=== PATIENT | female | born 1965 | race Two or more races ===

== ENCOUNTER → 2020-05-23 15:11 | Outpatient (BNVA) | payer MEDICARE, OTHER, SELFPAY | PROVIDERS: PCP Internal Medicine; Visit Provider Student in an Organized Health Care Education/Training Program | DX: M05.9 Rheumatoid arthritis with rheumatoid factor, unspecified (principal); B18.1 Chronic viral hepatitis B without delta-agent; Z79.899 Other long term (current) drug therapy | CPT/HCPCS: 99214 ==

== ENCOUNTER → 2020-06-17 09:58 | Outpatient (BNVA) | payer MEDICARE, OTHER, SELFPAY | PROVIDERS: PCP Internal Medicine; Referring Provider Internal Medicine; Visit Provider Nurse Practitioner | DX: Z76.89 Persons encountering health services in other specified circumstances (principal) ==

== ENCOUNTER 2020-09-03 09:20 | Outpatient (REF) | payer MEDICARE, OTHER, SELFPAY ==
[2020-09-03 10:21] LABS: MANUAL DIFF FLAG NO
[2020-09-03 10:24] LABS: Basophils Percent Auto 0.5 % (0-2); Eosinophils Absolute Auto 0.2 X10*3/uL (0.0-0.4); Eosinophils Percent Auto 3.5 % (0-4); Hematocrit 39.6 % (37-47); Hemoglobin 12.7 g/dl (12.0-16.0); Imm Gran Abs Auto 0.01 X10*3/uL (0.00-0.03); Imm Gran Pct Auto 0.2 % (0.0-0.4); Lymphocytes Absolute Auto 2.2 X10*3/uL (1.2-4.9); Lymphocytes Percent Auto 34.2 % (20-40); Mean Corpuscular HGB Conc 32.1 g/dl (31.0-35.0); Mean Corpuscular Hemoglobin 28.5 pg (27.0-33.0); Mean Platelet Volume 10.1 fL (9.4-12.3); Monocytes Absolute Auto 0.5 X10*3/uL (0.1-1.2); Monocytes Percent Auto 6.9 % (2-11); Neutrophils Absolute Auto 3.6 X10*3/uL (2.0-8.3); Neutrophils Percent Auto 54.7 % (45-73); Platelet Count 249 X10*3/uL (160-400); Red Blood Count 4.45 X10*6/uL (4.20-5.50); Red Cell Distribution Width 13.1 % (11.0-16.0); White Blood Count 6.6 X10*3/uL (4.8-10.8)
[2020-09-03 10:52] LABS: Alanine Aminotransferase 37 U/L (0-31); Albumin Level 4.1 g/dL (3.5-5.0); Alkaline Phosphatase 82 U/L (39-117); Anion Gap 12 (12-20); Aspartate Amino Transferase 25 U/L (5-31); Bilirubin Total 0.6 mg/dL (0.0-1.0); Blood Urea Nitrogen 12 mg/dL (9-16); Calcium 9.4 mg/dL (8.4-10.2); Carbon Dioxide 28 mmol/L (22-29); Chloride 103 mmol/L (96-108); Estimated Glomerular Filt Rate > 60; Glucose Random 286 mg/dL (60-115); Potassium 4.1 mmol/l (3.3-5.1); Sodium 139 mmol/L (135-145); Total Protein 7.4 g/dL (6.5-8.0)
[2020-09-03 11:26] LABS: Erythrocyte Sedimentation Rate 23 MM/HR (0-20)
== END 2020-09-03 09:21 | disposition home or self-care (01) ==
LOC: HO.LAB 09:20
PROVIDERS: PCP Internal Medicine; Visit Provider Student in an Organized Health Care Education/Training Program
DX: M05.9 Rheumatoid arthritis with rheumatoid factor, unspecified (principal); B18.1 Chronic viral hepatitis B without delta-agent; Z79.899 Other long term (current) drug therapy
CPT/HCPCS: 36415; 80053; 85025; 85652; 86140; 99212

== ENCOUNTER → 2020-10-03 11:16 | Outpatient (BNVA) | payer MEDICARE, OTHER, SELFPAY | PROVIDERS: PCP Internal Medicine; Visit Provider Nurse Practitioner Gerontology | DX: Z13.89 Encounter for screening for other disorder (principal) | CPT/HCPCS: Q3014 ==

== ENCOUNTER → 2020-10-23 16:24 | Outpatient (BNVA) | payer MEDICARE, SELFPAY | PROVIDERS: PCP Internal Medicine; Visit Provider Student in an Organized Health Care Education/Training Program | DX: M05.9 Rheumatoid arthritis with rheumatoid factor, unspecified (principal); B18.1 Chronic viral hepatitis B without delta-agent; Z79.899 Other long term (current) drug therapy | CPT/HCPCS: 99212 ==

== ENCOUNTER → 2020-10-29 14:22 | Outpatient (BNVA) | payer MEDICARE, SELFPAY | PROVIDERS: Visit Provider Dietitian, Registered ==

== ENCOUNTER 2021-02-12 08:03 | Outpatient (REF) | payer MEDICARE, OTHER, SELFPAY ==
[2021-02-12 08:51] LABS: MANUAL DIFF FLAG NO
[2021-02-12 08:55] LABS: Basophils Percent Auto 0.4 % (0-2); Eosinophils Absolute Auto 0.3 X10*3/uL (0.0-0.4); Eosinophils Percent Auto 4.2 % (0-4); Hematocrit 36.1 % (37-47); Hemoglobin 11.8 g/dl (12.0-16.0); Imm Gran Abs Auto 0.02 X10*3/uL (0.00-0.03); Imm Gran Pct Auto 0.3 % (0.0-0.4); Lymphocytes Absolute Auto 2.6 X10*3/uL (1.2-4.9); Lymphocytes Percent Auto 35.3 % (20-40); Mean Corpuscular HGB Conc 32.7 g/dl (31.0-35.0); Mean Corpuscular Hemoglobin 29.4 pg (27.0-33.0); Mean Corpuscular Volume 89.8 fL (80-98); Mean Platelet Volume 10.3 fL (9.4-12.3); Monocytes Absolute Auto 0.6 X10*3/uL (0.1-1.2); Monocytes Percent Auto 8.2 % (2-11); Neutrophils Absolute Auto 3.8 X10*3/uL (2.0-8.3); Neutrophils Percent Auto 51.6 % (45-73); Platelet Count 269 X10*3/uL (160-400); Red Blood Count 4.02 X10*6/uL (4.20-5.50); Red Cell Distribution Width 14.5 % (11.0-16.0); White Blood Count 7.4 X10*3/uL (4.8-10.8)
[2021-02-12 09:29] LABS: Alanine Aminotransferase 19 U/L (0-31); Albumin Level 3.8 g/dL (3.5-5.0); Alkaline Phosphatase 82 U/L (39-117); Anion Gap 13 (12-20); Aspartate Amino Transferase 22 U/L (5-31); Bilirubin Total 0.3 mg/dL (0.0-1.0); Blood Urea Nitrogen 12 mg/dL (9-16); C Reactive Protein 0.18 mg/dL (< or = 0.50); Calcium 9.2 mg/dL (8.4-10.2); Carbon Dioxide 27 mmol/L (22-29); Chloride 105 mmol/L (96-108); Estimated Glomerular Filt Rate > 60; Glucose Random 160 mg/dL (60-115); Sodium 141 mmol/L (135-145); Total Protein 6.8 g/dL (6.5-8.0)
[2021-02-12 10:19] LABS: Erythrocyte Sedimentation Rate 19 MM/HR (0-20)
== END 2021-02-12 08:04 | disposition home or self-care (01) ==
LOC: HO.LAB 08:03
PROVIDERS: PCP Student in an Organized Health Care Education/Training Program; Visit Provider Internal Medicine
DX: M05.9 Rheumatoid arthritis with rheumatoid factor, unspecified (principal)
CPT/HCPCS: 36415; 80053; 85025; 85652; 86140

== ENCOUNTER → 2021-02-26 14:49 | Outpatient (BNVA) | payer MEDICARE, OTHER, SELFPAY | PROVIDERS: PCP Internal Medicine; Visit Provider Student in an Organized Health Care Education/Training Program | DX: M05.9 Rheumatoid arthritis with rheumatoid factor, unspecified (principal); B18.1 Chronic viral hepatitis B without delta-agent; Z79.899 Other long term (current) drug therapy | CPT/HCPCS: 99212 ==

== ENCOUNTER 2021-03-14 11:14 | Outpatient (REF) | payer MEDICARE, OTHER, SELFPAY ==
[2021-03-14 12:08] LABS: MANUAL DIFF FLAG NO
[2021-03-14 12:16] LABS: Basophils Percent Auto 0.4 % (0-2); Eosinophils Absolute Auto 0.3 X10*3/uL (0.0-0.4); Eosinophils Percent Auto 3.6 % (0-4); Hematocrit 36.4 % (37-47); Hemoglobin 11.8 g/dl (12.0-16.0); Imm Gran Abs Auto 0.01 X10*3/uL (0.00-0.03); Imm Gran Pct Auto 0.1 % (0.0-0.4); Lymphocytes Absolute Auto 2.3 X10*3/uL (1.2-4.9); Lymphocytes Percent Auto 31.9 % (20-40); Mean Corpuscular HGB Conc 32.4 g/dl (31.0-35.0); Mean Corpuscular Hemoglobin 29.1 pg (27.0-33.0); Mean Corpuscular Volume 89.9 fL (80-98); Mean Platelet Volume 10.7 fL (9.4-12.3); Monocytes Absolute Auto 0.4 X10*3/uL (0.1-1.2); Monocytes Percent Auto 6.1 % (2-11); Neutrophils Absolute Auto 4.2 X10*3/uL (2.0-8.3); Neutrophils Percent Auto 57.9 % (45-73); Platelet Count 263 X10*3/uL (160-400); Red Blood Count 4.05 X10*6/uL (4.20-5.50); Red Cell Distribution Width 14.2 % (11.0-16.0); White Blood Count 7.2 X10*3/uL (4.8-10.8)
[2021-03-14 12:28] LABS: Alanine Aminotransferase 31 U/L (0-31); Albumin Level 3.8 g/dL (3.5-5.0); Alkaline Phosphatase 73 U/L (39-117); Anion Gap 11 (12-20); Aspartate Amino Transferase 27 U/L (5-31); Bilirubin Total 0.2 mg/dL (0.0-1.0); Blood Urea Nitrogen 7 mg/dL (9-16); C Reactive Protein 0.13 mg/dL (< or = 0.50); Calcium 9.4 mg/dL (8.4-10.2); Carbon Dioxide 27 mmol/L (22-29); Chloride 105 mmol/L (96-108); Estimated Glomerular Filt Rate > 60; Glucose Random 231 mg/dL (60-115); Potassium 4.3 mmol/L (3.3-5.1); Sodium 139 mmol/L (135-145); Total Protein 6.8 g/dL (6.5-8.0)
[2021-03-14 13:02] LABS: Erythrocyte Sedimentation Rate 19 MM/HR (0-20)
[2021-03-16 18:36] LABS: TS Negative Control Passed; TS Panel A 0; TS Panel B 0; TS Positive Control Passed; TSpotTB Negative (SeeBelow)
== END 2021-03-14 11:15 | disposition home or self-care (01) ==
LOC: HO.LAB 11:14
PROVIDERS: PCP Internal Medicine; Visit Provider Student in an Organized Health Care Education/Training Program
DX: Z11.1 Encounter for screening for respiratory tuberculosis (principal); M05.9 Rheumatoid arthritis with rheumatoid factor, unspecified
CPT/HCPCS: 36415; 80053; 85025; 85652; 86140; 86481

== ENCOUNTER → 2021-04-07 09:53 | Outpatient (BNVA) | payer MEDICARE, OTHER, SELFPAY | PROVIDERS: Visit Provider Internal Medicine | DX: G89.4 Chronic pain syndrome (principal); M05.9 Rheumatoid arthritis with rheumatoid factor, unspecified; M79.7 Fibromyalgia; M79.18 Myalgia, other site | CPT/HCPCS: 99202 ==

== ENCOUNTER → 2021-04-18 13:51 | Outpatient (BNVA) | payer MEDICARE, OTHER, SELFPAY | PROVIDERS: Visit Provider Nurse Practitioner Gerontology | DX: E11.3219 Type 2 diabetes mellitus with mild nonproliferative diabetic retinopathy with macular edema, unspecified eye (principal); I10 Essential (primary) hypertension; E78.00 Pure hypercholesterolemia, unspecified; E55.9 Vitamin D deficiency, unspecified; Z79.4 Long term (current) use of insulin | CPT/HCPCS: 82947; 83036; 99212 ==

== ENCOUNTER 2021-04-25 11:45 | Outpatient (REF) | payer MEDICARE, OTHER, SELFPAY ==
--- NOTE | ~2021-04-25 | MM_ITS ---
EXAMINATION: MM SCREENING DIGITAL BREAST TOMOSYNTHESIS, BILATERAL CLINICAL INFORMATION: Screening. Asymptomatic. The lifetime risk of breast cancer based on the Tyrer-Cuzick Model is 23.5%. Additional annual screening with breast MRI may be of benefit in women with a Score of 20% or greater. COMPARISON: Mammography: January 15, 2020 and studies dating back to April 23, 2014 TECHNIQUE: Digital breast tomosynthesis is performed in both the craniocaudal and mediolateral oblique views along with computer-aided detection (CAD). Synthesized 2D images are generated from the tomosynthesis. FINDINGS: The breasts are heterogeneously dense, which may obscure small masses (ACR BI-RADS breast composition Category c). There are no new significant masses, abnormal calcifications, or other abnormalities. Region of architectural distortion upper outer aspect of the left breast again seen. MM/MM tomosynthesis screening BI IMPRESSION: There are no significant changes from prior study. ASSESSMENT: BI-RADS 2: Benign RECOMMENDATION: Routine annual mammography screening. This patient's information was entered into a reminder system with a target due date for their next mammogram.
== END 2021-04-25 11:46 | disposition home or self-care (01) ==
LOC: HO.MAMMO 11:45
PROVIDERS: PCP Internal Medicine; Visit Provider Internal Medicine
DX: Z12.31 Encounter for screening mammogram for malignant neoplasm of breast (principal)
CPT/HCPCS: 77063; 77067

== ENCOUNTER 2021-06-20 21:56 | Emergency (ER) | payer MEDICARE, OTHER, SELFPAY ==
--- NOTE | ~2021-06-20 | CT_ITS ---
EXAMINATION: NONCONTRAST HEAD CT NONCONTRAST CERVICAL SPINE CT INDICATION INFORMATION: Fall COMPARISON: None TECHNIQUE: Separate noncontrast CT examinations of the head and cervical spine were performed. Coronal and sagittal images were created for each examination at the technologist workstation. This CT examination was performed using dose optimization techniques as appropriate, variously including the following: *Automated exposure control *Adjustment of mA and/or kV according to patient size (this includes techniques or standardized protocols for targeted exams where dose is matched to indication/reason for exam; i.e. extremities or head) *Use of iterative reconstruction technique DLP: 1109 mGy-cm FINDINGS: Head: There is no evidence of acute intracranial hemorrhage or territorial infarction. No abnormal mass effect or midline shift is seen. Fontanez to white matter differentiation is well preserved. No extra-axial fluid collections are identified. No hydrocephalus. No significant volume loss. There is no abnormal attenuation within the brain parenchyma. Subgaleal hematoma overlies the right parietal region. No calvarial fracture. Mild mucoperiosteal thickening of the right sphenoid sinus and of the ethmoid air cells. The mastoid air cells and visualized portions of the paranasal sinuses are otherwise well aerated. Cervical spine: Straightening of the normal cervical lordosis. There is otherwise anatomic alignment of the vertebral bodies and posterior elements. The atlantoaxial and atlantooccipital articulations are intact. Vertebral body heights maintained. Mild disc space narrowing at C5-C6 with small endplate osteophytes. No evidence of acute fracture. No prevertebral soft tissue swelling. Visualized portions of the lung apices are unremarkable. The thyroid gland is heterogeneous with subcentimeter nodules. No follow-up imaging recommended. CT/CT cervical spine wo con IMPRESSION: 1. No acute intracranial finding. Prominent subgaleal hematoma over the right parietal region. 2. No fracture or malalignment of the cervical spine.
[2021-06-20 21:59] VITALS: BP 172/98; PULSE 95; RESP 20; TEMP 35.6; O2SAT 98; BMI 27.3
--- NOTE | 2021-06-20 22:13 | ED_ITS ---
HPI - Fall General Chief Complaint: Fall Stated Complaint: fall Time Seen by Provider: 06/20/21 22:13 Source: patient and family Mode of arrival: EMS Limitations: no limitations History of Present Illness HPI Narrative: Every patient had few drinks tonight lost balance and fell on the stairs hitting her head to the ground , no loss of consciousness no nausea no vomiting no other focal weakness patient is not on any blood thinners Related Data Home Medications Medication Instructions Recorded Confirmed methotrexate sodium 2.5 mg tablet See Rx Instructions PO QWEEK 05/23/20 04/18/21 gabapentin 400 mg capsule 400 mg PO QID cap 10/03/20 04/07/21 ketorolac 0.5 % eye drops 1 drp OPHTHALMIC-RIGHT QID 10/03/20 04/07/21 insulin glargine 100 unit/mL (3 12 unit SUBCUT QPM ml 04/18/21 04/18/21 mL) subcutaneous pen (Lantus Solostar U-100 Insulin) Previous Rx's Medication Instructions Recorded pen needle, diabetic 32 gauge x #100 ea 09/03/20 (BD Ultra-Fine Yessi Pen Needle) cholecalciferol (vitamin D3) 25 25 mcg PO DAILY #90 cap 11/21/20 mcg (1,000 unit) capsule (Vitamin D3) diclofenac sodium 1 % topical gel 4 g TOPICAL BID #100 g 02/26/21 (Voltaren Arthritis Pain) folic acid 1 mg tablet 1 mg PO DAILY #90 tab 03/25/21 sulfasalazine 500 mg tablet 1,000 mg PO BID #120 tab 03/25/21 trazodone 100 mg tablet 100 mg PO BEDTIME PRN 90 Days #90 03/25/21 tab dulaglutide 0.75 mg/0.5 mL 0.75 mg (0.5 mL) SUBCUT QWEEK #2 ml 04/18/21 [facility] glipizide 5 mg-metformin 500 mg 1 tab PO BID #180 tab 05/26/21 tablet atorvastatin 80 mg tablet 80 mg PO DAILY #90 tab 06/13/21 lisinopril 5 mg tablet 5 mg PO DAILY 90 Days #90 tab 06/13/21 duloxetine 20 mg capsule,delayed 20 mg PO BID #60 cap 06/19/21 release Allergies Allergy/AdvReac Type Severity Reaction Status Date / Time bee pollen [BEE STINGS] Allergy Intermediate HIVES Verified 04/18/21 14:12 wasp bites Allergy Intermediate hives Uncoded 04/18/21 14:12 Review of Systems Review of Systems: Yes all other systems are reviewed and are negative [facility] Past Medical History Medical History Anxiety Depression Diabetes mellitus Fibromyalgia Hepatitis B Hyperlipidemia Hypertension Hypovitaminosis D Myofascial pain Rheumatoid arthritis Type 2 diabetes, uncontrolled, with nonproliferative retinopathy with macular edema Surgical History H/O left breast biopsy H/O oral surgery H/O: knee surgery History of hysterectomy Family History Family History Father CVD (cardiovascular disease) HTN (hypertension) Diabetes Brother CVD (cardiovascular disease) Mother Liver cancer Son Asthma Paternal Aunt HTN (hypertension) Diabetes Social History Social History Household Members: Spouse Housing: House Alcohol intake: current Alcohol intake frequency: a few times a month Alcohol type: wine and hard liquor Patient Tobacco Use Status: Never used Tobacco e-Cigarette/Vaping Use: Never Used Advance Directives: No Patient : No Current occupational status: disabled Physical Exam Vital Signs: Vital Signs: Last Vital Signs Temp 96.1 F L 06/20/21 21:59 Pulse 95 06/20/21 21:59 Resp 20 06/20/21 21:59 BP 172/98 H 06/20/21 21:59 Pulse Ox 98 06/20/21 21:59 Body Mass Index 27.3 Appearance: Alert. Oriented X3. No acute distress. Intoxicated Eyes: PERRLA, No Nystagmus ENT: Pharynx normal. Oral Mucosa moist Neck: Normal inspection. Neck supple. CVS: Normal heart rate and rhythm. Pulses normal. Respiratory: No respiratory distress. Equal air entry bilateral, no wheezing/rales/rhonchi Abdomen: Soft and nontender. Bowel sounds are present, no mass palpable, no CVA tenderness Skin: Skin warm and dry. Normal skin color. Normal skin turgor. Extremities: No lower extremity edema. No calf tenderness Neuro: Oriented X 3. No motor deficit. No sensory deficit.No cerebellar signs , cranial nerves II-XII intact HENMT: Head images: 1. Soft tissue swelling occipital area no open wound or laceration MDM - Fall MDM Narrative Medical decision making narrative: Patient status post mechanical fall the influence of alcohol head CT C-spine negative patient ambulatory in the ER will send her home with family Discharge Plan Discharge Clinical Impression: Closed head injury Qualifiers: Encounter type: initial encounter Qualified Code(s): S09.90XA - Unspecified injury of head, initial encounter Patient Disposition: Home, Self-Care Instructions: Head Injury (ED) Additional Instructions: Do not drink alcohol Apply ice, care as advised Prescriptions: No Action (DME) pen needle, diabetic [BD Ultra-Fine Yessi Pen Needle] 32 gauge x 5/32 needle See Rx Instructions .ROUTE .MEDSUPPLY Qty: 100 RF: 3 cholecalciferol (vitamin D3) [Vitamin D3] 25 mcg (1,000 unit) capsule 25 mcg PO DAILY Qty: 90 RF: 3 trazodone 100 mg tablet 100 mg PO BEDTIME PRN (Reason: insomnia) 90 Days Qty: 90 RF: 0 sulfasalazine 500 mg tablet 1,000 mg PO BID Qty: 120 RF: 2 folic acid 1 mg tablet 1 mg PO DAILY Qty: 90 RF: 3 glipizide-metformin 5-500 mg tablet 1 tab PO BID Qty: 180 RF: 0 atorvastatin 80 mg tablet 80 mg PO DAILY Qty: 90 RF: 1 lisinopril 5 mg tablet 5 mg PO DAILY 90 Days Qty: 90 RF: 1 duloxetine 20 mg capsule,delayed release(DR/EC) 20 mg PO BID Qty: 60 RF: 5 ketorolac 0.5 % drops 1 drp ophthalmic-Right QID RF: 0 diclofenac sodium [Voltaren Arthritis Pain] 1 % gel 4 g topical BID Qty: 100 RF: 2 Lantus Solostar U-100 Insulin 100 unit/mL (3 mL) insulin pen 12 unit subcut QPM RF: 0 Trulicity 0.75 mg/0.5 mL pen injector 0.75 mg subcut QWEEK Qty: 2 RF: 6 methotrexate sodium 2.5 mg tablet See Rx Instructions PO QWEEK RF: 0 gabapentin 400 mg capsule 400 mg PO QID RF: 0
--- NOTE | 2021-06-20 22:32 | PC.NURSE ---
PATIENT IN CT SCAN AT THIS TIME. SON AT BEDSIDE.
[2021-06-21] MEDS: Ondansetron ODT 4 MG TAB.RAPDIS TRANSLINGU (00:24)
== END 2021-06-21 00:20 | disposition home or self-care (01) ==
PROVIDERS: Emergency Provider Internal Medicine; PCP Internal Medicine
DX: S09.90XA Unspecified injury of head, initial encounter (principal); E11.9 Type 2 diabetes mellitus without complications; I10 Essential (primary) hypertension; W10.9XXA Fall (on) (from) unspecified stairs and steps, initial encounter; Y93.9 Activity, unspecified; Y92.9 Unspecified place or not applicable; Y99.9 Unspecified external cause status
CPT/HCPCS: 70450; 72125; 99284

== ENCOUNTER 2021-06-23 08:59 | Outpatient (REF) | payer MEDICARE, OTHER, SELFPAY ==
[2021-06-23 11:03] LABS: Cholesterol 157 mg/dL; HDL Cholesterol 48 mg/dL; LDL Cholesterol Calculated 87 mg/dl; Triglycerides 111 mg/dL
[2021-06-23 11:26] LABS: Vitamin D 25-OH Total 36.8 ng/mL (>30)
== END 2021-06-23 09:00 | disposition home or self-care (01) ==
LOC: HO.LAB 08:59
PROVIDERS: Absent Provider Nurse Practitioner Gerontology; PCP Internal Medicine; Visit Provider Internal Medicine
DX: M05.9 Rheumatoid arthritis with rheumatoid factor, unspecified (principal); G89.4 Chronic pain syndrome; E11.9 Type 2 diabetes mellitus without complications; E55.9 Vitamin D deficiency, unspecified
CPT/HCPCS: 36415; 80061; 82306; 99212

== ENCOUNTER → 2021-07-28 10:33 | Outpatient (BNVA) | payer MEDICARE, OTHER, SELFPAY | PROVIDERS: PCP Internal Medicine; Visit Provider Internal Medicine | DX: M79.18 Myalgia, other site (principal); M05.9 Rheumatoid arthritis with rheumatoid factor, unspecified; G89.4 Chronic pain syndrome | CPT/HCPCS: 99212 ==

== ENCOUNTER 2021-11-04 11:33 | Outpatient (REF) | payer MEDICARE, SELFPAY ==
[2021-11-04 13:50] LABS: MANUAL DIFF FLAG NO
[2021-11-04 13:53] LABS: Basophils Percent Auto 0.4 % (0-2); Eosinophils Absolute Auto 0.2 X10*3/uL (0.0-0.4); Eosinophils Percent Auto 2.8 % (0-4); Hematocrit 40.3 % (37.0-47.0); Hemoglobin 12.9 g/dl (12.0-16.0); Imm Gran Abs Auto 0.02 X10*3/uL (0.00-0.03); Imm Gran Pct Auto 0.3 % (0.0-0.4); Lymphocytes Absolute Auto 2.9 X10*3/uL (1.2-4.9); Lymphocytes Percent Auto 37.8 % (20-40); Mean Corpuscular Hemoglobin 28.7 pg (27.0-33.0); Mean Corpuscular Volume 89.8 fL (80.0-98.0); Mean Platelet Volume 10.9 fL (9.4-12.3); Monocytes Absolute Auto 0.4 X10*3/uL (0.1-1.2); Monocytes Percent Auto 5.3 % (2-11); Neutrophils Absolute Auto 4.1 x10*3/uL (2.0-8.3); Neutrophils Percent Auto 53.4 % (45-73); Platelet Count 264 X10*3/uL (160-400); Red Blood Count 4.49 X10*6/uL (4.20-5.50); Red Cell Distribution Width 13.2 % (11.0-16.0); White Blood Count 7.6 X10*3/uL (4.8-10.8)
[2021-11-04 14:07] LABS: Alanine Aminotransferase 21 U/L (0-31); Albumin Level 4.1 g/dL (3.5-5.0); Alkaline Phosphatase 90 U/L (39-117); Anion Gap 10 (12-20); Aspartate Amino Transferase 22 U/L (5-31); Bilirubin Total 0.2 mg/dL (0.0-1.0); Blood Urea Nitrogen 12 mg/dL (9-16); Calcium 9.4 mg/dL (8.4-10.2); Carbon Dioxide 29 mmol/L (22-29); Chloride 105 mmol/L (96-108); Estimated Glomerular Filt Rate > 60; Glucose Random 187 mg/dL (60-115); Potassium 4.2 mmol/L (3.3-5.1); Sodium 140 mmol/L (135-145); Total Protein 7.5 g/dL (6.5-8.0)
[2021-11-04 14:30] LABS: TSH reflex Free T4 2.11 uIU/mL (0.32-4.0)
[2021-11-04 14:38] LABS: Estimated Average Glucose 229 mg/dL; Hemoglobin A1c % 9.6 %
[2021-11-06 07:37] LABS: LDL Cholesterol Direct 88 mg/dL (<100)
== END 2021-11-04 11:34 | disposition home or self-care (01) ==
LOC: HO.HMGCLDS 11:33
PROVIDERS: Visit Provider Internal Medicine
DX: E11.65 Type 2 diabetes mellitus with hyperglycemia (principal); E11.3219 Type 2 diabetes mellitus with mild nonproliferative diabetic retinopathy with macular edema, unspecified eye; I10 Essential (primary) hypertension; E78.5 Hyperlipidemia, unspecified; G47.9 Sleep disorder, unspecified; M79.18 Myalgia, other site; F41.1 Generalized anxiety disorder
CPT/HCPCS: 36415; 80053; 83036; 83721; 84443; 85025

== ENCOUNTER → 2021-12-15 09:29 | Outpatient (BNVA) | payer MEDICARE, SELFPAY | PROVIDERS: PCP Internal Medicine; Visit Provider Internal Medicine | DX: M05.9 Rheumatoid arthritis with rheumatoid factor, unspecified (principal); G89.29 Other chronic pain | CPT/HCPCS: 99212 ==

== ENCOUNTER 2021-12-17 10:50 | Outpatient (REF) | payer MEDICARE, SELFPAY ==
--- NOTE | ~2021-12-17 | XR_ITS ---
EXAMINATION: XR KNEE, RIGHT XR SHOULDER, RIGHT CLINICAL INFORMATION: Rheumatoid arthritis. COMPARISON: None. TECHNIQUE: Right knee 3 views. Right shoulder 4 views. FINDINGS: RIGHT KNEE: Minimal loss of medial compartment joint space. The lateral and patellofemoral compartment joint space is normal. There is trace suprapatellar joint effusion. No bony lytic or sclerotic process seen. There are no loose bodies or bony erosive changes. RIGHT SHOULDER: There is minimal loss of right glenohumeral joint space. The AC joint space is normal. There is no visible acute fracture, dislocation or subluxation. The soft tissues are normal. XR/XR shoulder RT min 2V IMPRESSION: Minimal loss of medial compartment joint space right knee. No visible acute fracture or dislocation. Mild loss of glenohumeral joint space, likely early arthritic changes. No visible acute fracture, dislocation or subluxation seen.
--- NOTE | ~2021-12-17 | XR_ITS ---
EXAMINATION: XR KNEE, RIGHT XR SHOULDER, RIGHT CLINICAL INFORMATION: Rheumatoid arthritis. COMPARISON: None. TECHNIQUE: Right knee 3 views. Right shoulder 4 views. FINDINGS: RIGHT KNEE: Minimal loss of medial compartment joint space. The lateral and patellofemoral compartment joint space is normal. There is trace suprapatellar joint effusion. No bony lytic or sclerotic process seen. There are no loose bodies or bony erosive changes. RIGHT SHOULDER: There is minimal loss of right glenohumeral joint space. The AC joint space is normal. There is no visible acute fracture, dislocation or subluxation. The soft tissues are normal. XR/XR knee RT 3V IMPRESSION: Minimal loss of medial compartment joint space right knee. No visible acute fracture or dislocation. Mild loss of glenohumeral joint space, likely early arthritic changes. No visible acute fracture, dislocation or subluxation seen.
[2021-12-17 13:56] LABS: Alanine Aminotransferase 16 U/L (0-31); Albumin Level 3.9 g/dL (3.5-5.0); Alkaline Phosphatase 83 U/L (39-117); Anion Gap 13 (12-20); Aspartate Amino Transferase 19 U/L (5-31); Bilirubin Total 0.2 mg/dL (0.0-1.0); Blood Urea Nitrogen 11 mg/dL (9-16); C Reactive Protein 0.14 mg/dL (< or = 0.50); Calcium 9.5 mg/dL (8.4-10.2); Carbon Dioxide 26 mmol/L (22-29); Chloride 104 mmol/L (96-108); Estimated Glomerular Filt Rate > 60; Glucose Random 213 mg/dL (60-115); Potassium 4.3 mmol/L (3.3-5.1); Sodium 139 mmol/L (135-145)
[2021-12-17 14:13] LABS: Erythrocyte Sedimentation Rate 27 MM/HR (0-20)
[2021-12-18 05:59] LABS: HBS Num1 0.12 mIU/mL (0-7.99); ~Hepatitis B Surface Antibody NONREACTIVE (Nonreactive)
[2021-12-18 06:43] LABS: HBc Num2 9.79 S/CO; HBc Num3 10.23 S/CO; Hepatitis B Core Antibody Reactive (Nonreactive)
[2021-12-18 07:26] LABS: HBsAGNum2 Reactive; HBsAGNum3 Reactive; Hepatitis B Surface Antigen Retest CNFM (Negative)
[2021-12-18 07:29] LABS: Hepatitis B Surface Antigen Rep Reactive (Negative)
== END 2021-12-17 10:51 | disposition home or self-care (01) ==
LOC: HO.LAB 10:50
PROVIDERS: PCP Internal Medicine; Visit Provider Internal Medicine Rheumatology
DX: M05.9 Rheumatoid arthritis with rheumatoid factor, unspecified (principal); E11.3219 Type 2 diabetes mellitus with mild nonproliferative diabetic retinopathy with macular edema, unspecified eye; E11.65 Type 2 diabetes mellitus with hyperglycemia; B18.1 Chronic viral hepatitis B without delta-agent; Z79.899 Other long term (current) drug therapy
CPT/HCPCS: 36415; 73030; 73562; 80053; 85652; 86140; 86704; 86706; 87340; 99212

== ENCOUNTER → 2021-12-22 09:56 | Outpatient (BNVA) | payer MEDICARE, SELFPAY | PROVIDERS: PCP Internal Medicine; Visit Provider Nurse Practitioner Gerontology | DX: E11.3219 Type 2 diabetes mellitus with mild nonproliferative diabetic retinopathy with macular edema, unspecified eye (principal); E78.00 Pure hypercholesterolemia, unspecified; E55.9 Vitamin D deficiency, unspecified; I10 Essential (primary) hypertension; Z79.4 Long term (current) use of insulin | CPT/HCPCS: 82947; 99212 ==

== ENCOUNTER 2022-09-08 11:42 | Outpatient (REF) | payer MEDICARE, SELFPAY ==
--- NOTE | ~2022-09-08 | MM_ITS ---
EXAMINATION: MM SCREENING DIGITAL BREAST TOMOSYNTHESIS, BILATERAL CLINICAL INFORMATION: Screening. Asymptomatic. The lifetime risk of breast cancer based on the Tyrer-Cuzick Model is 12%. COMPARISON: Mammography: 04/25/2021, 01/15/2020, 12/02/2018 TECHNIQUE: Digital breast tomosynthesis is performed in both the craniocaudal and mediolateral oblique views along with computer-aided detection (CAD). Synthesized 2D images are generated from the tomosynthesis. FINDINGS: The breasts are heterogeneously dense, which may obscure small masses (ACR BI-RADS breast composition Category c). There is no significant change from prior studies. No significant mass or interval architectural abnormality or developing density. Scattered bilateral calcifications are again seen. The axilla and skin contours are unremarkable. Left breast again shows 2 biopsy clip markers posterior upper outer quadrant and a probable degenerating fibroadenoma posterior 3:00 position with peripheral coarse calcification. MM/MM tomosynthesis screening BI IMPRESSION: No significant changes from prior exam. ASSESSMENT: BI-RADS 2: Benign RECOMMENDATION: Routine annual mammography screening. This patient's information was entered into a reminder system with a target due date for their next mammogram.
== END 2022-09-08 11:43 | disposition home or self-care (01) ==
LOC: HO.MAMMO 11:42
PROVIDERS: Visit Provider Internal Medicine
DX: Z12.31 Encounter for screening mammogram for malignant neoplasm of breast (principal)
CPT/HCPCS: 77063; 77067

== ENCOUNTER 2023-02-22 10:18 | Outpatient (REF) | payer MEDICARE, SELFPAY ==
[2023-02-22 14:22] LABS: Estimated Average Glucose 258 mg/dL; Hemoglobin A1c % 10.6 %
[2023-02-22 14:31] LABS: Alanine Aminotransferase 24 U/L (0-31); Albumin Level 3.7 g/dL (3.5-5.0); Alkaline Phosphatase 96 U/L (39-117); Anion Gap 10 (12-20); Aspartate Amino Transferase 27 U/L (5-31); Bilirubin Total 0.4 mg/dL (0.0-1.0); Blood Urea Nitrogen 18 mg/dL (9-16); Calcium 9.4 mg/dL (8.4-10.2); Carbon Dioxide 26 mmol/L (22-29); Chloride 108 mmol/L (96-108); Estimated Glomerular Filt Rate > 60; Glucose Random 120 mg/dL (60-115); Sodium 140 mmol/L (135-145); Total Protein 7.1 g/dL (6.5-8.0)
== END 2023-02-22 10:19 | disposition home or self-care (01) ==
LOC: HO.HMGCLDS 10:18
PROVIDERS: PCP Internal Medicine; Visit Provider Internal Medicine
DX: E78.5 Hyperlipidemia, unspecified (principal); F41.1 Generalized anxiety disorder; G89.4 Chronic pain syndrome; I10 Essential (primary) hypertension; M79.7 Fibromyalgia; Z79.4 Long term (current) use of insulin
CPT/HCPCS: 36415; 80053; 83036

== ENCOUNTER 2023-02-23 10:45 | Outpatient (AMB) | payer MEDICARE, SELFPAY ==
--- NOTE | 2023-02-23 10:49 | A.OFFVIS_ITS ---
Intake Vital Signs 02/23/23 10:50 Height 5 ft 3 in Weight 151 lb 8 oz BMI 26.8 BP 122/76 Blood Pressure Location Lt brachial Position Sitting Pulse 92 Pulse Source Pulse Oximeter Pulse Oximetry (%) 98 Oxygen Delivery Method Room Air Intake Visit Reasons: [facility] G0439 Allergies wasp bites Allergy (Intermediate, Uncoded 09/15/22 14:49) hives Medication List - Last Reconciled 02/23/23 by Vadim Sal MD atorvastatin 80 mg PO DAILY cholecalciferol (vitamin D3) (Vitamin D3) 25 mcg PO DAILY diclofenac sodium 1% (Voltaren Arthritis Pain) 2 grams topical BID duloxetine 20 mg PO BID 90 days epinephrine 0.3 mg IM Q4H PRN epinephrine (EpiPen) 0.3 mg (0.3 mL) IM Q10M PRN 90 days gabapentin 300 mg PO TID insulin glargine (Lantus Solostar U-100 Insulin) 45 units (0.45 mL) subcut DAILY 90 days ketorolac 0.5% 1 drp ophthalmic (eye) QID lisinopril 5 mg PO DAILY 90 days pen needle, diabetic (BD Ultra-Fine Yessi Pen Needle) As directed once daily sulfasalazine 1,000 mg (2 x 500 mg) PO BID trazodone 100 mg PO BEDTIME PRN 90 days HPI [facility] G0439 HPI Details Patient is 57-year-old female came in today for Medicare wellness visit and for her regular follow-up Patient says that her insurance does not cover a lot of medications we talked about getting a supplemental insurance it is very important that patient is able to get the medication which we are prescribing as her sugar is uncontrolled. Last hemoglobin A1c was 10.6 on February 22 of this month which has improved from previous which was above 14 She has still not called endocrinology to book the appointment I have send them a message if they can see the patient urgently. I have sent Trulicity again for the patient if insurance does not cover I will try to get it approved. Medication list reviewed She says that the pharmacy never seen duloxetine which I have sent for her she would like to change the pharmacy this time to [facility] Trazodone sent as well and insulin sent as well she is currently taking 45 units of long-acting insulin at night but she is skipping the morning insulin of 30 units as she feels the morning sugar is running low I have told her to start checking her sugar 2 hours after eating breakfast Patient is to return in 3 months for follow-up appointment HPI Comments History of Present Illness Details AWV Medical/social history reviewed Past medical history reviewed Delancey of care / care team list updated Surgical/ hospitalization history reviewed Current medications including OTC and supplements reviewed Family history reviewed Tobacco controlled form updated Alcohol use form updated Illicit drug use in social history reviewed Current diagnosis of depression ?screening updated Appropriate PHQ 2/PHQ-9 completed . Vital signs reviewed Alcohol tobacco drug use reviewed and discussed . MMSE completed . ? Fall risk: ?Assessed Fall history: ?None Have you had any falls with injury in the past year?? No Have you had 2 or more falls in the past year?? No Fall risk assessment completed Home safety discussed with the patient Functional ability assessed and discussed and documented Activities of daily living reviewed and appropriate actions taken . HRA filled out by the patient and reviewed by provider and scanned . Appropriate written screening schedule established . Any health advise needed provided . Advance care planning discussed with the patient , necessary paperwork filled Examination IPPE/AWE: Balance intact Romberg intact Tandem walk intact walk-in turn intact rise from sit to stand intact . ?Hearing ?whisper test pass . Medication list reviewed, patient is stable on medications All other providers patient is seeing discussed and noted . [facility] Medical History Anxiety Depression Diabetes mellitus Fibromyalgia Hepatitis B Hyperlipidemia Hypertension Hypovitaminosis D FPC use of drug Myofascial pain Rheumatoid arthritis Shoulder pain Type 2 diabetes, uncontrolled, with nonproliferative retinopathy with macular edema Surgical History H/O left breast biopsy H/O oral surgery H/O: knee surgery History of hysterectomy Family History Father CVD (cardiovascular disease) HTN (hypertension) Diabetes Brother CVD (cardiovascular disease) Mother Liver cancer Son Asthma Paternal Aunt HTN (hypertension) Diabetes Social History Household Members: Spouse Housing: House Alcohol intake: current Alcohol intake frequency: a few times a month Alcohol type: wine and hard liquor Patient Tobacco Use Status: Never used Tobacco e-Cigarette/Vaping Use: Never Used Current occupational status: disabled Cognitive needs: No Hearing needs: No Vision needs: Yes Questionnaire Medicare Wellness Checkup What gender do you identify with?: female During the past 4 weeks, how much have you been bothered by emotional problems such as feeling anxious, depressed, irritable, sad or downhearted, and blue?: quite a bit During the past 4 weeks, has your physical & emotional health limited your social activities with family, friends, neighbors, or groups?: quite a bit During the past 4 weeks, how much bodily pain have you generally had?: severe pain During the past 4 weeks, was someone available to help you if you needed & wanted help?: yes, some During the past 4 weeks, what was the hardest physical activity you could do for at least 2 minutes?: light Can you get to places out of walking distance without help? (For eg., can you travel alone on buses, taxis or drive your car?): Yes Can you go shopping for groceries or clothes without someone's help?: Yes Can you prepare your own meals?: Yes Can you do your housework without help?: Yes Because of any health problems, do you need the help of another person with your personal care needs such as eating, bathing, dressing or getting around the house?: No Can you handle your own money without help?: Yes During the past 4 weeks, how would you rate your health in general?: fair During the past 4 weeks how have things been going for you?: good & bad parts about equal Are you having difficulties driving your car?: no Do you always fasten your seat belt when you are in a car?: yes, usually During past 4 weeks, have you been bothered by the following: never: Problems using the telephone?, seldom: Teeth or denture problems?, sometimes: Falling or dizzy when standing up and Trouble eating well? and always: Tiredness or fatigue? Have you fallen 2 or more times in the past year?: No Are you afraid of falling?: Yes Are you a smoker?: no During the past 4 weeks, how many drinks of wine, beer, or other alcoholic beverages did you have?: no alcohol at all Do you exercise for about 20 minutes 3 or more times a week?: yes, most of the time How often do you have trouble taking medicines the way you have been told to take them?: I always take medicine as prescribed How confident are you that you can control & manage most of your health problems?: not very confident What is your race?: White Mini Mental State Exam (MMSE) Orientation What is the (year) (season) (date) (day) (month)?: year, season, date, day and month Where are we (state) (county) (town or city) (hospital) (floor)?: state, county, town or city, hospital/clinic and floor Score Score: 10 Activity of Daily Living Bathing - sponge bath, tub bath or shower: receives no assistance (gets in/out by self, if usual bathing means Dressing - getting clothes from closets & drawers, including inner/outer garments & fasteners.: gets clothes & gets completely dressed without help Toileting - going to the 'toilet room' for urine/bowel elimination & cleaning self/arranging clothes: goes to toilet room, cleans self, arranges clothes without help Transfer: moves in & out of bed and chair without help (may use support object) Continence: controls urination/bowel movements completely by self Feeding: feeds self without help Total Score: 0 Information obtained from: patient Using telephone: independent Traveling: independent Shopping: independent Preparing meals: independent Housework: independent Taking medicine: independent Managing money: independent PHQ-9 Over the last 2 weeks, how often have you been bothered by any of the following problems? 1. Little interest or pleasure in doing things: several days 2. Feeling down, depressed, or hopeless: several days 3. Trouble falling or staying asleep, or sleeping too much: nearly every day 4. Feeling tired or having little energy: more than half the days 5. Poor appetite or overeating: several days 6. Feeling bad about yourself - or that you are a failure or have let yourself or your family down: more than half the days 7. Trouble concentrating on things, such as reading the newspaper or watching television: more than half the days 8. Moving or speaking so slowly that other people could have noticed. Or the op posite - being so fidgety or restless that you have been moving around a lot more than usual: not at all 9. Thoughts that you would be better off or of hurting yourself in some way: not at all Total score: 12 Depression Screening Interpretation: Positive 51421 - PHQ-9 Billing: Yes Source: Developed by Drs. Darell Mina, Marjan Connolly, Sascha Thompson and colleagues, with an educational jameel from [employer]. Review of Systems Const Denies chills and Denies fever(s) ENT Denies epistaxis and Denies nasal discharge Card Denies chest pain Resp Denies chest congestion, Denies cough and Denies hemoptysis GI Denies diarrhea and Denies nausea Skin/Breast Denies rash Neuro Reports no additional complaints Psych Reports no additional complaints Endo Reports no additional complaints Physical Exam Vital Signs: Last Vital Signs Pulse 92 02/23/23 10:50 BP 122/76 02/23/23 10:50 Pulse Ox 98 02/23/23 10:50 Oxygen Delivery Method Room Air 02/23/23 10:50 BMI result Body Mass Index 26.8 Const General: cooperative, comfortable and no acute distress Orientation/consciousness: patient oriented x3 HEENT Head: Yes normocephalic Eyes General: appearance normal, both eyes and all related structures Neck Other: Supple Neck: Yes supple Resp Effort & Inspection: normal respiratory effort, no cough and no stridor Cardio Rhythm: regular rhythm Heart sounds: S1 normal heart sound present and S2 normal heart sound present Skin General skin exam: turgor normal Neuro Other: Motor sensory intact General: patient oriented x3, tone normal and moves all extremities Extrem Other: No lower extremity swelling. 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 (3) Type 2 diabetes, uncontrolled, with nonproliferative retinopathy with macular edema: Code(s): E11.3219 - Type 2 diabetes mellitus with mild nonproliferative diabetic retinopathy with macular edema, unspecified eye; E11.65 - Type 2 diabetes mellitus with hyperglycemia (4) Diabetes mellitus: Code(s): E11.9 - Type 2 diabetes mellitus without complications Qualifiers: Diabetes mellitus complication detail: with diabetic retinopathy Diabetes mellitus complication status: with ophthalmic complications Diabetes mellitus windows migration technician insulin use: with windows migration technician use Diabetes mellitus macular edema: with macular edema Diabetes mellitus type: type 2 Diabetic retinopathy severity: with mild nonproliferative retinopathy Laterality: unspecified laterality Qualified Code(s): E11.3219 - Type 2 diabetes mellitus with mild nonproliferative diabetic retinopathy with macular edema, unspecified eye; Z79.4 - FPC (current) use of insulin Plan Patient is 57-year-old female came in today for Medicare wellness visit and for her regular follow-up Patient says that her insurance does not cover a lot of medications we talked about getting a supplemental insurance it is very important that patient is able to get the medication which we are prescribing as her sugar is uncontrolled. Last hemoglobin A1c was 10.6 on February 22 of this month which has improved from previous which was above 14 She has still not called endocrinology to book the appointment I have send them a message if they can see the patient urgently. I have sent Trulicity again for the patient if insurance does not cover I will try to get it approved. Medication list reviewed She says that the pharmacy never seen duloxetine which I have sent for her she would like to change the pharmacy this time to [facility] Trazodone sent as well and insulin sent as well she is currently taking 45 units of long-acting insulin at night but she is skipping the morning insulin of 30 units as she feels the morning sugar is running low I have told her to start checking her sugar 2 hours after eating breakfast Patient is to return in 3 months for follow-up appointment Orders: Orders AMB Random Glucose (hemocue) Today E11.3219 - Type 2 diabetes mellitus with mild nonproliferative diabetic retinopathy with macular edema, unspecified eye, E11.65 - Type 2 diabetes mellitus with hyperglycemia Referrals Endocrinology Referral E11.3219 - Type 2 diabetes mellitus with mild nonproliferative diabetic retinopathy with macular edema, unspecified eye, E11.65 - Type 2 diabetes mellitus with hyperglycemia, E11.9 - Type 2 diabetes mellitus without complications, Z79.4 - FPC (current) use of insulin Medications: New dulaglutide (Trulicity) 0.75 mg (0.5 mL) subcut QWEEK 30 days 2.5 mL 0RF dulaglutide (Trulicity) 0.75 mg (0.5 mL) subcut QWEEK 2.5 mL 0RF 30 days Changed From insulin glargine (Lantus Solostar U-100 Insulin) 45 units (0.45 mL) subcut DAILY 90 days 40.5 mL 3RF E11.9 - Type 2 diabetes mellitus without complications To insulin glargine (Lantus Solostar U-100 Insulin) take 45 u at night and 30 u in am 67.5 mL 3RF 90 days E11.9 - Type 2 diabetes mellitus without complications Refilled duloxetine 20 mg PO BID 180 caps 1RF 90 days M79.7 - Fibromyalgia trazodone 100 mg PO BEDTIME PRN 90 tabs 0RF insomnia 90 days Quality Reporting (2019) Depression/Bipolar (159/160/161/177) PHQ-9: Total score: 12 Coding Level of Care Code Medicare Subsequent (G0439) Est Pt Level 4 (99501) Diagnoses Uncontrolled diabetes mellitus 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 Z79.4 Type 2 diabetes, uncontrolled, with nonproliferative retinopathy with macular edema E11.3219; E11.65 Diabetes mellitus E11.3219; Z79.4 Diabetes mellitus complication detail: with diabetic retinopathy Diabetes mellitus complication status: with ophthalmic complications Diabetes mellitus windows migration technician insulin use: with [facility] use Diabetes mellitus macular edema: with macular edema Diabetes mellitus type: type 2 Diabetic retinopathy severity: with mild nonproliferative retinopathy Laterality: unspecified laterality CPT Codes Advance Care Planning - Time spent: 1-15 minutes, not on file ([id number]) Advance Care Planning Advance Care Planning discussion: Completed/Scanned Forms completed: MOLST Time spent: 1-15 minutes, not on file
[2023-02-23 10:50] VITALS: BP 122/76; PULSE 92; O2SAT 98; BMI 26.8
== END 2023-02-23 11:34 | disposition home or self-care (01) ==
PROVIDERS: Visit Provider Internal Medicine
DX: Z00.00 Encounter for general adult medical examination without abnormal findings (principal); Z79.4 Long term (current) use of insulin; E11.3219 Type 2 diabetes mellitus with mild nonproliferative diabetic retinopathy with macular edema, unspecified eye; E11.65 Type 2 diabetes mellitus with hyperglycemia
CPT/HCPCS: 1124F; 82948; G0439

== ENCOUNTER 2023-03-31 11:39 | Outpatient (AMB) | payer MEDICARE, SELFPAY ==
--- NOTE | 2023-03-31 11:43 | MHC.OFFVIS ---
Intake Vital Signs 03/31/23 11:44 Height 5 ft 3 in Weight 152 lb 12.485 oz BMI 27.1 BP 138/68 Blood Pressure Location Lt brachial Position Sitting Pulse 108 H Pulse Source Pulse Oximeter Temp 96.8 F Temp Source Skin Pulse Oximetry (%) 98 Oxygen Delivery Method Room Air Intake Visit Reasons: RA Intake Note: Here for RA follow up. c/o jeni hand pain and swelling. New onset of jeni feet swelling since this summer . 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 Accompanied by: Self / Same As Patient Allergies wasp bites Allergy (Intermediate, Uncoded 03/31/23 11:49) hives Medication List - Last Reconciled 03/31/23 by Robert Gonzalez MD atorvastatin 80 mg PO DAILY cholecalciferol (vitamin D3) (Vitamin D3) 25 mcg PO DAILY diclofenac sodium 1% (Voltaren Arthritis Pain) 2 grams topical BID dulaglutide (Trulicity) 0.75 mg (0.5 mL) subcut QWEEK 30 days duloxetine 20 mg PO BID 90 days epinephrine 0.3 mg IM Q4H PRN gabapentin 300 mg PO TID insulin glargine (Lantus Solostar U-100 Insulin) take 45 u at night and 30 u in am 90 days ketorolac 0.5% 1 drp ophthalmic (eye) QID lisinopril 5 mg PO DAILY 90 days pen needle, diabetic (BD Ultra-Fine Yessi Pen Needle) As directed once daily sulfasalazine 1,000 mg (2 x 500 mg) PO BID trazodone 100 mg PO BEDTIME PRN HPI HPI Comments History of Present Illness Details The patient returns for evaluation of her rheumatoid arthritis, fibromyalgia, and hepatitis B. At her last visit in December she seemed to be doing okay but she has since run out of the duloxetine. Apparently the cost to her local pharmacy has increased and she wants a prescription sent to a different pharmacy. She remains on gabapentin 300 mg 3 times a day, sulfasalazine 1 g b.i.d., p.r.n. diclofenac gel, and nighttime trazodone taking half of the 100 mg tablet. The full 100 mg trazodone seemed to cause her some diaphoresis and fatigue the next day. She does report that in the past 3 or 4 weeks she has had some increase in hand and foot swelling. This tends to come and go. She also gets back pain, right shoulder pain, and fatigue. At the last visit I had referred her for treatment for hepatitis B, or least an evaluation as to the need for treatment. She is hepatitis B surface antigen positive but has normal LFTs. The Gastroenterology Department said to send her to infectious disease but I do not think she has an appointment yet. 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 Myofascial pain Rheumatoid arthritis Shoulder pain Type 2 diabetes, uncontrolled, with nonproliferative retinopathy with macular edema Surgical History H/O left breast biopsy H/O oral surgery H/O: knee surgery History of hysterectomy Family History Father CVD (cardiovascular disease) HTN (hypertension) Diabetes Brother CVD (cardiovascular disease) Mother Liver cancer Son Asthma Paternal Aunt HTN (hypertension) Diabetes Social History (Updated 03/31/23 @ 11:49 by REHANA Betts) Household Members: Spouse Housing: House Alcohol intake: current Alcohol intake frequency: holidays/special occasions only Alcohol type: wine and hard liquor Patient Tobacco Use Status: Never used Tobacco e-Cigarette/Vaping Use: Never Used Current occupational status: disabled Cognitive needs: No Hearing needs: No Vision needs: Yes Review of Systems Const Details: Some days she is very fatigued, particularly if she is having a lot of pain. Negative for appetite change, weight change, fever, chills, malaise the Eyes Details: Negative for vision change, dry eyes,headaches and dizziness Card Details: Negative chest pain, edema and syncope Resp Details: Negative for SOB, cough and wheezing GI Details: Negative indigestion/heartburn, nausea, abdominal pain, bowel changes, diarrhea, constipation and bloody stool. Skin/Breast Details: Negative for itching, rash, hives, Raynaud's symptoms, sun sensitivity, and skin cancer Psych Details: Negative for anxiety, depression and stress Endo Details: Negative for polyuria and polydypsia Peter/Lymph Details: Negative for excessive bruising or bleeding. Physical Exam Vital Signs: Last Vital Signs Temp 96.8 F 03/31/23 11:44 Pulse 108 H 03/31/23 11:44 BP 138/68 03/31/23 11:44 Pulse Ox 98 03/31/23 11:44 Oxygen Delivery Method Room Air 03/31/23 11:44 BMI result Body Mass Index 27.1 APPEARANCE: Patient in no acute distress EYES no redness, pupils equal and reactive to light, eyelids normal ABD: Normal bowel sounds, no organomegaly, masses or tenderness. EXTREMITIES: No edema, no calf tenderness, normal peripheral pulses. NEURO: Oriented and alert x3. No focal weakness. Reflexes symmetric. Gait normal. SKIN: No inflammatory or neoplastic lesions. Normal color and turgor JOINT EXAM: ?? Cervical Spine:.? Mild pain with lateral flexion at 10 degrees of rotation to 30 degrees to either side.? There is slight left cervical muscle tenderness. Thoracic Spine:.? No scoliosis.? No tenderness on palpation. Lumbar Spine:.? Alignment normal.? Lumbar pain with flexion at 60 degrees.? Mild paraspinal muscle tenderness. Chest Wall:.? No tenderness, swelling, increased warmth or erythema. Hands:? Right joint mild thickening with minimal tenderness at the 1st 2 MCP joints.? There is nontender bony enlargement at the thumb IP.? Elsewhere no tenderness or swelling.? No thenar atrophy or sensory loss.? Left: Mild tenderness with some thickening at the 1st 3 MCP joints.? There is some minimal thickening at the thumb IP and 2nd 3rd PIP is without tenderness.? There is no soft tissue swelling or tenderness elsewhere.? No thenar atrophy or sensory loss. Wrists:? Normal range of motion with slight pain at 90 degrees flexion or extension.? There is slight tenderness but no swelling, increased warmth or erythema. Elbows:.? Right: Slight pain with full extension felt mostly over the lateral epicondyle.? There is mild tenderness over the lateral epicondyle but no tenderness or swelling over the joint space.? Left:Normal pain-free range of motion without tenderness, swelling, increased warmth or erythema. Shoulders:? Right:? Mild pain with abduction 100 degrees or with more than 10 degrees of internal or external rotation.? Pain is felt over the deltoid and top of the shoulder.? There is some bony prominence at the AC joint with some mild tenderness.? There is questionable abductor weakness but no supraclavicular or axillary adenopathy.? No swelling or redness.? Left:? Full range of motion without pain. No tenderness, weakness, swelling, increased warmth or erythema. Hips:.? Full range of motion with some lumbar pain with extremes of normal external rotation or abduction. No groin pain with motion. Hip bursa:.? Mild bilateral trochanteric tenderness. Knees:.??Right:? Mild pain with extremes of flexion extension with some mild medial tenderness but no swelling or effusion.? No redness or warmth.? Slight patellofemoral crepitus.? Left: ? pain-free range of motion with slight patellofemoral crepitus but no effusion, tenderness, swelling, increased warmth or erythema.? There is no effusion or crepitation Ankles:.? Normal pain-free range of motion without tenderness, swelling, increased warmth or erythema. Feet:.? Normal pain-free range of motion without tenderness, swelling, increased warmth or erythema. Tender points:.? Mild tenderness to digital palpation at the right occiput, bilateral trapezius, right second rib, bilateral lateral epicondyle, bilateral knees, greater trochanter area bilaterally. Results Reviewed Results Reviewed: Laboratory Tests 12/28/18 12/17/21 14:40 12:30 Hep Bs Antigen Rep Reactive Hep Bs Antibody NONREACTIVE Hep B Core Total Ab Reactive Hepatitis C Ab (EIA) NONREACTIVE Laboratory Tests 02/22/23 10:24 AST 27 ALT 24 Alkaline Phosphatase 96 Assessment & Plan Assessment & Plan (1) Seropositive rheumatoid arthritis: Comment: onset about 2009. hydroxychloroquine stopped due to diabetic retinoapathy. methotrexate stopped due to hep B viremia. on chronic sulfasalazine. Kevzara and Rinvoq not approved. Code(s): M05.9 - Rheumatoid arthritis with rheumatoid factor, unspecified (2) shelter use of drug: Code(s): Z79.899 - Other watcher automat long goods (current) drug therapy (3) Chronic hepatitis B: Code(s): B18.1 - Chronic viral hepatitis B without delta-agent Plan Once again I do not see signs of active rheumatoid arthritis. She has a few tender joints but minimal if any swelling in the joints. There are many tender points. She also has significant pain with range of motion of the right shoulder and lumbar spine which suggest more likely some osteoarthritis. The many tender points are consistent with her fibromyalgia. I think they are probably worse because she did run out of the duloxetine. I will send the prescription to her pharmacy she identifies that she believes will be less expensive. She will also get refills on the trazodone but I have given her the 50 mg tablet to take 1 or 1 and a half at night. She is encouraged to continue with light aerobic activity. We will check LFTs and acute phase reactants today. I did issue another referral to Infectious Disease to give us an opinion on her hepatitis B carrier status. Follow-up in 6 months is reasonable. Orders: Orders Complete Blood Count Auto Diff Today M05.9 - Rheumatoid arthritis with rheumatoid factor, unspecified, Z79.899 - Other alf (current) drug therapy Comprehensive Met. Panel Today M05.9 - Rheumatoid arthritis with rheumatoid factor, unspecified, Z79.899 - Other alf (current) drug therapy C Reactive Protein Today M05.9 - Rheumatoid arthritis with rheumatoid factor, unspecified, Z79.899 - Other alf (current) drug therapy Erythrocyte Sedimentation Rate Today M05.9 - Rheumatoid arthritis with rheumatoid factor, unspecified, Z79.899 - Other alf (current) drug therapy Referrals Infectious Disease Referral B18.1 - Chronic viral hepatitis B without delta-agent Medications: New trazodone 75 mg (1.5 x 50 mg) PO BEDTIME PRN 45 tabs 4RF sleep Changed From trazodone 100 mg PO BEDTIME 90 days PRN 90 tabs 0RF insomnia To trazodone 100 mg PO BEDTIME PRN Refilled duloxetine 20 mg PO BID 180 caps 1RF 90 days M79.7 - Fibromyalgia sulfasalazine 1,000 mg (2 x 500 mg) PO BID 360 tabs 2RF M05.9 - Rheumatoid arthritis with rheumatoid factor, unspecified Coding Level of Care Code Est Pt Level 3 (82352) Diagnoses Seropositive rheumatoid arthritis M05.9 shelter use of drug Z79.899 Chronic hepatitis B B18.1
[2023-03-31 11:44] VITALS: BP 138/68; PULSE 108; TEMP 36; O2SAT 98; BMI 27.1
== END 2023-03-31 12:26 | disposition home or self-care (01) ==
PROVIDERS: PCP Internal Medicine; Visit Provider Internal Medicine Rheumatology
DX: M05.79 Rheumatoid arthritis with rheumatoid factor of multiple sites without organ or systems involvement (principal); Z79.899 Other long term (current) drug therapy; B18.1 Chronic viral hepatitis B without delta-agent
CPT/HCPCS: 99214

== ENCOUNTER 2023-03-31 11:39 | Outpatient (REF) | payer MEDICARE, OTHER, SELFPAY ==
[2023-03-31 12:46] LABS: MANUAL DIFF FLAG NO
[2023-03-31 13:40] LABS: Basophils Absolute Auto 0.1 X10*3/uL (0.0-0.2); Basophils Percent Auto 0.7 % (0-2); Eosinophils Absolute Auto 0.2 X10*3/uL (0.0-0.4); Eosinophils Percent Auto 2.8 % (0-4); Hematocrit 40.4 % (37.0-47.0); Imm Gran Abs Auto 0.02 X10*3/uL (0.00-0.03); Imm Gran Pct Auto 0.2 % (0.0-0.4); Lymphocytes Absolute Auto 2.3 X10*3/uL (1.2-4.9); Lymphocytes Percent Auto 27.6 % (20-40); Mean Corpuscular HGB Conc 32.2 g/dl (31.0-35.0); Mean Corpuscular Hemoglobin 27.4 pg (27.0-33.0); Mean Corpuscular Volume 85.2 fL (80.0-98.0); Mean Platelet Volume 10.1 fL (9.4-12.3); Monocytes Absolute Auto 0.5 X10*3/uL (0.1-1.2); Monocytes Percent Auto 5.8 % (2-11); Neutrophils Absolute Auto 5.3 x10*3/uL (2.0-8.3); Neutrophils Percent Auto 62.9 % (45-73); Platelet Count 266 X10*3/uL (160-400); Red Blood Count 4.74 X10*6/uL (4.20-5.50); Red Cell Distribution Width 13.7 % (11.0-16.0); White Blood Count 8.4 X10*3/uL (4.8-10.8)
[2023-03-31 14:18] LABS: Erythrocyte Sedimentation Rate 31 MM/HR (0-20)
[2023-03-31 14:23] LABS: Alanine Aminotransferase 19 U/L (0-31); Albumin Level 3.8 g/dL (3.5-5.0); Alkaline Phosphatase 102 U/L (39-117); Anion Gap 10 (12-20); Aspartate Amino Transferase 19 U/L (5-31); Bilirubin Total 0.3 mg/dL (0.0-1.0); Blood Urea Nitrogen 10 mg/dL (9-16); C Reactive Protein 0.29 mg/dL (< or = 0.50); Calcium 9.7 mg/dL (8.4-10.2); Carbon Dioxide 29 mmol/L (22-29); Chloride 105 mmol/L (96-108); Estimated Glomerular Filt Rate > 60; Glucose Random 271 mg/dL (60-115); Potassium 3.6 mmol/L (3.3-5.1); Sodium 140 mmol/L (135-145); Total Protein 7.4 g/dL (6.5-8.0)
== END 2023-03-31 11:40 | disposition home or self-care (01) ==
LOC: HO.LAB 11:39
PROVIDERS: PCP Internal Medicine; Visit Provider Internal Medicine Rheumatology
DX: M05.9 Rheumatoid arthritis with rheumatoid factor, unspecified (principal); B18.1 Chronic viral hepatitis B without delta-agent; Z79.899 Other long term (current) drug therapy
CPT/HCPCS: 36415; 80053; 85025; 85652; 86140

== ENCOUNTER 2023-04-19 13:12 | Outpatient (REF) | payer MEDICARE, OTHER, SELFPAY ==
[2023-04-19 14:22] LABS: MANUAL DIFF FLAG NO
[2023-04-19 14:32] LABS: Basophils Percent Auto 0.3 % (0-2); Eosinophils Absolute Auto 0.2 X10*3/uL (0.0-0.4); Eosinophils Percent Auto 2.6 % (0-4); Hematocrit 39.1 % (37.0-47.0); Hemoglobin 12.7 g/dl (12.0-16.0); Imm Gran Abs Auto 0.02 X10*3/uL (0.00-0.03); Imm Gran Pct Auto 0.2 % (0.0-0.4); Lymphocytes Absolute Auto 2.7 X10*3/uL (1.2-4.9); Lymphocytes Percent Auto 30.9 % (20-40); Mean Corpuscular HGB Conc 32.5 g/dl (31.0-35.0); Mean Corpuscular Hemoglobin 27.7 pg (27.0-33.0); Mean Corpuscular Volume 85.4 fL (80.0-98.0); Mean Platelet Volume 10.2 fL (9.4-12.3); Monocytes Absolute Auto 0.5 X10*3/uL (0.1-1.2); Monocytes Percent Auto 5.5 % (2-11); Neutrophils Absolute Auto 5.2 x10*3/uL (2.0-8.3); Neutrophils Percent Auto 60.5 % (45-73); Platelet Count 257 X10*3/uL (160-400); Red Blood Count 4.58 X10*6/uL (4.20-5.50); Red Cell Distribution Width 13.7 % (11.0-16.0); White Blood Count 8.6 X10*3/uL (4.8-10.8)
[2023-04-19 14:40] LABS: Prothrombin Time 12.1 SEC (11.1-13.3)
[2023-04-19 14:55] LABS: Appearance Urine Clear; Color Urine Yellow; Glucose Urine UA >=1000 mg/dL (Negative); Leukocyte Esterase Urine Negative (Negative); Nitrite Urine Negative (Negative); PH 6.5 (5.0-9.0); UMIC TRIGGER UA YES; Urine Blood Negative (Negative); Urine Ketones Negative (Negative); Urine Protein Negative (Neg-Trace)
[2023-04-19 15:01] LABS: Bacteria Urine None Seen (None Seen); Hyaline Casts Urine 0-2 /LPF (0-2); RBC Urine 0-2 /HPF (0-2); Squamous Epithelial Cell Urine 0-2 /HPF (0-2); WBC Urine 0-5 /HPF (0-5)
[2023-04-19 15:17] LABS: Alanine Aminotransferase 16 U/L (0-31); Albumin Level 3.8 g/dL (3.5-5.0); Alkaline Phosphatase 92 U/L (39-117); Anion Gap 12 (12-20); Aspartate Amino Transferase 20 U/L (5-31); Bilirubin Direct 0.1 mg/dL (0.0-0.5); Bilirubin Total 0.3 mg/dL (0.0-1.0); Blood Urea Nitrogen 8 mg/dL (9-16); Calcium 9.5 mg/dL (8.4-10.2); Carbon Dioxide 26 mmol/L (22-29); Chloride 106 mmol/L (96-108); Estimated Glomerular Filt Rate > 60; Glucose Random 327 mg/dL (60-115); Phosphorus 3.1 mg/dL (2.7-4.5); Potassium 4.5 mmol/L (3.3-5.1); Sodium 139 mmol/L (135-145); Total Protein 7.1 g/dL (6.5-8.0)
[2023-04-19 15:29] LABS: Phosphorus Urine Random 27.6 mg/dL
[2023-04-20 03:58] LABS: HIV AB/AG Nonreactive (Nonreactive); HIV Num 1 0.07 S/CO (0.00-0.99); ~HepC Num1 0.07 S/CO (0.00-0.79); ~Hepatitis C Antibody Nonreactive (Nonreactive)
[2023-04-21 14:28] LABS: Hepatitis B Viral DNA Qn - cp NOT DETECTED Log IU/mL (NOT DETECTED); Hepatitis B Viral DNA Qn-IU/mL NOT DETECTED (NOT DETECTED)
[2023-04-23 16:28] LABS: FIB-ALT 15 U/L (6-29); FIB-Alpha-2-Macroglobulin 328 mg/dL (106-279); FIB-Apolipoprotein A1 149 mg/dL (101-198); FIB-GGT 10 U/L (3-70); FIB-Haptoglobin 171 mg/dL (43-212); FIB-Total Bilirubin 0.3 mg/dL (0.2-1.2); Liver Fibrosis Stage F0; Nec Inflam Act Grade A0; Nec Inflam Act Score 0.04
[2023-04-24 20:22] LABS: Hepatitis Delta Antibody NEGATIVE
== END 2023-04-19 13:13 | disposition home or self-care (01) ==
LOC: HO.LAB 13:12
PROVIDERS: PCP Internal Medicine; Visit Provider Internal Medicine
DX: Z11.4 Encounter for screening for human immunodeficiency virus [HIV] (principal); B18.1 Chronic viral hepatitis B without delta-agent; R35.0 Frequency of micturition; M05.9 Rheumatoid arthritis with rheumatoid factor, unspecified
CPT/HCPCS: 36415; 80048; 80076; 81001; 81596; 84100; 84105; 85025; 85610; 86692; 86803; 87389; 87517; 99202

== ENCOUNTER 2023-04-19 13:12 | Outpatient (AMB) | payer MEDICARE, SELFPAY ==
--- NOTE | 2023-04-19 13:04 | A.OFFVIS_ITS ---
Intake Vital Signs 04/19/23 13:25 Height 5 ft 3 in Weight 155 lb BMI 27.5 BP 140/80 H Blood Pressure Location Lt brachial Position Sitting Pulse 105 H Pulse Source Pulse Oximeter Pulse Oximetry (%) 98 Intake Visit Reasons: Ref.,Chronic Hep-B Allergies wasp bites Allergy (Intermediate, Uncoded 03/31/23 11:49) hives HPI Ref.,Chronic Hep-B HPI Details She is here for Hepatitis B evaluation. She has had viral load of 959 2019 and LFTs not very elevated. She has had negative Hepatitis C and HIV at that time. She has RA and sees Rheumatology ,but hasnt had biologic DMARDs T spot unremarkable. 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 Myofascial pain Type 2 diabetes, uncontrolled, with nonproliferative retinopathy with macular edema Hypovitaminosis D Hepatitis B Depression Anxiety Fibromyalgia Rheumatoid arthritis Hyperlipidemia Hypertension Diabetes mellitus Surgical History H/O left breast biopsy H/O: knee surgery H/O oral surgery History of hysterectomy Family History Father CVD (cardiovascular disease) HTN (hypertension) Diabetes Brother CVD (cardiovascular disease) Mother Liver cancer Son Asthma Paternal Aunt HTN (hypertension) Diabetes Social History Household Members: Spouse Housing: House Alcohol intake: current Alcohol intake frequency: holidays/special occasions only Alcohol type: wine and hard liquor Patient Tobacco Use Status: Never used Tobacco e-Cigarette/Vaping Use: Never Used Current occupational status: disabled Cognitive needs: No Hearing needs: No Vision needs: Yes Review of Systems Const unobtainable due to endotracheal tube Physical Exam Vital Signs: Last Vital Signs Pulse 105 H 04/19/23 13:25 BP 140/80 H 04/19/23 13:25 Pulse Ox 98 04/19/23 13:25 BMI result Body Mass Index 27.5 Const General: cooperative Orientation/consciousness: patient oriented x3 HEENT Head: Yes normal to inspection Mouth: Normal oral and palatal mucosa present Eyes General: appearance normal, both eyes and all related structures Pupils: Equal, round and reactive pupils present Resp Effort & Inspection: normal respiratory effort Cardio Rate: regular rate Rhythm: regular rhythm GI Palpation (GI): Soft to palpation and nontender General: Yes no CVA tenderness Back/Spine/Pelvis Back: no CVA tenderness Skin General skin exam: no rashes or lesions noted Neuro General: patient oriented x3 Cranial nerves: Yes CN's II-XII intact bilaterally and Yes Equal, round and reactive pupils present Extrem General: Yes normal to inspection Psych Appearance: grossly normal Assessment & Plan Assessment & Plan (1) Chronic hepatitis B: Comment: She needs eval liver status with u/s evaluate hepatoma as well as Hepatitis B viral load and Becca score evaluate any cirrhosis She should check Hepatitis D look for coinfection as well as recheck HIV and Hepatitis C since it has been checked 2019. Probable tenofovir alafenamide or tenofovir disoproxil fumarate if elevated viral load or in need of biologic DMARDs particularly. See again in six months. Check bone density if tenofovir disoproxil fumarate chosen since may cause low bone density. She will call us if not heard about blood work/u/s within two weeks. Code(s): B18.1 - Chronic viral hepatitis B without delta-agent (2) Seropositive rheumatoid arthritis: Comment: onset about 2009. hydroxychloroquine stopped due to diabetic retinoapathy. methotrexate stopped due to hep B viremia. on chronic sulfasalazine. Kevzara and Rinvoq not approved. Code(s): M05.9 - Rheumatoid arthritis with rheumatoid factor, unspecified Orders: Orders Liver Panel 04/19/23 B18.1 - Chronic viral hepatitis B without delta-agent HIV Ab/Ag 04/19/23 B18.1 - Chronic viral hepatitis B without delta-agent Phosphorus 04/19/23 B18.1 - Chronic viral hepatitis B without delta-agent US abdomen complete 04/19/23 B18.1 - Chronic viral hepatitis B without delta- agent Hepatitis C Antibody 04/19/23 B18.1 - Chronic viral hepatitis B without delta- agent Complete Blood Count Auto Diff 04/19/23 B18.1 - Chronic viral hepatitis B without delta-agent Prothrombin Time INR 04/19/23 B18.1 - Chronic viral hepatitis B without delta- agent Basic Metabolic Panel 04/19/23 B18.1 - Chronic viral hepatitis B without delta- agent Liver Fibrosis Pnl 04/19/23 B18.1 - Chronic viral hepatitis B without delta- agent Hepatitis Delta Antibody 04/19/23 B18.1 - Chronic viral hepatitis B without delta-agent Phosphorus Urine Random 04/19/23 B18.1 - Chronic viral hepatitis B without delta-agent UA w Microscopic 04/19/23 R35.0 - Frequency of micturition Hepatitis B Viral DNA Qn 04/19/23 B18.1 - Chronic viral hepatitis B without delta-agent Coding Level of Care Code New Pt Level 4 (55213) Diagnoses Chronic hepatitis B B18.1 Seropositive rheumatoid arthritis M05.9
[2023-04-19 13:25] VITALS: BP 140/80; PULSE 105; O2SAT 98; BMI 27.5
== END 2023-04-19 14:19 | disposition home or self-care (01) ==
LOC: HO.HID 13:12
PROVIDERS: PCP Internal Medicine; Visit Provider Internal Medicine
DX: B18.1 Chronic viral hepatitis B without delta-agent (principal); M05.9 Rheumatoid arthritis with rheumatoid factor, unspecified
CPT/HCPCS: 99204

== ENCOUNTER 2023-04-26 08:58 | Outpatient (REF) | payer MEDICARE, OTHER, SELFPAY ==
--- NOTE | ~2023-04-26 | US_ITS ---
EXAMINATION: US ABDOMEN COMPLETE CLINICAL INFORMATION: Chronic viral hepatitis B without delta-agent. COMPARISON: US abdomen complete with liver elastography 12/01/2017. TECHNIQUE: Real-time imaging of the abdominal viscera. FINDINGS: PANCREAS: Normal head and body, the tail is obscured by bowel gas. ABDOMINAL AORTA: The proximal, mid, and distal segments are normal in caliber. Atherosclerotic plaque is seen within the abdominal aorta. INFERIOR VENA CAVA: Visualized portions are normal. LIVER: The liver is normal in size. The liver contour is normal. There is diffuse increased liver parenchymal echogenicity, consistent with hepatic steatosis. No focal hepatic lesion. There is no intrahepatic biliary duct dilatation seen. GALLBLADDER: The gallbladder is physiologically distended. Multiple mobile gallstones are present. No evidence of gallbladder wall thickening or pericholecystic fluid. COMMON BILE DUCT: Normal in caliber measuring 0.5 cm in diameter. RIGHT KIDNEY: Normal. No hydronephrosis. No renal calculi or focal parenchymal lesions. The kidney measures 11.6 cm in maximum dimension. LEFT KIDNEY: Normal. No hydronephrosis. No renal calculi or focal parenchymal lesions. The kidney measures 11.4 cm in maximum dimension. SPLEEN: Normal. The spleen measures 9.2 cm in maximum dimension. FREE FLUID: None. US/US abdomen complete IMPRESSION: 1. Hepatic steatosis. 2. Cholelithiasis.
== END 2023-04-26 08:59 | disposition home or self-care (01) ==
LOC: HO.US 08:58
PROVIDERS: PCP Internal Medicine; Visit Provider Internal Medicine
DX: B18.1 Chronic viral hepatitis B without delta-agent (principal)
CPT/HCPCS: 76700

== ENCOUNTER 2023-05-25 12:00 | Outpatient (AMB) | payer MEDICARE, SELFPAY ==
[2023-05-25 12:05] VITALS: BP 126/68; PULSE 93; O2SAT 97; BMI 27.5
--- NOTE | 2023-05-25 12:05 | A.OFFPC_ITS ---
Vital Signs 05/25/23 12:05 Height 5 ft 3 in Weight 155 lb BMI 27.5 BP 126/68 Blood Pressure Location Rt brachial Position Sitting Pulse 93 Pulse Source Pulse Oximeter Pulse Oximetry (%) 97 Oxygen Delivery Method Room Air Intake Visit Reasons: 3 Month follow up Allergies wasp bites Allergy (Intermediate, Uncoded 03/31/23 11:49) hives Medication List - Last Reconciled 05/25/23 by Vadim Sal MD atorvastatin 80 mg PO DAILY cholecalciferol (vitamin D3) (Vitamin D3) 25 mcg PO DAILY diclofenac sodium 1% (Voltaren Arthritis Pain) 2 grams topical BID duloxetine 20 mg PO BID 90 days epinephrine 0.3 mg IM Q4H PRN gabapentin 300 mg PO TID insulin glargine (Lantus Solostar U-100 Insulin) take 45 u at night and 30 u in am 90 days ketorolac 0.5% 1 drp ophthalmic (eye) QID lisinopril 5 mg PO DAILY 90 days pen needle, diabetic (BD Ultra-Fine Yessi Pen Needle) As directed once daily sulfasalazine 1,000 mg (2 x 500 mg) PO BID trazodone 75 mg (1.5 x 50 mg) PO BEDTIME PRN Tobacco use date assessed: 05/25/23 Dental Screening Dental Screen Date: 05/25/23 Did you have a dental visit in the last 12 months?: No Did you have a dental problem in the last 6 months where you did not have access to dental care?: No Was dental information given to patient?: Patient has dentist HPI 3 Month follow up HPI Details Patient is a 57-year-old female came in today for her regular 3 month follow-up appointment Patient is now seeing endocrinology [place], and is currently on Lantus 30 units Her fasting sugars are all over the places ranging from 66-210 We talked about diabetic diet it is important that she stay consistent with what she is eating. She does not know when her upcoming appointment is with endocrinology. Labs were done April of this year reviewed again Patient has arthritis and is taking duloxetine 20 mg b.i.d. she is seeing rheumatology [facility] She is also on gabapentin 300 t.i.d., both medications are through rheumatology office as well as duloxetine and trazodone Hypertension: taking lisinopril 5 mg , blood pressure controlled Atorvastatin 80 mg for lipid control Labs are needed before visit Follow-up 3 months [facility] Medical History Shoulder pain [facility] use of drug Myofascial pain Type 2 diabetes, uncontrolled, with nonproliferative retinopathy with macular edema Hypovitaminosis D Hepatitis B Depression Anxiety Fibromyalgia Rheumatoid arthritis Hyperlipidemia Hypertension Diabetes mellitus Surgical History H/O left breast biopsy H/O: knee surgery H/O oral surgery History of hysterectomy Family History Father CVD (cardiovascular disease) HTN (hypertension) Diabetes Brother CVD (cardiovascular disease) Mother Liver cancer Son Asthma Paternal Aunt HTN (hypertension) Diabetes Social History Household Members: Spouse Housing: House Alcohol intake: current Alcohol intake frequency: holidays/special occasions only Alcohol type: wine and hard liquor Patient Tobacco Use Status: Never used Tobacco e-Cigarette/Vaping Use: Never Used Current occupational status: disabled Cognitive needs: No Hearing needs: No Vision needs: Yes Questionnaire PHQ-9 Over the last 2 weeks, how often have you been bothered by any of the following problems? 1. Little interest or pleasure in doing things: more than half the days 2. Feeling down, depressed, or hopeless: more than half the days 3. Trouble falling or staying asleep, or sleeping too much: nearly every day 4. Feeling tired or having little energy: more than half the days 5. Poor appetite or overeating: several days 6. Feeling bad about yourself - or that you are a failure or have let yourself or your family down: several days 7. Trouble concentrating on things, such as reading the newspaper or watching television: several days 8. Moving or speaking so slowly that other people could have noticed. Or the opposite - being so fidgety or restless that you have been moving around a lot more than usual: more than half the days 9. Thoughts that you would be better off or of hurting yourself in some way: several days Total score: 15 Depression Screening Interpretation: Positive Depression Screening Follow-up: Existing condition and In treatment Depression Screening Done: Yes 86339 - PHQ-9 Billing: Yes Source: Developed by Drs. Darell Mina, Marjan Connolly, Sascha Thompson and colleagues, with an educational jameel from [employer]. Thrive Questionnaire Date Thrive assessed: 11/11/22 LIZZY-7 AMB Questionnaire LIZZY-7 Date LIZZY - 7 assessed: 11/11/22 Source: Developed by Drs. Darell Mina, Marjan Connolly, Sascha Thompson and colleagues, with an educational jameel from [employer]. Review of Systems Const Denies chills and Denies fever(s) ENT Denies epistaxis and Denies nasal discharge Card Denies chest pain Resp Denies chest congestion, Denies cough and Denies hemoptysis GI Denies diarrhea and Denies nausea Skin/Breast Denies rash Neuro Reports no additional complaints Psych Reports no additional complaints Endo Reports no additional complaints Physical exam (Primary Care) Vital Signs: Last Vital Signs Pulse 93 05/25/23 12:05 BP 126/68 05/25/23 12:05 Pulse Ox 97 05/25/23 12:05 Oxygen Delivery Method Room Air 05/25/23 12:05 BMI result Body Mass Index 27.5 Tobacco/Smoking Status: Tobacco use Status Tobacco use date assessed 05/25/23 05/25/23 12:10 Patient Tobacco Use Status Never used Tobacco 05/25/23 12:10 e-Cigarette/Vaping Use Never Used 05/25/23 12:10 PHQ-9: PHQ-9 Score PHQ-9: Total score 15 05/25/23 12:32 Depression Screening Interpretation: Positive Depression Screening Follow-up: Existing condition and In treatment Thrive Assessment: Date of Thrive Assessment Date Thrive assessed 11/11/22 05/25/23 12:10 Const General: cooperative, comfortable and no acute distress Orientation/consciousness: patient oriented x3 HENMT Head: Yes normocephalic Eyes General: appearance normal, both eyes and all related structures Neck Neck: Yes supple Resp Effort & Inspection: normal respiratory effort, no cough and no stridor Cardio Rhythm: regular rhythm Heart sounds: S1 normal heart sound present and S2 normal heart sound present Skin General skin exam: turgor normal Neuro General: patient oriented x3, tone normal and moves all extremities Extrem Right lower extremity: no edema Left lower extremity: no edema Office Procedures Flu Questionnaire Does the patient have a severe egg allergy?: No Does the patient have severe life threatening allergies?: No Does the patient have a fever or illness today?: No Has the patient ever had Guillain-[place] Syndrome?: No Has the patient ever had any past reaction to a flu shot?: No Immunizations flu vacc [id number] 6mos up(PF) 60 mcg(15 mcgx4)/0.5 mL IM syringe Performing Provider: Vadim Sal MD [place] [facility] Administered by: Kelley Hutchison RN on 05/25/23 12:15 Dose Route Admin Location Dispensed Lot Number Expiration Date NDC Trust Manager 0.5 mL IM Right Deltoid 0.5 mL [id number] 02/06/24 [id number] apartum VIS Given Date VIS Provided VIS Publication Date 05/25/23 Single Vaccine 21 Eligibility Eligibility Date Funding Source Not [facility] Eligible 05/25/23 Private Assessment and Plan Assessment & Plan (1) Hypertension: Code(s): I10 - Essential (primary) hypertension Qualifiers: Hypertension type: essential hypertension Qualified Code(s): I10 - Essential (primary) hypertension (2) Hyperlipidemia: Code(s): E78.5 - Hyperlipidemia, unspecified Qualifiers: Hyperlipidemia type: pure hypercholesterolemia Qualified Code(s): E78.00 - Pure hypercholesterolemia, unspecified (3) Type 2 diabetes, uncontrolled, with nonproliferative retinopathy with macular edema: Code(s): E11.3219 - Type 2 diabetes mellitus with mild nonproliferative diabetic retinopathy with macular edema, unspecified eye; E11.65 - Type 2 diabetes mellitus with hyperglycemia (4) Fibromyalgia: Code(s): M79.7 - Fibromyalgia (5) Chronic pain syndrome: Code(s): G89.4 - Chronic pain syndrome (6) Chronic hepatitis B: Code(s): B18.1 - Chronic viral hepatitis B without delta-agent (7) Seropositive rheumatoid arthritis: Comment: onset about 2009. hydroxychloroquine stopped due to diabetic retinoapathy. methotrexate stopped due to hep B viremia. on chronic sulfasalazine. Kevzara and Rinvoq not approved. Code(s): M05.9 - Rheumatoid arthritis with rheumatoid factor, unspecified (8) Anxiety, generalized: Code(s): F41.1 - Generalized anxiety disorder Plan Patient is a 57-year-old female came in today for her regular 3 month follow-up appointment Patient is now seeing endocrinology [place], and is currently on Lantus 30 units Her fasting sugars are all over the places ranging from 66-210 We talked about diabetic diet it is important that she stay consistent with what she is eating. She does not know when her upcoming appointment is with endocrinology. Labs were done April of this year reviewed again Patient has arthritis and is taking duloxetine 20 mg b.i.d. she is seeing rheumatology [facility] She is also on gabapentin 300 t.i.d., both medications are through rheumatology office as well as duloxetine and trazodone Hypertension: taking lisinopril 5 mg , blood pressure controlled Atorvastatin 80 mg for lipid control Labs are needed before visit Follow-up 3 months Orders: Orders Influenza [id number] Immunization Today Z23 - Encounter for immunization Complete Blood Count Auto Diff Today B18.1 - Chronic viral hepatitis B without delta-agent, E11.3219 - Type 2 diabetes mellitus with mild nonproliferative diabetic retinopathy with macular edema, unspecified eye, E11.65 - Type 2 diabetes mellitus with hyperglycemia, E78.5 - Hyperlipidemia, unspecified, G89.4 - Chronic pain syndrome, I10 - Essential (primary) hypertension, M05.9 - Rheumatoid arthritis with rheumatoid factor, unspecified, M79.7 - Fibromyalgia Comprehensive [place]. Panel Fast Today B18.1 - Chronic viral hepatitis B without delta-agent, E11.3219 - Type 2 diabetes mellitus with mild nonproliferative diabetic retinopathy with macular edema, unspecified eye, E11.65 - Type 2 diabetes mellitus with hyperglycemia, E78.5 - Hyperlipidemia, unspecified, G89.4 - Chronic pain syndrome, I10 - Essential (primary) hypertension, M05.9 - Rheumatoid arthritis with rheumatoid factor, unspecified, M79.7 - Fibromyalgia Lipid Panel Today B18.1 - Chronic viral hepatitis B without delta-agent, E11.3219 - Type 2 diabetes mellitus with mild nonproliferative diabetic retinopathy with macular edema, unspecified eye, E11.65 - Type 2 diabetes mellitus with hyperglycemia, E78.5 - Hyperlipidemia, unspecified, G89.4 - Chronic pain syndrome, I10 - Essential (primary) hypertension, M05.9 - Rheumatoid arthritis with rheumatoid factor, unspecified, M79.7 - Fibromyalgia Hemoglobin A1c Today B18.1 - Chronic viral hepatitis B without delta-agent, E11.3219 - Type 2 diabetes mellitus with mild nonproliferative diabetic retinopathy with macular edema, unspecified eye, E11.65 - Type 2 diabetes mellitus with hyperglycemia, E78.5 - Hyperlipidemia, unspecified, G89.4 - Chronic pain syndrome, I10 - Essential (primary) hypertension, M05.9 - Rheumatoid arthritis with rheumatoid factor, unspecified, M79.7 - Fibromyalgia Microalbumin, Random (w Creat) Today B18.1 - Chronic viral hepatitis B without delta-agent, E11.3219 - Type 2 diabetes mellitus with mild nonproliferative diabetic retinopathy with macular edema, unspecified eye, E11.65 - Type 2 diabetes mellitus with hyperglycemia, E78.5 - Hyperlipidemia, unspecified, G89.4 - Chronic pain syndrome, I10 - Essential (primary) hypertension, M05.9 - Rheumatoid arthritis with rheumatoid factor, unspecified, M79.7 - Fibromyalgia Coding Level of Care Code Est Pt Level 4 (92818) Diagnoses Essential hypertension I10 Hypertension type: essential hypertension Pure hypercholesterolemia E78.00 Hyperlipidemia type: pure hypercholesterolemia Type 2 diabetes, uncontrolled, with nonproliferative retinopathy with macular edema E11.3219; E11.65 Fibromyalgia M79.7 Chronic pain syndrome G89.4 Chronic hepatitis B B18.1 Seropositive rheumatoid arthritis M05.9 Anxiety, generalized F41.1
== END 2023-05-25 12:35 | disposition home or self-care (01) ==
PROVIDERS: PCP Internal Medicine; Visit Provider Internal Medicine
DX: E11.3219 Type 2 diabetes mellitus with mild nonproliferative diabetic retinopathy with macular edema, unspecified eye (principal); E11.65 Type 2 diabetes mellitus with hyperglycemia; B18.1 Chronic viral hepatitis B without delta-agent; M05.9 Rheumatoid arthritis with rheumatoid factor, unspecified; Z23 Encounter for immunization; I10 Essential (primary) hypertension; E78.00 Pure hypercholesterolemia, unspecified; M79.7 Fibromyalgia; G89.4 Chronic pain syndrome; F41.1 Generalized anxiety disorder
CPT/HCPCS: 90471; 90686; 99214

== ENCOUNTER 2023-09-02 07:36 | Outpatient (AMB) | payer MEDICARE, SELFPAY ==
--- NOTE | 2023-09-02 08:35 | MHC.PC.OV ---
Vital Signs 09/02/23 08:36 Height 5 ft 3 in Intake Visit Reasons: F/u Missed Appt ~[phone] Allergies wasp bites Allergy (Intermediate, Uncoded 03/31/23 11:49) hives Medication List - Last Reconciled 09/02/23 by Vadim Sal MD atorvastatin 80 mg PO DAILY cholecalciferol (vitamin D3) (Vitamin D3) 25 mcg PO DAILY diclofenac sodium 1% (Voltaren Arthritis Pain) 2 grams topical BID duloxetine 20 mg PO BID 90 days epinephrine 0.3 mg IM Q4H PRN gabapentin 300 mg PO TID insulin glargine (Lantus Solostar U-100 Insulin) take 45 u at night and 30 u in am 90 days lisinopril 5 mg PO DAILY 90 days pen needle, diabetic (BD Ultra-Fine Yessi Pen Needle) As directed once daily sulfasalazine 1,000 mg (2 x 500 mg) PO BID trazodone 75 mg (1.5 x 50 mg) PO BEDTIME PRN Tobacco use date assessed: 09/02/23 Dental Screening Dental Screen Date: 09/02/23 Did you have a dental visit in the last 12 months?: No Did you have a dental problem in the last 6 months where you did not have access to dental care?: No Was dental information given to patient?: Patient has dentist HPI F/u Missed Appt ~[phone] HPI Details Patient is 58-year-old female this is a telemedicine video conference follow-up Patient is currently seeing endocrinology in [facility] for the management of her diabetes However sugars are still running high She is on long-acting insulin as well as normal locked 30 units 3 times a day Patient says that it is not controlling her sugars she is careful with her diet as well. Her insurance has stopped paying for Trulicity and sugars has gone up. We talked about getting a supplemental insurance to cover for prescription, currently she has Medicare which is not covering a lot of medications. She is also on lisinopril 5 mg for blood pressure and atorvastatin 80 mg Patient suffers from fibromyalgia as well she is seeing Rheumatology and taking few medications through them. Follow-up 4 months [facility] Medical History Shoulder pain [facility] use of drug Myofascial pain Type 2 diabetes, uncontrolled, with nonproliferative retinopathy with macular edema Hypovitaminosis D Hepatitis B Depression Anxiety Fibromyalgia Rheumatoid arthritis Hyperlipidemia Hypertension Diabetes mellitus Surgical History H/O left breast biopsy H/O: knee surgery H/O oral surgery History of hysterectomy Family History Father CVD (cardiovascular disease) HTN (hypertension) Diabetes Brother CVD (cardiovascular disease) Mother Liver cancer Son Asthma Paternal Aunt HTN (hypertension) Diabetes Social History Household Members: Spouse Housing: House Alcohol intake: current Alcohol intake frequency: holidays/special occasions only Alcohol type: wine and hard liquor Patient Tobacco Use Status: Never used Tobacco e-Cigarette/Vaping Use: Never Used Current occupational status: disabled Cognitive needs: No Hearing needs: No Vision needs: Yes Questionnaire Thrive Questionnaire Date Thrive assessed: 11/11/22 AUDIT C Alcohol Use Questionnaire (AUDIT-C) 1. How often do you have a drink containing alcohol?: Never 3. How often do you have six or more drinks on one occasion?: Never Total Score: 0 Score Reviewed/Action Taken: Yes LIZZY-7 AMB Questionnaire LIZZY-7 Date LIZZY - 7 assessed: 11/11/22 Source: Developed by Drs. Darell Mina, Marjan Connolly, Sascha Thompson and colleagues, with an educational jameel from [employer]. Review of Systems Const Denies chills and Denies fever(s) ENT Denies epistaxis and Denies nasal discharge Card Denies chest pain Resp Denies chest congestion, Denies cough and Denies hemoptysis GI Denies diarrhea and Denies nausea Skin/Breast Denies rash Neuro Reports no additional complaints Psych Reports no additional complaints Endo Reports no additional complaints Physical exam (Primary Care) Tobacco/Smoking Status: Tobacco use Status Tobacco use date assessed 09/02/23 09/02/23 08:36 Patient Tobacco Use Status Never used Tobacco 09/02/23 08:36 e-Cigarette/Vaping Use Never Used 09/02/23 08:36 Thrive Assessment: Date of Thrive Assessment Date Thrive assessed 11/11/22 09/02/23 08:36 Telehealth Telehealth Location of provider rendering services: practice address Location of patient: address on file Patient Identification confirmed using: Name, : Yes Telehealth method: video Patient verbally consented to treatment: Yes Patient verbally consented to billing insurance company: Yes Patient informed of any privacy concerns related to visit: Yes Assessment and Plan Assessment & Plan (1) Hypertension: Code(s): I10 - Essential (primary) hypertension Qualifiers: Hypertension type: essential hypertension Qualified Code(s): I10 - Essential (primary) hypertension (2) Hyperlipidemia: Code(s): E78.5 - Hyperlipidemia, unspecified Qualifiers: Hyperlipidemia type: pure hypercholesterolemia Qualified Code(s): E78.00 - Pure hypercholesterolemia, unspecified (3) Type 2 diabetes, uncontrolled, with nonproliferative retinopathy with macular edema: Code(s): E11.3219 - Type 2 diabetes mellitus with mild nonproliferative diabetic retinopathy with macular edema, unspecified eye; E11.65 - Type 2 diabetes mellitus with hyperglycemia (4) Fibromyalgia: Code(s): M79.7 - Fibromyalgia (5) Seropositive rheumatoid arthritis: Comment: onset about 2009. hydroxychloroquine stopped due to diabetic retinoapathy. methotrexate stopped due to hep B viremia. on chronic sulfasalazine. Kevzara and Rinvoq not approved. Code(s): M05.9 - Rheumatoid arthritis with rheumatoid factor, unspecified Plan Patient is 58-year-old female this is a telemedicine video conference follow-up Patient is currently seeing endocrinology in [place] message uses for the management of her diabetes However sugars are still running high She is on long-acting insulin as well as normal locked 30 units 3 times a day Patient says that it is not controlling her sugars she is careful with her diet as well. Her insurance has stopped paying for Trulicity and sugars has gone up. We talked about getting a supplemental insurance to cover for prescription, currently she has Medicare which is not covering a lot of medications. She is also on lisinopril 5 mg for blood pressure and atorvastatin 80 mg Patient suffers from fibromyalgia and rheumatoid arthritis ,she is seeing Rheumatology and taking few medications through them. Follow-up 4 months Coding Level of Care Code Tele Est Pt Level 3 (39951) Diagnoses Essential hypertension I10 Hypertension type: essential hypertension Pure hypercholesterolemia E78.00 Hyperlipidemia type: pure hypercholesterolemia Type 2 diabetes, uncontrolled, with nonproliferative retinopathy with macular edema E11.3219; E11.65 Fibromyalgia M79.7 Seropositive rheumatoid arthritis M05.9
== END 2023-09-02 11:52 | disposition home or self-care (01) ==
LOC: HO.HMGC 07:36
PROVIDERS: PCP Internal Medicine; Visit Provider Internal Medicine
DX: E11.3219 Type 2 diabetes mellitus with mild nonproliferative diabetic retinopathy with macular edema, unspecified eye (principal); E11.65 Type 2 diabetes mellitus with hyperglycemia; M05.9 Rheumatoid arthritis with rheumatoid factor, unspecified; I10 Essential (primary) hypertension; E78.00 Pure hypercholesterolemia, unspecified; M79.7 Fibromyalgia
CPT/HCPCS: 99213

== ENCOUNTER 2023-09-09 12:03 | Outpatient (REF) | payer MEDICARE, OTHER, SELFPAY ==
--- NOTE | ~2023-09-09 | MM_ITS ---
EXAMINATION: MM SCREENING DIGITAL BREAST TOMOSYNTHESIS, BILATERAL CLINICAL INFORMATION: Screening. Asymptomatic. COMPARISON: Mammography: This study is compared with prior exams dating back to 2018. TECHNIQUE: Digital breast tomosynthesis is performed in both the craniocaudal and mediolateral oblique views along with computer-aided detection (CAD). Synthesized 2D images are generated from the tomosynthesis. FINDINGS: There are scattered areas of fibroglandular density (ACR BI-RADS breast composition Category b). There are no significant masses, abnormal calcifications, or other abnormalities. There are 2 tissue markers in the superior aspect of the left breast from prior benign percutaneous biopsies. In the deep third of the upper outer quadrant of the left breast, there are grouped, coarse, benign calcifications within a small oval focal asymmetry. 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 There are bilateral benign calcifications. MM/MM tomosynthesis screening BI IMPRESSION: No mammographic evidence of malignancy. ASSESSMENT: BI-RADS BI-RADS 2 - Benign Findings RECOMMENDATION: Routine annual mammography screening. 1 year F/U This examination should not preclude the clinical evaluation of a suspicious palpable abnormality. This patient's information was entered into a reminder system with a target due date for their next mammogram.
== END 2023-09-09 12:04 | disposition home or self-care (01) ==
LOC: HO.MAMMO 12:03
PROVIDERS: PCP Internal Medicine; Visit Provider Internal Medicine
DX: Z12.31 Encounter for screening mammogram for malignant neoplasm of breast (principal)
CPT/HCPCS: 77063; 77067

== ENCOUNTER → 2023-09-09 12:15 | Outpatient (BNV) | payer MEDICARE, SELFPAY | PROVIDERS: PCP Internal Medicine; Visit Provider Radiology Diagnostic Radiology | DX: Z12.31 Encounter for screening mammogram for malignant neoplasm of breast (principal) | CPT/HCPCS: 77063; 77067 ==

== ENCOUNTER 2023-09-30 10:09 | Outpatient (AMB) | payer MEDICARE, SELFPAY ==
[2023-09-30 10:16] VITALS: BP 136/74; PULSE 93; TEMP 36.1; O2SAT 99; BMI 27.8
--- NOTE | 2023-09-30 10:16 | MHC.OFFVIS ---
Intake Vital Signs 09/30/23 10:16 Height 5 ft 3 in Weight 156 lb 15.506 oz BMI 27.8 BP 136/74 Blood Pressure Location Rt brachial Position Sitting Pulse 93 Pulse Source Pulse Oximeter Temp 97.0 F Temp Source Skin Pulse Oximetry (%) 99 Oxygen Delivery Method Room Air Intake Visit Reasons: RA Intake Note: Patient last seen by Dr Gonzalez on 03/31/23 presents today for follow up. Patient states she has the same pain in neck, shoulder, knees and hips. 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 Accompanied by: Self / Same As Patient Allergies wasp bites Allergy (Intermediate, Uncoded 09/30/23 10:21) hives Medication List - Last Reconciled 09/30/23 by Ronak Liz MD atorvastatin 80 mg PO DAILY cholecalciferol (vitamin D3) (Vitamin D3) 25 mcg PO DAILY diclofenac sodium 1% (Voltaren Arthritis Pain) 2 grams topical BID duloxetine 20 mg PO BID 90 days epinephrine 0.3 mg IM Q4H PRN gabapentin 300 mg PO TID insulin glargine (Lantus Solostar U-100 Insulin) take 45 u at night and 30 u in am 90 days lisinopril 5 mg PO DAILY 90 days pen needle, diabetic (BD Ultra-Fine Yessi Pen Needle) As directed once daily sulfasalazine 1,000 mg (2 x 500 mg) PO BID trazodone 75 mg (1.5 x 50 mg) PO BEDTIME PRN HPI HPI Comments History of Present Illness Details This is a 58-year-old female with seropositive RA who returns for follow-up. She was last seen by Dr. Gonzalez. This is her 1st visit with me. She is on sulfasalazine 1000 mg Twice daily. She states that her fingers are always swollen, it is worse in the morning and improves in about 1 hour. She continues to have right shoulder pain and limitation of movement. Bilateral knee pain, worse on the right, worse with walking and going up and down the stairs. Most recent history by Dr. Gonzalez 03/2023: The patient returns for evaluation of her rheumatoid arthritis, fibromyalgia, and hepatitis B. At her last visit in December she seemed to be doing okay but she has since run out of the duloxetine. Apparently the cost to her local pharmacy has increased and she wants a prescription sent to a different pharmacy. She remains on gabapentin 300 mg 3 times a day, sulfasalazine 1 g b.i.d., p.r.n. diclofenac gel, and nighttime trazodone taking half of the 100 mg tablet. The full 100 mg trazodone seemed to cause her some diaphoresis and fatigue the next day. She does report that in the past 3 or 4 weeks she has had some increase in hand and foot swelling. This tends to come and go. She also gets back pain, right shoulder pain, and fatigue. At the last visit I had referred her for treatment for hepatitis B, or least an evaluation as to the need for treatment. She is hepatitis B surface antigen positive but has normal LFTs. The Gastroenterology Department said to send her to infectious disease but I do not think she has an appointment yet. [facility] Medical History Shoulder pain nursing home use of drug Myofascial pain Type 2 diabetes, uncontrolled, with nonproliferative retinopathy with macular edema Hypovitaminosis D Hepatitis B Depression Anxiety Fibromyalgia Rheumatoid arthritis Hyperlipidemia Hypertension Diabetes mellitus Surgical History H/O left breast biopsy H/O: knee surgery H/O oral surgery History of hysterectomy Family History Father CVD (cardiovascular disease) HTN (hypertension) Diabetes Brother CVD (cardiovascular disease) Mother Liver cancer Son Asthma Paternal Aunt HTN (hypertension) Diabetes Social History Household Members: Spouse Housing: House Alcohol intake: current Alcohol intake frequency: holidays/special occasions only Alcohol type: wine and hard liquor Patient Tobacco Use Status: Never used Tobacco e-Cigarette/Vaping Use: Never Used Current occupational status: disabled Cognitive needs: No Hearing needs: No Vision needs: Yes Review of Systems Musc Reports arthralgias, Reports joint swelling, Reports limited range of motion and Reports stiffness Physical Exam Vital Signs: Last Vital Signs Temp 97.0 F 09/30/23 10:16 Pulse 93 09/30/23 10:16 BP 136/74 09/30/23 10:16 Pulse Ox 99 09/30/23 10:16 Oxygen Delivery Method Room Air 09/30/23 10:16 BMI result Body Mass Index 27.8 Const General: cooperative, healthy appearing and comfortable Nutritional Appearance: overweight Orientation/consciousness: patient oriented x3 Limitations: no limitations HEENT Head: Yes normocephalic and Yes atraumatic Mouth: moist mucous membranes Resp Effort & Inspection: normal respiratory effort and able to speak in complete sentences Auscultation: clear to auscultation bilaterally Cardio Rate: regular rate Rhythm: regular rhythm GI Palpation (GI): Soft to palpation and nontender Skin General skin exam: no rashes or lesions noted Neuro General: patient oriented x3 Extrem Other: Bilateral diffuse puffy fingers Bilateral wrist tenderness and pain with flexion and extension Left 2nd through 5th MCP tenderness Few tender PIP is bilaterally Mildly limited right shoulder abduction Positive empty can test and Speed's test on the right Bilateral knee crepitus without swelling, erythema or warmth Normal nailfold capillaroscopy Assessment & Plan Assessment & Plan (1) Seropositive rheumatoid arthritis: Comment: onset about 2009 ++RF -ve CCP hydroxychloroquine stopped due to diabetic retinoapathy. methotrexate stopped due to hep B viremia. on chronic sulfasalazine. Kevzara and Rinvoq not approved. Code(s): M05.9 - Rheumatoid arthritis with rheumatoid factor, unspecified Plan: This is a 58-year-old female with seropositive RA who returns for follow-up. This is her 1st visit with me. She is on sulfasalazine 1000 mg Twice daily. She continues to have few swollen and tender joints on exam. Increase sulfasalazine to 1500 mg Twice daily. 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 No Treatment was given. Is biologics are needed, will reach out to Infectious Disease Plan I spent 46 minutes reviewing patient's chart, evaluating patient, ordering diagnostic workup, counseling patient and documenting in the chart Orders: Orders Complete Blood Count Auto Diff 3 Months M05.9 - Rheumatoid arthritis with rheumatoid factor, unspecified, Z79.899 - Other intermodal dispatcher (current) drug therapy Erythrocyte Sedimentation Rate 3 Months M05.9 - Rheumatoid arthritis with rheumatoid factor, unspecified, Z79.899 - Other intermodal dispatcher (current) drug therapy Complete Blood Count Auto Diff Today M05.9 - Rheumatoid arthritis with rheumatoid factor, unspecified, Z79.899 - Other longterm (current) drug therapy C Reactive Protein Today M05.9 - Rheumatoid arthritis with rheumatoid factor, unspecified, Z79.899 - Other longterm (current) drug therapy Erythrocyte Sedimentation Rate Today M05.9 - Rheumatoid arthritis with rheumatoid factor, unspecified, Z79.899 - Other longterm (current) drug therapy T Spot TB 3 Months Z11.7 - Encounter for testing for latent tuberculosis infection Comprehensive Met. Panel 3 Months M05.9 - Rheumatoid arthritis with rheumatoid factor, unspecified, Z79.899 - Other intermodal dispatcher (current) drug therapy C Reactive Protein 3 Months M05.9 - Rheumatoid arthritis with rheumatoid factor, unspecified, Z79.899 - Other longterm (current) drug therapy Comprehensive Met. Panel Today M05.9 - Rheumatoid arthritis with rheumatoid factor, unspecified, Z79.899 - Other intermodal dispatcher (current) drug therapy Medications: Changed From sulfasalazine 1,000 mg (2 x 500 mg) PO BID 360 tabs 2RF M05.9 - Rheumatoid arthritis with rheumatoid factor, unspecified To sulfasalazine 1.5 grams (3 x 500 mg) PO BID 180 tabs 2RF M05.9 - Rheumatoid arthritis with rheumatoid factor, unspecified Coding Level of Care Code Est Pt Level 5 (51570) Diagnoses Seropositive rheumatoid arthritis M05.9 nursing home use of drug Z79.899 Chronic hepatitis B B18.1
== END 2023-09-30 11:01 | disposition home or self-care (01) ==
PROVIDERS: PCP Internal Medicine; Visit Provider Student in an Organized Health Care Education/Training Program
DX: M05.79 Rheumatoid arthritis with rheumatoid factor of multiple sites without organ or systems involvement (principal); Z79.899 Other long term (current) drug therapy; B18.1 Chronic viral hepatitis B without delta-agent
CPT/HCPCS: 99215

== ENCOUNTER → 2023-09-30 10:09 | Outpatient (BNVA) | payer MEDICARE, SELFPAY | PROVIDERS: PCP Internal Medicine; Visit Provider Student in an Organized Health Care Education/Training Program | DX: M05.9 Rheumatoid arthritis with rheumatoid factor, unspecified (principal); D18.1 Lymphangioma, any site; Z79.899 Other long term (current) drug therapy | CPT/HCPCS: 99212 ==

== ENCOUNTER 2023-11-22 11:35 | Outpatient (REF) | payer MEDICARE, SELFPAY ==
[2023-11-22 13:37] LABS: MANUAL DIFF FLAG NO
[2023-11-22 13:50] LABS: Basophils Absolute Auto 0.1 X10*3/uL (0.0-0.2); Basophils Percent Auto 0.6 % (0-2); Eosinophils Absolute Auto 0.3 X10*3/uL (0.0-0.4); Eosinophils Percent Auto 3.2 % (0-4); Hemoglobin 12.8 g/dl (12.0-16.0); Imm Gran Abs Auto 0.03 X10*3/uL (0.00-0.03); Imm Gran Pct Auto 0.3 % (0.0-0.4); Lymphocytes Absolute Auto 2.8 X10*3/uL (1.2-4.9); Lymphocytes Percent Auto 30.6 % (20-40); Mean Corpuscular HGB Conc 32.8 g/dl (31.0-35.0); Mean Corpuscular Hemoglobin 27.5 pg (27.0-33.0); Mean Corpuscular Volume 83.7 fL (80.0-98.0); Mean Platelet Volume 10.9 fL (9.4-12.3); Monocytes Absolute Auto 0.5 X10*3/uL (0.1-1.2); Neutrophils Absolute Auto 5.6 x10*3/uL (2.0-8.3); Neutrophils Percent Auto 60.3 % (45-73); Platelet Count 293 X10*3/uL (160-400); Red Blood Count 4.66 X10*6/uL (4.20-5.50); White Blood Count 9.3 X10*3/uL (4.8-10.8)
[2023-11-22 14:02] LABS: Estimated Average Glucose 280 mg/dL; Hemoglobin A1c % 11.4 % (<6.0)
[2023-11-22 14:09] LABS: Alanine Aminotransferase 17 U/L (0-31); Albumin Level 3.6 g/dL (3.5-5.0); Alkaline Phosphatase 107 U/L (39-117); Anion Gap 12 (12-20); Aspartate Amino Transferase 17 U/L (5-31); Bilirubin Total 0.2 mg/dL (0.0-1.0); Blood Urea Nitrogen 15 mg/dL (9-16); Calcium 8.9 mg/dL (8.4-10.2); Carbon Dioxide 23 mmol/L (22-29); Chloride 105 mmol/L (96-108); Cholesterol 176 mg/dL (<200); Estimated Glomerular Filt Rate > 60; Glucose Fasting 256 mg/dL (60-99); HDL Cholesterol 54 mg/dL (>40); LDL Cholesterol Calculated 109 mg/dL (<100); Potassium 3.8 mmol/L (3.3-5.1); Sodium 136 mmol/L (135-145); Triglycerides 68 mg/dL (<150)
[2023-11-22 14:20] LABS: Creatinine Urine 22.41 mg/dL; Microalbum/Creatinine Ratio Ur 22.3 ug/mg cr (<30)
== END 2023-11-22 11:36 | disposition home or self-care (01) ==
LOC: HO.HMGCLDS 11:35
PROVIDERS: PCP Internal Medicine; Referring Provider Student in an Organized Health Care Education/Training Program; Visit Provider Internal Medicine
DX: E11.65 Type 2 diabetes mellitus with hyperglycemia (principal); E11.3219 Type 2 diabetes mellitus with mild nonproliferative diabetic retinopathy with macular edema, unspecified eye; I10 Essential (primary) hypertension; E78.5 Hyperlipidemia, unspecified; M05.9 Rheumatoid arthritis with rheumatoid factor, unspecified; M79.7 Fibromyalgia; G89.4 Chronic pain syndrome; B18.1 Chronic viral hepatitis B without delta-agent
CPT/HCPCS: 36415; 80053; 80061; 82043; 82570; 83036; 85025

== ENCOUNTER 2023-11-26 09:24 | Outpatient (AMB) | payer MEDICARE, SELFPAY ==
--- NOTE | 2023-11-26 09:27 | A.OFFPC_ITS ---
Vital Signs 11/26/23 09:28 Height 5 ft 3 in Weight 155 lb BMI 27.5 BP 156/90 H Blood Pressure Location Lt brachial Position Sitting Pulse 93 Pulse Source Pulse Oximeter Pulse Oximetry (%) 97 Oxygen Delivery Method Room Air Intake Visit Reasons: 9 Month follow up Allergies wasp bites Allergy (Intermediate, Uncoded 11/26/23 09:28) hives Medication List - Last Reconciled 11/26/23 by Vadim Sal MD atorvastatin 80 mg PO DAILY cholecalciferol (vitamin D3) (Vitamin D3) 25 mcg PO DAILY diclofenac sodium 1% (Voltaren Arthritis Pain) 2 grams topical BID duloxetine 20 mg PO BID 90 days epinephrine 0.3 mg IM Q4H PRN gabapentin 300 mg PO TID insulin glargine (Lantus Solostar U-100 Insulin) take 45 u at night and 30 u in am 90 days lisinopril 10 mg PO DAILY 90 days pen needle, diabetic (BD Ultra-Fine Yessi Pen Needle) As directed once daily sulfasalazine 1.5 grams (3 x 500 mg) PO BID trazodone 75 mg (1.5 x 50 mg) PO BEDTIME PRN Tobacco use date assessed: 09/02/23 Dental Screening Dental Screen Date: 09/02/23 HPI 9 Month follow up HPI Details Patient is 58-year-old female this is her regular follow-up appointment Patient says that her appointment with the lodging facilities manager coming up Wednesday In not done Meanwhile she is supposed to be taking Lantus 45 units at night and 30 in the morning but patient is only taking 30 units at night A sugar continued to be very high. I have told her to increase as prescribed and then follow up with endocrinology on Wednesday for further instructions She is checking her sugar 3 times a day She was on Trulicity but insurance stopped the coverage Hypertension: Blood pressure is elevated, patient is on lisinopril 5 mg I am increasing it to 10 Lipid disorder: Continue atorvastatin 80 mg Patient suffers from fibromyalgia and rheumatoid arthritis ,she is seeing Rheumatology and taking few medications through them. 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 Myofascial pain Type 2 diabetes, uncontrolled, with nonproliferative retinopathy with macular edema Hypovitaminosis D Hepatitis B Depression Anxiety Fibromyalgia Rheumatoid arthritis Hyperlipidemia Hypertension Diabetes mellitus Surgical History H/O left breast biopsy H/O: knee surgery H/O oral surgery History of hysterectomy Family History Father CVD (cardiovascular disease) HTN (hypertension) Diabetes Brother CVD (cardiovascular disease) Mother Liver cancer Son Asthma Paternal Aunt HTN (hypertension) Diabetes Social History Household Members: Spouse Housing: House Alcohol intake: current Alcohol intake frequency: holidays/special occasions only Alcohol type: wine and hard liquor Patient Tobacco Use Status: Never used Tobacco e-Cigarette/Vaping Use: Never Used Current occupational status: disabled Cognitive needs: No Hearing needs: No Vision needs: Yes Questionnaire PHQ-9 Over the last 2 weeks, how often have you been bothered by any of the following problems? 1. Little interest or pleasure in doing things: more than half the days 2. Feeling down, depressed, or hopeless: more than half the days 3. Trouble falling or staying asleep, or sleeping too much: nearly every day 4. Feeling tired or having little energy: more than half the days 5. Poor appetite or overeating: several days 6. Feeling bad about yourself - or that you are a failure or have let yourself or your family down: several days 7. Trouble concentrating on things, such as reading the newspaper or watching television: several days 8. Moving or speaking so slowly that other people could have noticed. Or the opposite - being so fidgety or restless that you have been moving around a lot more than usual: more than half the days 9. Thoughts that you would be better off or of hurting yourself in some way: several days Total score: 15 Depression Screening Interpretation: Positive Depression Screening Follow-up: Existing condition, In treatment and Community Mental Health Worker F/U Depression Screening Done: Yes 23903 - PHQ-9 Billing: Yes Source: Developed by Drs. Darell L. LeopoldoMarjan hollingsworth Kurt Kroenke and colleagues, with an educational jameel from [employer] Thrive Questionnaire Date Thrive assessed: 11/26/23 I am a: Patient What is your living situation today?: I have a steady place to live Within the past 12 months, did the food you bought not last and you didn't have the money to get more?: Never true Within the past 12 months, did you worry whether your food would run out before you got money to buy more?: Never true Do you have trouble paying for medicines?: No Do you have trouble getting transportation to medical appointments?: No Do you have trouble paying your heating and electricity bill?: No Do you have trouble taking care of your child, family member or friend?: No Do you have trouble with day-to-day activities such as bathing, preparing meals, shopping, managing finances, etc.?: No Are you currently unemployed and looking for a job?: No Are you interested in more education?: No Please select the resources that you would like help with: None Currently or been in a relationship where the following occur: no concerns reported THRIVE Score: 0 AUDIT C Alcohol Use Questionnaire (AUDIT-C) 1. How often do you have a drink containing alcohol?: Never 3. How often do you have six or more drinks on one occasion?: Never Total Score: 0 Score Reviewed/Action Taken: Yes LIZZY-7 AMB Questionnaire LIZZY-7 Date LIZZY - 7 assessed: 11/26/23 Feeling nervous, anxious, or on edge: 3 = Nearly every day Not being able to stop or control worryin = Nearly every day Worrying too much about different things: 3 = Nearly every day Trouble relaxin = Nearly every day Being so restless that it is hard to sit still: 2 = More than half the days Becoming easily annoyed or irritable: 2 = More than half the days Feeling afraid as if something awful might happen: 2 = More than half the days Total LIZZY-7 score (0-4 normal; 5-9 mild; 10-14 moderate; 15-21 severe): 18 Source: Developed by Marjan Bhagat Kurt Kroenke and colleagues, with an educational jameel from [employer] Review of Systems Const Denies chills and Denies fever(s) ENT Denies epistaxis and Denies nasal discharge Card Denies chest pain Resp Denies chest congestion, Denies cough and Denies hemoptysis GI Denies diarrhea and Denies nausea Neuro Reports no additional complaints Psych Reports no additional complaints Endo Reports no additional complaints Physical exam (Primary Care) Vital Signs: Last Vital Signs Pulse 93 11/26/23 09:28 BP 156/90 H 11/26/23 09:28 Pulse Ox 97 11/26/23 09:28 Oxygen Delivery Method Room Air 11/26/23 09:28 BMI result Body Mass Index 27.5 Tobacco/Smoking Status: Tobacco use Status Tobacco use date assessed 09/02/23 11/26/23 09:28 Patient Tobacco Use Status Never used Tobacco 11/26/23 09:28 e-Cigarette/Vaping Use Never Used 11/26/23 09:28 PHQ-9: PHQ-9 Score PHQ-9: Total score 15 11/26/23 10:08 Depression Screening Interpretation: Positive Depression Screening Follow-up: Existing condition, In treatment and Community Mental Health Worker F/U Thrive Assessment: Date of Thrive Assessment Date Thrive assessed 11/26/23 11/26/23 09:34 Currently or been in a relationship where the following occur: no concerns reported Const General: cooperative, comfortable and no acute distress Orientation/consciousness: patient oriented x3 HENMT Head: Yes normocephalic Eyes General: appearance normal, both eyes and all related structures Neck Neck: Yes supple Resp Effort & Inspection: normal respiratory effort, no cough and no stridor Cardio Rhythm: regular rhythm Heart sounds: S1 normal heart sound present and S2 normal heart sound present Skin General skin exam: turgor normal Neuro General: patient oriented x3, tone normal and moves all extremities Extrem Other: Tinea pedis rash between the dose both feet Right lower extremity: no edema Left lower extremity: no edema Office Procedures EKG [id number], Complete Assessment and Plan Assessment & Plan (1) Palpitations: Code(s): R00.2 - Palpitations (2) Hypertension: Code(s): I10 - Essential (primary) hypertension Qualifiers: Hypertension type: essential hypertension Qualified Code(s): I10 - Essential (primary) hypertension (3) Hyperlipidemia: Code(s): E78.5 - Hyperlipidemia, unspecified Qualifiers: Hyperlipidemia type: pure hypercholesterolemia Qualified Code(s): E78.00 - Pure hypercholesterolemia, unspecified (4) Type 2 diabetes, uncontrolled, with nonproliferative retinopathy with macular edema: Code(s): E11.3219 - Type 2 diabetes mellitus with mild nonproliferative diabetic retinopathy with macular edema, unspecified eye; E11.65 - Type 2 diabetes mellitus with hyperglycemia (5) Fibromyalgia: Code(s): M79.7 - Fibromyalgia (6) Seropositive rheumatoid arthritis: Comment: onset about 2009 ++RF -ve CCP hydroxychloroquine stopped due to diabetic retinoapathy. methotrexate stopped due to hep B viremia. on chronic sulfasalazine. Kevzara and Rinvoq not approved. Code(s): M05.9 - Rheumatoid arthritis with rheumatoid factor, unspecified (7) Tinea pedis: Code(s): B35.3 - Tinea pedis Qualifiers: Laterality: bilateral Qualified Code(s): B35.3 - Tinea pedis Plan Patient is 58-year-old female this is her regular follow-up appointment Patient says that her appointment with the lodging facilities manager coming up Wednesday In not done Meanwhile she is supposed to be taking Lantus 45 units at night and 30 in the morning but patient is only taking 30 units at night A sugar continued to be very high. I have told her to increase as prescribed and then follow up with endocrinology on Wednesday for further instructions She is checking her sugar 3 times a day She was on Trulicity but insurance stopped the coverage Hypertension: Blood pressure is elevated, patient is on lisinopril 5 mg I am increasing it to 10 Lipid disorder: Continue atorvastatin 80 mg Patient suffers from fibromyalgia and rheumatoid arthritis ,she is seeing Rheumatology and taking few medications through them. She is complaining of palpitations at night off and on, we did the EKG which showed normal sinus rhythm no acute findings 85 beats per minute Patient has developed tinea pedis I have sent cream for that Orders: Orders AMB EKG-In Office Today R00.2 - Palpitations Medications: New ketoconazole 2% 1 appl topical DAILY 60 grams 0RF Feet rash 30 days Changed From lisinopril 5 mg PO DAILY 90 days 90 tabs 1RF I10 - Essential (primary) hypertension To lisinopril 10 mg PO DAILY 90 tabs 1RF 90 days I10 - Essential (primary) hypertension Coding Level of Care Code Est Pt Level 5 (85088) Diagnoses Palpitations R00.2 Essential hypertension I10 Hypertension type: essential hypertension Pure hypercholesterolemia E78.00 Hyperlipidemia type: pure hypercholesterolemia Type 2 diabetes, uncontrolled, with nonproliferative retinopathy with macular edema E11.3219; E11.65 Fibromyalgia M79.7 Seropositive rheumatoid arthritis M05.9 Tinea pedis of both feet B35.3 Laterality: bilateral CPT Codes EKG - CPT: 46431-[id number], Complete ([id number]) Time Spent (min) 42 Comment [id number] with the patient, reviewing chart, charting, coordination of care, EKG
[2023-11-26 09:28] VITALS: BP 156/90; PULSE 93; O2SAT 97; BMI 27.5
== END 2023-11-26 11:28 | disposition home or self-care (01) ==
PROVIDERS: PCP Internal Medicine; Visit Provider Internal Medicine
DX: E11.65 Type 2 diabetes mellitus with hyperglycemia (principal); E11.3219 Type 2 diabetes mellitus with mild nonproliferative diabetic retinopathy with macular edema, unspecified eye; M05.9 Rheumatoid arthritis with rheumatoid factor, unspecified; R00.2 Palpitations; I10 Essential (primary) hypertension; E78.00 Pure hypercholesterolemia, unspecified; M79.7 Fibromyalgia; B35.3 Tinea pedis
CPT/HCPCS: 93000; 99215

== ENCOUNTER 2023-12-14 12:57 | Outpatient (REF) | payer MEDICARE, SELFPAY ==
[2023-12-14 13:12] LABS: MANUAL DIFF FLAG NO
[2023-12-14 13:53] LABS: Basophils Absolute Auto 0.1 X10*3/uL (0.0-0.2); Basophils Percent Auto 0.5 % (0-2); Eosinophils Absolute Auto 0.3 X10*3/uL (0.0-0.4); Eosinophils Percent Auto 3.5 % (0-4); Hematocrit 37.3 % (37.0-47.0); Hemoglobin 12.3 g/dl (12.0-16.0); Imm Gran Abs Auto 0.02 X10*3/uL (0.00-0.03); Imm Gran Pct Auto 0.2 % (0.0-0.4); Lymphocytes Absolute Auto 3.2 X10*3/uL (1.2-4.9); Lymphocytes Percent Auto 33.2 % (20-40); Mean Corpuscular Hemoglobin 27.7 pg (27.0-33.0); Mean Platelet Volume 10.4 fL (9.4-12.3); Monocytes Absolute Auto 0.6 X10*3/uL (0.1-1.2); Monocytes Percent Auto 6.6 % (2-11); Neutrophils Absolute Auto 5.4 x10*3/uL (2.0-8.3); Platelet Count 260 X10*3/uL (160-400); Red Blood Count 4.44 X10*6/uL (4.20-5.50); Red Cell Distribution Width 13.1 % (11.0-16.0); White Blood Count 9.6 X10*3/uL (4.8-10.8)
[2023-12-14 14:16] LABS: Alanine Aminotransferase 17 U/L (0-31); Albumin Level 3.7 g/dL (3.5-5.0); Alkaline Phosphatase 95 U/L (39-117); Anion Gap 11 (12-20); Aspartate Amino Transferase 20 U/L (5-31); Bilirubin Total 0.2 mg/dL (0.0-1.0); Blood Urea Nitrogen 15 mg/dL (9-16); C Reactive Protein 0.26 mg/dL (< or = 0.50); Calcium 9.3 mg/dL (8.4-10.2); Carbon Dioxide 27 mmol/L (22-29); Chloride 105 mmol/L (96-108); Estimated Glomerular Filt Rate > 60; Glucose Random 185 mg/dL (60-115); Sodium 139 mmol/L (135-145); Total Protein 7.3 g/dL (6.5-8.0)
[2023-12-14 14:37] LABS: Erythrocyte Sedimentation Rate 32 MM/HR (0-20)
[2023-12-17 11:03] LABS: TS Negative Control Passed; TS Panel A 0; TS Panel B 1; TS Positive Control Passed; TSpotTB Negative (Negative)
== END 2023-12-14 12:58 | disposition home or self-care (01) ==
LOC: HO.LAB 12:57
PROVIDERS: PCP Internal Medicine; Visit Provider Student in an Organized Health Care Education/Training Program
DX: M05.9 Rheumatoid arthritis with rheumatoid factor, unspecified (principal); Z11.7 Encounter for testing for latent tuberculosis infection; Z79.899 Other long term (current) drug therapy
CPT/HCPCS: 36415; 80053; 85025; 85652; 86140; 86481

== ENCOUNTER 2024-04-05 12:39 | Outpatient (AMB) | payer MEDICARE, SELFPAY ==
[2024-04-05 12:43] VITALS: BP 128/78; PULSE 93; O2SAT 98; BMI 27.3
--- NOTE | 2024-04-05 12:43 | A.OFFVIS_ITS ---
Vital Signs 04/05/24 12:43 Height 5 ft 3 in Weight 153 lb 14.122 oz BMI 27.3 BP 128/78 Blood Pressure Location Rt brachial Position Sitting Pulse 93 Pulse Source Pulse Oximeter Pulse Oximetry (%) 98 Oxygen Delivery Method Room Air Intake Visit Reasons: RA Intake Note: Patient presents today for follow up on RA, patient last seen on 09/30/2023. Allergies wasp bites Allergy (Intermediate, Uncoded 04/05/24 12:45) hives Medication List - Last Reconciled 04/05/24 by Ronak Liz MD atorvastatin 80 mg PO DAILY cholecalciferol (vitamin D3) (Vitamin D3) 25 mcg PO DAILY diclofenac sodium 1% (Voltaren Arthritis Pain) 2 grams topical BID duloxetine 20 mg PO BID epinephrine 0.3 mg IM Q4H PRN gabapentin 300 mg PO TID insulin glargine (Lantus Solostar U-100 Insulin) take 45 u at night and 30 u in am 90 days ketoconazole 2% 1 appl topical DAILY 30 days lisinopril 10 mg PO DAILY 90 days pen needle, diabetic (BD Ultra-Fine Yessi Pen Needle) As directed once daily sulfasalazine 1.5 grams (3 x 500 mg) PO BID trazodone 75 mg (1.5 x 50 mg) PO BEDTIME PRN HPI Comments Details: This is a 58-year-old female with seropositive RA who returns for follow-up. She is on sulfasalazine 3 g daily. When sulfasalazine dose was increased initially she was having some GI upset but now she is tolerating it well. She states that she continues to have some pain and puffiness of her hands, especially in the middle of the night and with activity. She has morning stiffness of her hands lasting 15 minutes. Her main complaint is her right kn ee, she has right knee pain with any activity. Denies any swelling Most recent history by Dr. Gonzalez 03/2023: The patient returns for evaluation of her rheumatoid arthritis, fibromyalgia, and hepatitis B. At her last visit in December she seemed to be doing okay but she has since run out of the duloxetine. Apparently the cost to her local pharmacy has increased and she wants a prescription sent to a different pharmacy. She remains on gabapentin 300 mg 3 times a day, sulfasalazine 1 g b.i.d., p.r.n. diclofenac gel, and nighttime trazodone taking half of the 100 mg tablet. The full 100 mg trazodone seemed to cause her some diaphoresis and fatigue the next day. She does report that in the past 3 or 4 weeks she has had some increase in hand and foot swelling. This tends to come and go. She also gets back pain, right shoulder pain, and fatigue. At the last visit I had referred her for treatment for hepatitis B, or least an evaluation as to the need for treatment. She is hepatitis B surface antigen positive but has normal LFTs. The Gastroenterology Department said to send her to infectious disease but I do not think she has an appointment yet. [facility], [facility] Medical History Shoulder pain long term use of drug Myofascial pain Type 2 diabetes, uncontrolled, with nonproliferative retinopathy with macular edema Hypovitaminosis D Hepatitis B Depression Anxiety Fibromyalgia Rheumatoid arthritis Hyperlipidemia Hypertension Diabetes mellitus Surgical History H/O left breast biopsy H/O: knee surgery H/O oral surgery History of hysterectomy Family History Father CVD (cardiovascular disease) HTN (hypertension) Diabetes Brother CVD (cardiovascular disease) Mother Liver cancer Son Asthma Paternal Aunt HTN (hypertension) Diabetes Social History Household Members: Spouse Housing: House Alcohol intake: current Alcohol intake frequency: holidays/special occasions only Alcohol type: wine and hard liquor Patient Tobacco Use Status: Never used Tobacco e-Cigarette/Vaping Use: Never Used Current occupational status: disabled Cognitive needs: No Hearing needs: No Vision needs: Yes Review of Systems Musc Reports arthralgias, Denies joint swelling, Reports limited range of motion and Reports stiffness Physical Exam Vital Signs: Last Vital Signs Pulse 93 04/05/24 12:43 BP 128/78 04/05/24 12:43 Pulse Ox 98 04/05/24 12:43 Oxygen Delivery Method Room Air 04/05/24 12:43 BMI result Body Mass Index 27.3 Const General: cooperative, healthy appearing and comfortable Nutritional Appearance: overweight Orientation/consciousness: patient oriented x3 Limitations: no limitations HEENT Head: Yes normocephalic and Yes atraumatic Mouth: moist mucous membranes Resp Effort & Inspection: normal respiratory effort and able to speak in complete sentences Auscultation: clear to auscultation bilaterally Cardio Rate: regular rate Rhythm: regular rhythm Skin General skin exam: no rashes or lesions noted Neuro General: patient oriented x3 Extrem Other: Mildly puffy fingers bilaterally Bilateral wrist pain with flexion and extension Few tender PIP is bilaterally Mildly limited right shoulder abduction Bilateral knee crepitus Right knee pain with full flexion-extension Normal nailfold capillaroscopy Assessment & Plan Assessment & Plan (1) Seropositive rheumatoid arthritis: Comment: onset about 2009 ++RF -ve CCP hydroxychloroquine stopped due to diabetic retinoapathy. methotrexate stopped due to hep B viremia. on chronic sulfasalazine. Kevzara and Rinvoq not approved. SSZ increased to 3 g daily 09/2023 Code(s): M05.9 - Rheumatoid arthritis with rheumatoid factor, unspecified Category: Medical Plan: This is a 58-year-old female with seropositive RA who returns for follow-up. She is on sulfasalazine 3 g daily. On exam she has slightly puffy fingers but no significant synovitis. I do not think her treatment should be escalated at this time. Will continue to monitor patient clinically, if she requires more aggressive therapy, biologics such as TNF inhibitors can be considered but patient will need to be on tenofovir Continue sulfasalazine 3 g daily Labs before next visit in 4 months (2) intermediate use of drug: Code(s): Z79.899 - Other long term care administrator (current) drug therapy Category: Medical Plan: Monitor safety labs (3) Chronic hepatitis B: Code(s): B18.1 - Chronic viral hepatitis B without delta-agent Category: Medical Plan: She was evaluated by Infectious Disease and her viral load is undetectable. No Treatment was given. Is biologics are needed, will reach out to Infectious Disease (4) Osteoarthritis of right knee: Code(s): M17.11 - Unilateral primary osteoarthritis, right knee Category: Medical Qualifiers: Osteoarthritis type: primary Qualified Code(s): M17.11 - Unilateral primary osteoarthritis, right knee Plan: Right knee pain not likely due to active RA. Likely due to degenerative arthritis. Follow-up with orthopedic Plan I spent 26 minutes reviewing patient's chart, evaluating patient, ordering diagnostic workup, counseling patient and documenting in the chart Orders: Orders Comprehensive Met. Panel 4 Months M05.9 - Rheumatoid arthritis with rheumatoid factor, unspecified, Z79.899 - Other custodial (current) drug therapy Complete Blood Count Auto Diff 4 Months M05.9 - Rheumatoid arthritis with rheumatoid factor, unspecified, Z79.899 - Other long term care administrator (current) drug therapy C Reactive Protein 4 Months M05.9 - Rheumatoid arthritis with rheumatoid factor, unspecified, Z79.899 - Other long term care administrator (current) drug therapy Erythrocyte Sedimentation Rate 4 Months M05.9 - Rheumatoid arthritis with rheumatoid factor, unspecified, Z79.899 - Other long term care administrator (current) drug therapy Medications: Refilled sulfasalazine 1.5 grams (3 x 500 mg) PO BID 540 tabs 1RF M05.9 - Rheumatoid arthritis with rheumatoid factor, unspecified Coding Level of Care Code Est Pt Level 4 (42928) Diagnoses Seropositive rheumatoid arthritis M05.9 long term use of drug Z79.899 Chronic hepatitis B B18.1 Primary osteoarthritis of right knee M17.11 Osteoarthritis type: primary
== END 2024-04-05 13:02 | disposition home or self-care (01) ==
PROVIDERS: PCP Internal Medicine; Visit Provider Student in an Organized Health Care Education/Training Program
DX: M05.79 Rheumatoid arthritis with rheumatoid factor of multiple sites without organ or systems involvement (principal); Z79.899 Other long term (current) drug therapy; B18.1 Chronic viral hepatitis B without delta-agent; M17.11 Unilateral primary osteoarthritis, right knee
CPT/HCPCS: 99214

== ENCOUNTER → 2024-04-05 12:39 | Outpatient (BNVA) | payer MEDICARE, SELFPAY | PROVIDERS: PCP Internal Medicine; Visit Provider Student in an Organized Health Care Education/Training Program | DX: M05.9 Rheumatoid arthritis with rheumatoid factor, unspecified (principal); M17.11 Unilateral primary osteoarthritis, right knee; M79.7 Fibromyalgia; B18.1 Chronic viral hepatitis B without delta-agent; Z79.899 Other long term (current) drug therapy | CPT/HCPCS: 99212 ==

== ENCOUNTER 2024-04-18 12:43 | Outpatient (AMB) | payer MEDICARE, SELFPAY ==
--- NOTE | 2024-04-18 13:06 | AM.OFFWIN_ITS ---
Intake Vital Signs 04/18/24 13:28 Height 5 ft 3 in Weight 152 lb BMI 26.9 BP 136/74 Blood Pressure Location Lt brachial Position Sitting Pulse 94 Pulse Source Pulse Oximeter Temp 98.9 F Temp Source Oral Pulse Oximetry (%) 98 Oxygen Delivery Method Room Air Intake Visit Reasons: EP cough, fever, body ache [phone] Intake Note: pt c/o cough, fever and body aches. Covid POS . Symptoms started . Patient Tobacco Use Status: Never used Tobacco Allergies wasp bites Allergy (Intermediate, Uncoded 04/18/24 13:07) hives Do you need a note to return to daycare/school/sports/work: No HPI HPI Comments History of Present Illness Details Patient is a 58-year-old female complaining of 5 days of cough fevers and body aches. She tested positive for COVID 5 days ago, she states she is feeling better overall but she has some residual head congestion and had 1 episode of shortness of breath yesterday. She also reports feeling nauseous to the point where she has only been taking in fluids for the last few days. She has been taking NyQuil and DayQuil around the clock which seems to have helped. She denies any vomiting or diarrhea. She also states that starting last , her blood sugars got up to 491, he states he has been gradually coming down over the last 5 days but her blood sugar this morning was 248. 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 Myofascial pain Type 2 diabetes, uncontrolled, with nonproliferative retinopathy with macular edema Hypovitaminosis D Hepatitis B Depression Anxiety Fibromyalgia Rheumatoid arthritis Hyperlipidemia Hypertension Diabetes mellitus Surgical History H/O left breast biopsy H/O: knee surgery H/O oral surgery History of hysterectomy Family History Father CVD (cardiovascular disease) HTN (hypertension) Diabetes Brother CVD (cardiovascular disease) Mother Liver cancer Son Asthma Paternal Aunt HTN (hypertension) Diabetes Social History Household Members: Spouse Housing: House Alcohol intake: current Alcohol intake frequency: holidays/special occasions only Alcohol type: wine and hard liquor Patient Tobacco Use Status: Never used Tobacco e-Cigarette/Vaping Use: Never Used Current occupational status: disabled Cognitive needs: No Hearing needs: No Vision needs: Yes Review of Systems Const All systems reviewed & are unremarkable except as noted in HPI and below Physical Exam Vital Signs: Last Vital Signs Temp 98.9 F 04/18/24 13:28 Pulse 94 04/18/24 13:28 BP 136/74 04/18/24 13:28 Pulse Ox 98 04/18/24 13:28 Oxygen Delivery Method Room Air 04/18/24 13:28 BMI result Body Mass Index 26.9 Const General: cooperative, healthy appearing, comfortable and no acute distress Orientation/consciousness: patient oriented x3 Limitations: no limitations HEENT Head: Yes normal to inspection Ears: hearing grossly normal bilaterally, external ears normal and TM's normal bilaterally General nose exam: Normal external nose present, Normal nares present and No nasal discharge present Face and sinus: Yes normal facial exam and Yes sinuses nontender Mouth: Normal oral and palatal mucosa present and moist mucous membranes Throat: Yes tonsils normal, Yes uvula midline and Yes posterior oropharynx abnormal (Erythema) Eyes General: appearance normal, both eyes and all related structures Neck Neck: Yes normal visual inspection Resp Effort & Inspection: normal respiratory effort, able to speak in complete sentences, Actively coughing, no respiratory distress, not tachypneic, no tripod positioning and no use of accessory muscles Auscultation: clear to auscultation bilaterally Cardio Rate: regular rate Rhythm: regular rhythm Heart sounds: normal S1 and S2 Skin General skin exam: no rashes or lesions noted Neuro General: patient oriented x3 Extrem General: Yes normal to inspection and Yes no clubbing, cyanosis or edema Assessment & Plan Assessment & Plan (1) URI (upper respiratory infection): Code(s): J06.9 - Acute upper respiratory infection, unspecified Qualifiers: URI type: unspecified viral URI Qualified Code(s): J06.9 - Acute upper respiratory infection, unspecified Plan: Recommended patient start taking Mucinex to help clear her congestion, she should also start taking a daily allergy pill as well as Flonase to clear her head congestion. We did test again for flu COVID and RSV. But patient is well out of the window of taking Paxlovid. (2) Elevated blood sugar: Code(s): R73.9 - Hyperglycemia, unspecified Plan: Recommended patient increase her Lantus by 10% or go up to 33 units per day from 30 units and then monitor her blood sugars closely. She should be able to go back to 30 units once her infection clears. Recommended she call her PCP's office if her blood sugars remain elevated after that change. Plan See above Coding Level of Care Code Est Pt Level 4 (91007) Diagnoses Viral upper respiratory tract infection J06.9 URI type: unspecified viral URI Elevated blood sugar R73.9
[2024-04-18 13:28] VITALS: BP 136/74; PULSE 94; TEMP 37.2; O2SAT 98; BMI 26.9
== END 2024-04-18 14:03 | disposition home or self-care (01) ==
PROVIDERS: PCP Internal Medicine; Visit Provider Physician Assistant
DX: E11.65 Type 2 diabetes mellitus with hyperglycemia (principal); R00.2 Palpitations; I10 Essential (primary) hypertension
CPT/HCPCS: 93000; 99214

== ENCOUNTER 2024-04-18 14:03 | Outpatient (REF) | payer MEDICARE, SELFPAY ==
[2024-04-18 17:20] LABS: Influenza A PCR NEGATIVE (Negative); Influenza B PCR NEGATIVE (Negative); Resp Syncy Virus RNA Qual PCR NEGATIVE (Negative); SARS COV2 PCR INHOUSE POSITIVE (Negative)
== END 2024-04-18 14:04 | disposition home or self-care (01) ==
LOC: HO.LAB 14:03
PROVIDERS: Visit Provider Physician Assistant
DX: J06.9 Acute upper respiratory infection, unspecified (principal)
CPT/HCPCS: 0241U

== ENCOUNTER 2024-05-16 23:55 | Emergency (ER) | payer MEDICARE, SELFPAY ==
[2024-05-17 00:07] VITALS: BP 153/91; PULSE 90; O2SAT 99
[2024-05-17 00:14] VITALS: BP 138/68; PULSE 109; RESP 24; TEMP 36.5; O2SAT 99; BMI 22.7
--- NOTE | 2024-05-17 00:26 | ECG_ITS ---
Test Reason : TACHYCARDIA Blood Pressure : / mmHG Vent. Rate : 096 BPM Atrial Rate : 096 BPM P-R Int : 176 ms QRS Dur : 074 ms QT Int : 380 ms P-R-T Axes : 060 060 061 degrees QTc Int : 480 ms Normal sinus rhythm Prolonged QT Abnormal ECG When compared with ECG of 26-AUG-2014 16:46, No significant change was found Referred By: Lorne Mendoza Electronically Signed By:MAG HILL MD
--- NOTE | 2024-05-17 00:26 | ED_ITS ---
HPI - General Adult General Chief complaint: Extremity Problem Stated complaint: EXCRUCIATING PAIN IN BOTH LEGS Time Seen by Provider: 05/17/24 00:14 Source: patient Mode of arrival: EMS Limitations: no limitations History of Present Illness ED Provider: luanne SOARES narrative: Patient's history of diabetes chronic pain syndrome hypertension hyperlipidemia rheumatoid arthritis and fibromyalgia on gabapentin comes here as she woke up from sleep with cramping pain both lower extremities and hands no nausea no vomiting no diarrhea patient never had similar pain in the past no headache no history of hypokalemia or hypomagnesemia Related Data Home Medications ?Medication ?Instructions ?Recorded ?Confirmed epinephrine 0.3 mg/0.3 mL 0.3 mg IM Q4H PRN 11/11/22 04/05/24 injection, auto-injector insulin aspart U-100 100 unit/mL 4 - 6 unit subcut TID 04/18/24 (3 mL) subcutaneous pen (Novolog FlexPen U-100 Insulin aspart) sulfasalazine 500 mg tablet 1 g PO BID 04/18/24 Previous Rx's ?Medication ?Instructions ?Recorded pen needle, diabetic 32 gauge x #100 ea 09/03/20 (BD Ultra-Fine Yessi Pen Needle) diclofenac sodium 1 % topical gel 2 g topical BID #100 grams 01/20/22 (Voltaren Arthritis Pain) trazodone 50 mg tablet 75 mg (1.5 x 50 mg) PO BEDTIME PRN 05/03/23 for insomnia #135 tabs atorvastatin 80 mg tablet 80 mg PO DAILY #90 tabs 05/18/23 gabapentin 300 mg capsule 300 mg PO TID #90 caps 11/09/23 lisinopril 10 mg tablet 10 mg PO DAILY 90 days #90 tabs 11/26/23 insulin glargine 100 unit/mL (3 See Rx Instructions subcut DAILY 12/06/23 mL) subcutaneous pen (Lantus 90 days #67.5 mL Solostar U-100 Insulin) ketoconazole 2 % topical cream 1 appl topical DAILY Feet rash 30 02/11/24 days #60 grams cholecalciferol (vitamin D3) 25 25 mcg PO DAILY #90 caps 05/12/24 mcg (1,000 unit) capsule (Vitamin D3) duloxetine 20 mg capsule,delayed 20 mg PO BID #180 caps 05/15/24 release potassium chloride 10 mEq 10 meq PO DAILY #10 caps 05/17/24 capsule,extended release Allergies Allergy/AdvReac Type Severity Reaction Status Date / Time wasp bites Allergy Intermediate hives Uncoded 05/17/24 00:17 Review of Systems 2 Review of Systems: Yes all other systems are reviewed and are negative [facility] Past Medical History 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 Myofascial pain Type 2 diabetes, uncontrolled, with nonproliferative retinopathy with macular edema Hypovitaminosis D Hepatitis B Depression Anxiety Fibromyalgia Rheumatoid arthritis Hyperlipidemia Hypertension Diabetes mellitus Surgical History H/O left breast biopsy H/O: knee surgery H/O oral surgery History of hysterectomy Family History Family History Father CVD (cardiovascular disease) HTN (hypertension) Diabetes Brother CVD (cardiovascular disease) Mother Liver cancer Son Asthma Paternal Aunt HTN (hypertension) Diabetes Social History Social History Household Members: Spouse Housing: House Alcohol intake: current Alcohol intake frequency: holidays/special occasions only Alcohol type: wine and hard liquor Patient Tobacco Use Status: Never used Tobacco e-Cigarette/Vaping Use: Never Used Advance Directives: No Do you have a plan to hurt others: No Plan Current occupational status: disabled Cognitive needs: No Hearing needs: No Vision needs: Yes Physical Exam ED Vital Signs: Vital Signs - 24 hr 05/17/24 00:14 Temperature 97.7 F Pulse Rate 109 H Respiratory Rate 24 H Blood Pressure 138/68 Pulse Oximetry 99 Oxygen Delivery Method Room Air BMI result Body Mass Index 22.7 Appearance: Alert. Oriented X3. No acute distress. Eyes: PERRLA, No Nystagmus ENT: Pharynx normal. Oral Mucosa moist Neck: Normal inspection. Neck supple. CVS: Normal heart rate and rhythm. Pulses normal. Respiratory: No respiratory distress. Equal air entry bilateral, no wheezing/rales/rhonchi Abdomen: Soft and nontender. Bowel sounds are present, no mass palpable, no CVA tenderness Skin: Skin warm and dry. Normal skin color. Normal skin turgor. Extremities: No lower extremity edema. No calf tenderness Neuro: Oriented X 3. No motor deficit. No sensory deficit.No cerebellar signs , cranial nerves II-XII intact Medications Administered Generic Name Dose Route Start Last Admin Trade Name Efra PRN Reason Stop Dose Admin Potassium Chloride 10 meq in 100 mls @ 100 mls/hr 05/17/24 01:30 05/17/24 01:34 Potassium Chloride/H20 IV 05/17/24 03:29 100 mls/hr Q1H DALTON Administration Discontinued Medications Generic Name Dose Route Start Last Admin Trade Name Freq PRN Reason Stop Dose Admin Sodium Chloride 1,000 mls @ 999 mls/hr 05/17/24 00:25 05/17/24 00:53 Ns IV 05/17/24 01:25 999 mls/hr .Q1H1M ONE Administration Ketorolac Tromethamine 30 mg 05/17/24 00:25 05/17/24 00:54 Ketorolac Tromethamine 30 Mg/Ml Vial IVPUSH 05/17/24 00:26 30 mg ONCE ONE Administration Potassium Bicarbonate 50 meq 05/17/24 01:27 05/17/24 01:35 Potassium Bicarbonate/Cit Ac 25 Meq Tablet.Eff PO 05/17/24 01:28 50 meq ONCE ONE Administration Medical Decision Making Medical Decision Making [facility] Narrative: Patient has diffuse body cramps lab workup showed hypokalemia 2.9 etiology not clear patient is not on diuretic will replace potassium patient does not have any prior history of hypomagnesemia and hypokalemia Differential Diagnosis Differential Diagnoses: The differential diagnosis associated with the presentation includes Hypokalemia/hypomagnesemia/hypocalcemia/rhabdomyolysis/medication side effect Lab Data [facility] Lab Attestation statement: I reviewed the patient's lab results. 05/17/24 00:38 05/17/24 00:38 Labs: Lab Results 05/17/24 Range/Units 00:38 WBC 10.6 (4.8-10.8) X10*3/uL RBC 4.55 (4.20-5.50) X10*6/uL Hgb 12.9 (12.0-16.0) g/dl Hct 38.6 (37.0-47.0) % MCV 84.8 (80.0-98.0) fL MCH 28.4 (27.0-33.0) pg MCHC 33.4 (31.0-35.0) g/dl RDW 13.6 (11.0-16.0) % Plt Count 237 (160-400) X10*3/uL MPV 9.6 (9.4-12.3) fL Immature Gran % (Auto) 0.5 H (0.0-0.4) % Neut % (Auto) 43.5 L (45-73) % Lymph % (Auto) 44.3 H (20-40) % [place] % (Auto) 6.8 (2-11) % Eos % (Auto) 4.3 H (0-4) % Baso % (Auto) 0.6 (0-2) % Lymph # (Auto) 4.7 (1.2-4.9) X10*3/uL [place] # (Auto) 0.7 (0.1-1.2) X10*3/uL Eos # (Auto) 0.5 H (0.0-0.4) X10*3/uL Baso # (Auto) 0.1 (0.0-0.2) X10*3/uL Abs Immat Gran (auto) 0.05 H (0.00-0.03) X10*3/uL Absolute Neuts (auto) 4.6 (2.0-8.3) x10*3/uL Absolute Nucleated RBC 0.000 (0.0-0.012) X10*3/uL Nucleated RBC % (auto) 0.0 (0.0-0.2) /100WBC Sodium 144 (135-145) mmol/L Potassium 2.9 L* D (3.3-5.1) mmol/L Chloride 109 H (96-108) mmol/L Carbon Dioxide 19 L (22-29) mmol/L Anion Gap 19 (12-20) BUN 10 (9-16) mg/dL Creatinine 0.81 (0.5-1.4) mg/dL Estim Creat Clear Calc 71.7 Estimated GFR > 60 Random Glucose 229 H (60-115) mg/dL Calcium 9.9 D (8.4-10.2) mg/dL Magnesium 2.0 (1.6-2.6) mg/dL Total Bilirubin 0.1 (0.0-1.0) mg/dL AST 17 (5-31) U/L ALT 15 (0-31) U/L Alkaline Phosphatase 104 (39-117) U/L Total Creatine Kinase 82 (26-140) U/L Total Protein 7.5 (6.5-8.0) g/dL Albumin 3.9 (3.5-5.0) g/dL Independent Interpretation I performed an independent interpretation of an: EKG Interpretation: Normal sinus rhythm heart rate 96 beats per minute prolonged QTC normal axis QT interval 480 milliseconds no acute ischemia Discharge Plan Discharge Clinical Impression: Acute hypokalemia Patient Disposition: Home, Self-Care Instructions: Potassium Content of Foods List (ED), Hypokalemia (ED) Additional Instructions: Have food with more potassium like bananas oranges Potassium tablet daily for next 1 week Rechecked potassium with your PCP in 1 week Prescriptions: New potassium chloride 10 mEq capsule, extended release 10 meq PO DAILY Qty: 10 0RF No Action (DME) pen needle, diabetic [BD Ultra-Fine Yessi Pen Needle] 32 gauge x 5/32 needle See Rx Instructions .ROUTE .MEDSUPPLY Qty: 100 3RF Rx Instructions: As directed once daily diclofenac sodium [Voltaren Arthritis Pain] 1 % gel 2 g topical BID Qty: 100 2RF Rx Instructions: apply 2 gram to affected jionts twice daily as needed trazodone 50 mg tablet 75 mg PO BEDTIME PRN (Reason: for insomnia) Qty: 135 1RF atorvastatin 80 mg tablet 80 mg PO DAILY Qty: 90 1RF gabapentin 300 mg capsule 300 mg PO TID Qty: 90 2RF insulin glargine [Lantus Solostar U-100 Insulin] 100 unit/mL (3 mL) insulin pen See Rx Instructions subcut DAILY 90 Days Qty: 67.5 3RF Rx Instructions: take 45 u at night and 30 u in am ketoconazole 2 % cream 1 appl topical DAILY 30 Days Qty: 60 0RF cholecalciferol (vitamin D3) [Vitamin D3] 25 mcg (1,000 unit) capsule 25 mcg PO DAILY Qty: 90 3RF duloxetine 20 mg capsule,delayed release(DR/EC) 20 mg PO BID Qty: 180 0RF lisinopril 10 mg tablet 10 mg PO DAILY 90 Days Qty: 90 1RF insulin aspart U-100 [Novolog FlexPen U-100 Insulin] 100 unit/mL (3 mL) insulin pen 4 - 6 unit subcut TID sulfasalazine 500 mg tablet 1 g PO BID epinephrine 0.3 mg/0.3 mL auto-injector 0.3 mg IM Q4H PRN Print Language: Romanian
[2024-05-17 00:44] LABS: MANUAL DIFF FLAG NO
[2024-05-17 00:46] LABS: Basophils Absolute Auto 0.1 X10*3/uL (0.0-0.2); Basophils Percent Auto 0.6 % (0-2); Eosinophils Absolute Auto 0.5 X10*3/uL (0.0-0.4); Eosinophils Percent Auto 4.3 % (0-4); Hematocrit 38.6 % (37.0-47.0); Hemoglobin 12.9 g/dl (12.0-16.0); Imm Gran Abs Auto 0.05 X10*3/uL (0.00-0.03); Imm Gran Pct Auto 0.5 % (0.0-0.4); Lymphocytes Absolute Auto 4.7 X10*3/uL (1.2-4.9); Lymphocytes Percent Auto 44.3 % (20-40); Mean Corpuscular HGB Conc 33.4 g/dl (31.0-35.0); Mean Corpuscular Hemoglobin 28.4 pg (27.0-33.0); Mean Corpuscular Volume 84.8 fL (80.0-98.0); Mean Platelet Volume 9.6 fL (9.4-12.3); Monocytes Absolute Auto 0.7 X10*3/uL (0.1-1.2); Monocytes Percent Auto 6.8 % (2-11); Neutrophils Absolute Auto 4.6 x10*3/uL (2.0-8.3); Neutrophils Percent Auto 43.5 % (45-73); Platelet Count 237 X10*3/uL (160-400); Red Blood Count 4.55 X10*6/uL (4.20-5.50); Red Cell Distribution Width 13.6 % (11.0-16.0); White Blood Count 10.6 X10*3/uL (4.8-10.8)
[2024-05-17] MEDS: 0.9 % Sodium Chloride 1,000 ML 999 ML IV (00:53)
[2024-05-17] MEDS: Ketorolac Tromethamine 30 MG/ML VIAL IVPUSH (00:54)
[2024-05-17 01:12] LABS: Alanine Aminotransferase 15 U/L (0-31); Albumin Level 3.9 g/dL (3.5-5.0); Alkaline Phosphatase 104 U/L (39-117); Anion Gap 19 (12-20); Aspartate Amino Transferase 17 U/L (5-31); Bilirubin Total 0.1 mg/dL (0.0-1.0); Blood Urea Nitrogen 10 mg/dL (9-16); Calcium 9.9 mg/dL (8.4-10.2); Carbon Dioxide 19 mmol/L (22-29); Chloride 109 mmol/L (96-108); Creatinine Clr Calc Pharmacy 71.7; Estimated Glomerular Filt Rate > 60; Glucose Random 229 mg/dL (60-115); Sodium 144 mmol/L (135-145); Total Protein 7.5 g/dL (6.5-8.0)
[2024-05-17 01:22] LABS: Potassium 2.9 mmol/L (3.3-5.1)
--- NOTE | 2024-05-17 01:26 | PC.NURSE ---
critical K+ reported to pt placed on nurse monitoring.
[2024-05-17] MEDS: Potassium Chloride/H20 10 MEQ/100 ML PIGGYBACK 100 MEQ IV ×2 (01:34→02:36)
[2024-05-17] MEDS: Potassium Bicarbonate/Cit AC 25 MEQ TABLET.EFF 50 MEQ PO (01:35)
[2024-05-17 02:00] VITALS: BP 140/75; PULSE 99; RESP 17; TEMP 36.6; O2SAT 97
[2024-05-17 04:00] VITALS: BP 120/70; PULSE 100; RESP 19; TEMP 36.4; O2SAT 99
[2024-05-17 04:29] VITALS: BP 120/70; PULSE 100; RESP 19; TEMP 36.4; O2SAT 99
== END 2024-05-17 04:30 | disposition home or self-care (01) ==
PROVIDERS: Emergency Provider Internal Medicine; PCP Internal Medicine
DX: E87.6 Hypokalemia (principal); E11.9 Type 2 diabetes mellitus without complications; I10 Essential (primary) hypertension; E78.5 Hyperlipidemia, unspecified; G89.4 Chronic pain syndrome; Z79.4 Long term (current) use of insulin; Z79.02 Long term (current) use of antithrombotics/antiplatelets; Z79.899 Other long term (current) drug therapy
CPT/HCPCS: 36415; 80053; 82550; 83735; 85025; 93005; 96361; 96374; 96375; 99284; J1885; J3480

== ENCOUNTER → 2024-05-17 00:26 | Outpatient (BNV) | payer MEDICARE, SELFPAY | PROVIDERS: Emergency Provider Internal Medicine; PCP Internal Medicine; Visit Provider Internal Medicine Cardiovascular Disease | DX: R94.31 Abnormal electrocardiogram [ECG] [EKG] (principal) | CPT/HCPCS: 93010 ==

== ENCOUNTER 2024-06-02 10:22 | Outpatient (AMB) | payer MEDICARE, SELFPAY ==
[2024-06-02 10:23] VITALS: BP 136/72; PULSE 96; O2SAT 99; BMI 24.0
--- NOTE | 2024-06-02 10:23 | A.OFFPC_ITS ---
Vital Signs 06/02/24 10:23 Height 5 ft 7 in Weight 153 lb 2 oz BMI 24.0 BP 136/72 Blood Pressure Location Rt brachial Position Sitting Pulse 96 Pulse Source Pulse Oximeter Pulse Oximetry (%) 99 Oxygen Delivery Method Room Air Intake Visit Reasons: low potassium Allergies wasp bites Allergy (Intermediate, Uncoded 05/17/24 00:17) hives Medication List - Last Reconciled 06/02/24 by Vadim Sal MD atorvastatin 80 mg PO DAILY cholecalciferol (vitamin D3) (Vitamin D3) 25 mcg PO DAILY diclofenac sodium 1% (Voltaren Arthritis Pain) 2 grams topical BID duloxetine 20 mg PO BID epinephrine 0.3 mg IM Q4H PRN gabapentin 300 mg PO TID insulin aspart U-100 (Novolog FlexPen U-100 Insulin aspart) 4 - 6 units subcut TID insulin glargine (Lantus Solostar U-100 Insulin) take 45 u at night and 30 u in am 90 days ketoconazole 2% 1 appl topical DAILY 30 days lisinopril 10 mg PO DAILY 90 days pen needle, diabetic (BD Ultra-Fine Yessi Pen Needle) As directed once daily potassium chloride ER 10 mEq PO DAILY sulfasalazine 1 g PO BID trazodone 75 mg (1.5 x 50 mg) PO BEDTIME PRN Tobacco use date assessed: 06/02/24 Dental Screening Dental Screen Date: 06/02/24 Did you have a dental visit in the last 12 months?: Yes Did you have a dental problem in the last 6 months where you did not have access to dental care?: No Was dental information given to patient?: Patient has dentist HPI low potassium HPI Details Patient is 59-year-old female with a history of diabetes mellitus, chronic pain syndrome, hypertension, hyperlipidemia, rheumatoid arthritis, fibromyalgia Presented to emergency room on 05/17/2024 [facility] with a chief complaint of cramping both lower extremity send hand Lab revealed hypokalemia with a level of 2.9 and hypomagnesemia Patient was given supplement EKG done showed 96 beats per minute QTC normal QT interval of 480 millisecond without any ischemia She came in today for follow-up appointment Patient has done with a potassium supplement We will be repeating labs again today. 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 Myofascial pain Type 2 diabetes, uncontrolled, with nonproliferative retinopathy with macular edema Hypovitaminosis D Hepatitis B Depression Anxiety Fibromyalgia Rheumatoid arthritis Hyperlipidemia Hypertension Diabetes mellitus Surgical History H/O left breast biopsy H/O: knee surgery H/O oral surgery History of hysterectomy Family History Father CVD (cardiovascular disease) HTN (hypertension) Diabetes Brother CVD (cardiovascular disease) Mother Liver cancer Son Asthma Paternal Aunt HTN (hypertension) Diabetes Social History Household Members: Spouse Housing: House Alcohol intake: current Alcohol intake frequency: holidays/special occasions only Alcohol type: wine and hard liquor Patient Tobacco Use Status: Never used Tobacco e-Cigarette/Vaping Use: Never Used service: No Current occupational status: disabled Cognitive needs: No Hearing needs: No Vision needs: Yes Questionnaire Thrive Questionnaire Date Thrive assessed: 06/02/24 I am a: Patient What is your living situation today?: I have a steady place to live Within the past 12 months, did the food you bought not last and you didn't have the money to get more?: Never true Within the past 12 months, did you worry whether your food would run out before you got money to buy more?: Never true Do you have trouble paying for medicines?: No Do you have trouble getting transportation to medical appointments?: No Do you have trouble paying your heating and electricity bill?: No Do you have trouble taking care of your child, family member or friend?: No Do you have trouble with day-to-day activities such as bathing, preparing meals, shopping, managing finances, etc.?: No Are you currently unemployed and looking for a job?: No Are you interested in more education?: No Please select the resources that you would like help with: None Currently or been in a relationship where the following occur: No concerns reported THRIVE Score: 0 AUDIT C Alcohol Use Questionnaire (AUDIT-C) 1. How often do you have a drink containing alcohol?: Never 3. How often do you have six or more drinks on one occasion?: Never Total Score: 0 Score Reviewed/Action Taken: Yes LIZZY-7 AMB Questionnaire LIZZY-7 Date LIZZY - 7 assessed: 11/26/23 Worrying too much about different things: 3 = Nearly every day Source: Developed by Drs. Darell Mina, Marjan Connolly, Sascha Thompson and colleagues, with an educational jameel from [employer]. Review of Systems Const Denies chills and Denies fever(s) ENT Denies epistaxis and Denies nasal discharge Card Denies chest pain Resp Denies chest congestion and Denies hemoptysis GI Denies diarrhea and Denies nausea Skin/Breast Denies rash Neuro Reports no additional complaints Psych Reports no additional complaints Endo Reports no additional complaints Physical exam (Primary Care) Vital Signs: Last Vital Signs Pulse 96 06/02/24 10:23 BP 136/72 06/02/24 10:23 Pulse Ox 99 06/02/24 10:23 Oxygen Delivery Method Room Air 06/02/24 10:23 BMI result Body Mass Index 24.0 Tobacco/Smoking Status: Tobacco use Status Tobacco use date assessed 06/02/24 06/02/24 10:26 Patient Tobacco Use Status Never used Tobacco 06/02/24 10:26 e-Cigarette/Vaping Use Never Used 06/02/24 10:26 Thrive Assessment: Date of Thrive Assessment Date Thrive assessed 06/02/24 06/02/24 10:26 Currently or been in a relationship where the following occur: No concerns reported Const General: cooperative, comfortable and no acute distress Orientation/consciousness: patient oriented x3 HENMT Head: Yes normocephalic Eyes General: appearance normal, both eyes and all related structures Neck Neck: Yes supple Resp Effort & Inspection: normal respiratory effort, no cough and no stridor Cardio Rhythm: regular rhythm Heart sounds: S1 normal heart sound present and S2 normal heart sound present Skin General skin exam: turgor normal Neuro General: patient oriented x3, tone normal and moves all extremities Extrem Right lower extremity: no edema Left lower extremity: no edema Coding Level of Care Code Est Pt Level 4 (21099) Diagnoses Hypokalemia E87.6 Hypomagnesemia E83.42 Post-COVID syndrome U09.9 Chronic cough R05.3 Assessment & Plan Assessment & Plan (1) Hypokalemia: Code(s): E87.6 - Hypokalemia Category: Medical (2) Hypomagnesemia: Code(s): E83.42 - Hypomagnesemia Category: Medical (3) Post-COVID syndrome: Code(s): U09.9 - Post COVID-19 condition, unspecified Category: Medical (4) Chronic cough: Code(s): R05.3 - Chronic cough Category: Medical Plan Patient is 59-year-old female with a history of diabetes mellitus, chronic pain syndrome, hypertension, hyperlipidemia, rheumatoid arthritis, fibromyalgia Presented to emergency room on 05/17/2024 [facility] with a chief complaint of cramping both lower extremity send hand Lab revealed hypokalemia with a level of 2.9 and hypomagnesemia Patient was given supplement EKG done showed 96 beats per minute QTC normal QT interval of 480 millisecond without any ischemia She came in today for follow-up appointment Patient has done with a potassium supplement We will be repeating labs again today. Blood pressure is stable she is on lisinopril 10 mg She is also on atorvastatin for lipid control We will be repeating labs again Checking potassium as well as magnesium Her cramping has stopped Further management after the reports She is also complaining of dry cough which started when she had COVID 2 months ago and it is not resolving I have sent a course of prednisone with the patient She is to return in 7 days for follow-up Orders: Orders Comprehensive Met. Panel Today E87.6 - Hypokalemia Magnesium Today E83.42 - Hypomagnesemia Medications: New prednisone 20 mg PO DAILY 7 days 7 tabs 0RF
== END 2024-06-02 10:47 | disposition home or self-care (01) ==
PROVIDERS: PCP Internal Medicine; Visit Provider Internal Medicine
DX: E87.6 Hypokalemia (principal); E83.42 Hypomagnesemia; U09.9 Post COVID-19 condition, unspecified; R05.3 Chronic cough

== ENCOUNTER → 2024-06-02 10:22 | Outpatient (BNVA) | payer MEDICARE, SELFPAY | PROVIDERS: PCP Internal Medicine; Visit Provider Internal Medicine ==

== ENCOUNTER 2024-06-02 10:50 | Outpatient (REF) | payer MEDICARE, SELFPAY ==
[2024-06-02 14:02] LABS: Alanine Aminotransferase 17 U/L (0-31); Albumin Level 3.7 g/dL (3.5-5.0); Alkaline Phosphatase 83 U/L (39-117); Anion Gap 9 (12-20); Aspartate Amino Transferase 27 U/L (5-31); Bilirubin Total 0.2 mg/dL (0.0-1.0); Blood Urea Nitrogen 13 mg/dL (9-16); Calcium 9.2 mg/dL (8.4-10.2); Carbon Dioxide 28 mmol/L (22-29); Chloride 103 mmol/L (96-108); Estimated Glomerular Filt Rate > 60; Glucose Random 375 mg/dL (60-115); Magnesium 1.9 mg/dL (1.6-2.6); Potassium 3.8 mmol/L (3.3-5.1); Sodium 136 mmol/L (135-145); Total Protein 7.2 g/dL (6.5-8.0)
== END 2024-06-02 10:51 | disposition home or self-care (01) ==
LOC: HO.HMGCLDS 10:50
PROVIDERS: PCP Internal Medicine; Visit Provider Internal Medicine
DX: E87.6 Hypokalemia (principal); E83.42 Hypomagnesemia; U09.9 Post COVID-19 condition, unspecified; R05.3 Chronic cough; I10 Essential (primary) hypertension; Z79.899 Other long term (current) drug therapy
CPT/HCPCS: 36415; 80053; 83735; 99212

== ENCOUNTER 2024-06-13 13:14 | Outpatient (AMB) | payer MEDICARE, SELFPAY ==
[2024-06-13 13:27] VITALS: BP 128/70; PULSE 105; O2SAT 98; BMI 23.8
--- NOTE | 2024-06-13 13:27 | MHC.PC.OV ---
Vital Signs 06/13/24 13:27 Height 5 ft 7 in Weight 152 lb 2 oz BMI 23.8 BP 128/70 Blood Pressure Location Rt brachial Position Sitting Pulse 105 H Pulse Source Pulse Oximeter Pulse Oximetry (%) 98 Oxygen Delivery Method Room Air Intake Visit Reasons: 1 week follow up Allergies wasp bites Allergy (Intermediate, Uncoded 05/17/24 00:17) hives Medication List - Last Reconciled 06/13/24 by Vadim Sal MD atorvastatin 80 mg PO DAILY cholecalciferol (vitamin D3) (Vitamin D3) 25 mcg PO DAILY diclofenac sodium 1% (Voltaren Arthritis Pain) 2 grams topical BID duloxetine 20 mg PO BID epinephrine 0.3 mg IM Q4H PRN gabapentin 300 mg PO TID insulin aspart U-100 (Novolog FlexPen U-100 Insulin aspart) 4 - 6 units subcut TID insulin glargine (Lantus Solostar U-100 Insulin) 50 units (0.5 mL) subcut BID 90 days ketoconazole 2% 1 appl topical DAILY 30 days lisinopril 10 mg PO DAILY 90 days pen needle, diabetic (BD Ultra-Fine Yessi Pen Needle) As directed once daily sulfasalazine 1 g PO BID trazodone 75 mg (1.5 x 50 mg) PO BEDTIME PRN Tobacco use date assessed: 06/02/24 Dental Screening Dental Screen Date: 06/02/24 HPI 1 week follow up HPI Details Patient is 59-year-old female Continued to have palpitations, I have ordered Holter monitor and cardiology referral placed Patient is established with [facility] Labs done June 02 showed random sugar of 375 Patient is on long-acting insulin of 30 units in a.m. 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 Myofascial pain Type 2 diabetes, uncontrolled, with nonproliferative retinopathy with macular edema Hypovitaminosis D Hepatitis B Depression Anxiety Fibromyalgia Rheumatoid arthritis Hyperlipidemia Hypertension Diabetes mellitus Surgical History H/O left breast biopsy H/O: knee surgery H/O oral surgery History of hysterectomy Family History Father CVD (cardiovascular disease) HTN (hypertension) Diabetes Brother CVD (cardiovascular disease) Mother Liver cancer Son Asthma Paternal Aunt HTN (hypertension) Diabetes Social History Household Members: Spouse Housing: House Alcohol intake: current Alcohol intake frequency: holidays/special occasions only Alcohol type: wine and hard liquor Patient Tobacco Use Status: Never used Tobacco e-Cigarette/Vaping Use: Never Used service: No Current occupational status: disabled Cognitive needs: No Hearing needs: No Vision needs: Yes Questionnaire Thrive Questionnaire Date Thrive assessed: 06/02/24 I am a: Patient What is your living situation today?: I have a steady place to live Within the past 12 months, did the food you bought not last and you didn't have the money to get more?: Sometimes True Within the past 12 months, did you worry whether your food would run out before you got money to buy more?: Sometimes True Do you have trouble paying for medicines?: Yes Do you have trouble getting transportation to medical appointments?: No Do you have trouble paying your heating and electricity bill?: No Do you have trouble taking care of your child, family member or friend?: No Do you have trouble with day-to-day activities such as bathing, preparing meals, shopping, managing finances, etc.?: No Are you currently unemployed and looking for a job?: No Are you interested in more education?: No Currently or been in a relationship where the following occur: No concerns reported THRIVE Score: 2 LIZZY-7 AMB Questionnaire LIZZY-7 Date LIZZY - 7 assessed: 11/26/23 Source: Developed by Drs. Darell Mina, Marjan Connolly, Sascha Thompson and colleagues, with an educational jameel from [employer]. Review of Systems Const Denies chills and Denies fever(s) ENT Denies epistaxis and Denies nasal discharge Card Denies chest pain Resp Denies chest congestion, Denies cough and Denies hemoptysis GI Denies diarrhea and Denies nausea Skin/Breast Denies rash Neuro Reports no additional complaints Psych Reports no additional complaints Endo Reports no additional complaints Physical exam (Primary Care) Vital Signs: Last Vital Signs Pulse 105 H 06/13/24 13:27 BP 128/70 06/13/24 13:27 Pulse Ox 98 06/13/24 13:27 Oxygen Delivery Method Room Air 06/13/24 13:27 BMI result Body Mass Index 23.8 Tobacco/Smoking Status: Tobacco use Status Tobacco use date assessed 06/02/24 06/02/24 10:26 Patient Tobacco Use Status Never used Tobacco 06/02/24 10:26 e-Cigarette/Vaping Use Never Used 06/02/24 10:26 Thrive Assessment: Date of Thrive Assessment Date Thrive assessed 06/02/24 06/02/24 10:26 Currently or been in a relationship where the following occur: No concerns reported Const General: cooperative, comfortable and no acute distress Orientation/consciousness: patient oriented x3 HENMT Head: Yes normocephalic Eyes General: appearance normal, both eyes and all related structures Neck Neck: Yes supple Resp Effort & Inspection: normal respiratory effort, no cough and no stridor Cardio Rhythm: regular rhythm Heart sounds: S1 normal heart sound present and S2 normal heart sound present Skin General skin exam: turgor normal Neuro General: patient oriented x3, tone normal and moves all extremities Extrem Right lower extremity: no edema Left lower extremity: no edema Coding Level of Care Code Est Pt Level 4 (17867) Diagnoses Palpitations R00.2 Essential hypertension I10 Hypertension type: essential hypertension Electrolyte abnormality E87.8 Elevated blood sugar R73.9 Assessment & Plan Assessment & Plan (1) Palpitations: Code(s): R00.2 - Palpitations Category: Medical (2) Hypertension: Code(s): I10 - Essential (primary) hypertension Category: Medical Qualifiers: Hypertension type: essential hypertension Qualified Code(s): I10 - Essential (primary) hypertension (3) Electrolyte abnormality: Code(s): E87.8 - Other disorders of electrolyte and fluid balance, not elsewhere classified Category: Medical (4) Elevated blood sugar: Code(s): R73.9 - Hyperglycemia, unspecified Category: Medical Plan Patient is 59-year-old female Continued to have palpitations, I have ordered Holter monitor and cardiology referral placed Patient is established with [facility] Labs done June 02 showed random sugar of 375 Patient is on long-acting insulin of 30 units in a.m. 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 mechanic Rayne Patient continued to have high blood sugars She is taking lisinopril 10 mg for blood pressure control Trazodone 75 mg at night as sleep aid Duloxetine for depression and pain Atorvastatin 80 mg for lipid control Kidney functions are intact Potassium does fluctuate, however last set of lab potassium was 3.8 I have placed another order to be repeated in 4 weeks Orders: Orders Basic Metabolic Panel Today E87.8 - Other disorders of electrolyte and fluid balance, not elsewhere classified, I10 - Essential (primary) hypertension, R00.2 - Palpitations ECG 3 day holter monitor Today R00.2 - Palpitations Magnesium Today E87.8 - Other disorders of electrolyte and fluid balance, not elsewhere classified Referrals Cardiology Referral R00.2 - Palpitations
== END 2024-06-13 13:48 | disposition home or self-care (01) ==
LOC: HO.HMCC 13:14
PROVIDERS: PCP Internal Medicine; Visit Provider Internal Medicine
DX: R00.2 Palpitations (principal); I10 Essential (primary) hypertension; E87.8 Other disorders of electrolyte and fluid balance, not elsewhere classified; R73.9 Hyperglycemia, unspecified

== ENCOUNTER → 2024-06-13 13:14 | Outpatient (BNVA) | payer MEDICARE, SELFPAY | PROVIDERS: PCP Internal Medicine; Visit Provider Internal Medicine | DX: R00.2 Palpitations (principal); I10 Essential (primary) hypertension; E87.8 Other disorders of electrolyte and fluid balance, not elsewhere classified; R73.9 Hyperglycemia, unspecified | CPT/HCPCS: 99212 ==

== ENCOUNTER 2024-06-14 11:49 | Outpatient (AMB) | payer MEDICARE, SELFPAY ==
[2024-06-14 11:53] VITALS: PULSE 105; BMI 24.6
--- NOTE | 2024-06-14 11:53 | A.OFFVIS_ITS ---
Vital Signs 06/14/24 11:53 Height 5 ft 7 in Weight 157 lb BMI 24.6 Pulse 105 H Pulse Source Pulse Oximeter Intake Visit Reasons: follow up chronic hep b Allergies wasp bites Allergy (Intermediate, Uncoded 06/14/24 11:56) hives HPI HPI follow up chronic hep b: Details: She has no complaints. Hepatitis B is undetectable. She has delta antibody negative. Abdomen u/s is negative. She remains on sulfasalazine. 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 Myofascial pain Type 2 diabetes, uncontrolled, with nonproliferative retinopathy with macular edema Hypovitaminosis D Hepatitis B Depression Anxiety Fibromyalgia Rheumatoid arthritis Hyperlipidemia Hypertension Diabetes mellitus Surgical History H/O left breast biopsy H/O: knee surgery H/O oral surgery History of hysterectomy Family History Father CVD (cardiovascular disease) HTN (hypertension) Diabetes Brother CVD (cardiovascular disease) Mother Liver cancer Son Asthma Paternal Aunt HTN (hypertension) Diabetes Social History Household Members: Spouse Housing: House Alcohol intake: current Alcohol intake frequency: holidays/special occasions only Alcohol type: wine and hard liquor Patient Tobacco Use Status: Never used Tobacco e-Cigarette/Vaping Use: Never Used service: No Current occupational status: disabled Cognitive needs: No Hearing needs: No Vision needs: Yes Review of Systems Const All systems reviewed & are unremarkable except as noted in HPI and below Physical Exam Vital Signs: Last Vital Signs Pulse 105 H 06/14/24 11:53 BMI result Body Mass Index 24.6 Const General: cooperative HEENT Head: Yes normal to inspection Face and sinus: Yes normal facial exam Mouth: Normal oral and palatal mucosa present Teeth and gingiva: dentition normal Eyes General: appearance normal, both eyes and all related structures Pupils: Equal, round and reactive pupils present Resp Effort & Inspection: normal respiratory effort Cardio Rate: regular rate Rhythm: regular rhythm GI Palpation (GI): Soft to palpation and nontender General: Yes no CVA tenderness Back/Spine/Pelvis Back: no CVA tenderness Skin General skin exam: no rashes or lesions noted Neuro General: moves all extremities Cranial nerves: Yes Equal, round and reactive pupils present Extrem General: Yes normal to inspection Psych Appearance: grossly normal Assessment & Plan Assessment & Plan (1) Hepatitis B: Comment: She has disease inactive at this time. Code(s): B19.10 - Unspecified viral hepatitis B without hepatic coma Category: Medical Plan: Would check labs Hold Hepatitis B medication at this time. Orders: Orders Hepatitis B Viral DNA Qn 06/14/24 B19.10 - Unspecified viral hepatitis B without hepatic coma Hepatitis Delta Antibody 06/14/24 B19.10 - Unspecified viral hepatitis B without hepatic coma Prothrombin Time INR 06/14/24 B19.10 - Unspecified viral hepatitis B without hepatic coma Hepatitis C Antibody 06/14/24 B19.10 - Unspecified viral hepatitis B without hepatic coma Liver Panel 06/14/24 B19.10 - Unspecified viral hepatitis B without hepatic coma Complete Blood Count Auto Diff 06/14/24 B19.10 - Unspecified viral hepatitis B without hepatic coma Liver Fibrosis Pnl 06/14/24 B19.10 - Unspecified viral hepatitis B without hepatic coma Coding Level of Care Code Est Pt Level 3 (19068) Diagnoses Hepatitis B B19.10
== END 2024-06-14 12:22 | disposition home or self-care (01) ==
LOC: HO.HID 11:49
PROVIDERS: PCP Internal Medicine; Visit Provider Internal Medicine
DX: B19.10 Unspecified viral hepatitis B without hepatic coma (principal)
CPT/HCPCS: 99213

== ENCOUNTER → 2024-06-14 11:49 | Outpatient (BNVA) | payer MEDICARE, SELFPAY | PROVIDERS: PCP Internal Medicine; Visit Provider Internal Medicine | DX: B18.1 Chronic viral hepatitis B without delta-agent (principal) | CPT/HCPCS: 99212 ==

== ENCOUNTER → 2024-06-19 10:24 | Outpatient (REF) | payer MEDICARE, SELFPAY ==
--- NOTE | 2024-06-19 10:37 | HM_ITS ---
Conclusion: 1. Patient was monitored for total period of 3 days 2. Baseline was normal sinus rhythm with average heart of 84 beats per minute 3. No significant arrhythmias or pauses noted 4. No patient reported events MTDD
--- NOTE | 2024-06-19 10:37 | HM_ITS ---
Conclusion: 1. Patient was monitored for total period of 3 days 2. Baseline was normal sinus rhythm with average heart of 60 beats per minute 3. Rare PACs and PVCs noted without significant pauses 4. Patient marked the counter 4 times correlating with sinus rhythm MTDD
== END ==
LOC: HO.CARD 10:24
PROVIDERS: PCP Internal Medicine; Visit Provider Internal Medicine
DX: R00.2 Palpitations (principal)
CPT/HCPCS: 93242

== ENCOUNTER → 2024-06-19 10:37 | Outpatient (BNV) | payer MEDICARE, SELFPAY | PROVIDERS: PCP Internal Medicine; Visit Provider Internal Medicine Cardiovascular Disease | DX: I49.1 Atrial premature depolarization (principal); I49.3 Ventricular premature depolarization | CPT/HCPCS: 93244 ==

== ENCOUNTER 2024-10-10 13:41 | Outpatient (REF) | payer MEDICARE, SELFPAY ==
[2024-10-10 14:09] LABS: MANUAL DIFF FLAG NO
[2024-10-10 14:32] LABS: Basophils Percent Auto 0.5 % (0-2); Eosinophils Absolute Auto 0.2 X10*3/uL (0.0-0.4); Eosinophils Percent Auto 2.1 % (0-4); Hematocrit 38.5 % (37.0-47.0); Hemoglobin 12.8 g/dl (12.0-16.0); Imm Gran Abs Auto 0.02 X10*3/uL (0.00-0.03); Imm Gran Pct Auto 0.2 % (0.0-0.4); Lymphocytes Absolute Auto 2.9 X10*3/uL (1.2-4.9); Lymphocytes Percent Auto 36.6 % (20-40); Mean Corpuscular HGB Conc 33.2 g/dl (31.0-35.0); Mean Corpuscular Hemoglobin 27.7 pg (27.0-33.0); Mean Corpuscular Volume 83.3 fL (80.0-98.0); Mean Platelet Volume 10.1 fL (9.4-12.3); Monocytes Absolute Auto 0.4 X10*3/uL (0.1-1.2); Monocytes Percent Auto 4.5 % (2-11); Neutrophils Absolute Auto 4.5 x10*3/uL (2.0-8.3); Neutrophils Percent Auto 56.1 % (45-73); Platelet Count 251 X10*3/uL (160-400); Red Blood Count 4.62 X10*6/uL (4.20-5.50); Red Cell Distribution Width 13.2 % (11.0-16.0)
[2024-10-10 14:43] LABS: Prothrombin Time 11.3 SEC (10.9-12.4)
[2024-10-10 14:58] LABS: Alanine Aminotransferase 17 U/L (0-31); Albumin Level 3.7 g/dL (3.5-5.0); Alkaline Phosphatase 90 U/L (39-117); Anion Gap 11 (12-20); Aspartate Amino Transferase 30 U/L (5-31); Bilirubin Direct 0.1 mg/dL (0.0-0.5); Bilirubin Total 0.3 mg/dL (0.0-1.0); Blood Urea Nitrogen 13 mg/dL (9-16); C Reactive Protein 0.11 mg/dL (< or = 0.50); Calcium 8.6 mg/dL (8.4-10.2); Carbon Dioxide 28 mmol/L (22-29); Chloride 104 mmol/L (96-108); Estimated Glomerular Filt Rate > 60; Glucose Random 310 mg/dL (60-115); Magnesium 1.7 mg/dL (1.6-2.6); Potassium 3.7 mmol/L (3.3-5.1); Sodium 139 mmol/L (135-145); Total Protein 7.5 g/dL (6.5-8.0)
[2024-10-10 15:09] LABS: Erythrocyte Sedimentation Rate 23 MM/HR (0-20)
[2024-10-11 08:31] LABS: ~Hepatitis C Antibody Nonreactive (Nonreactive)
[2024-10-11 16:49] LABS: Hepatitis B Viral DNA Qn - cp NOT DETECTED Log IU/mL (NOT DETECTED); Hepatitis B Viral DNA Qn-IU/mL NOT DETECTED (NOT DETECTED)
[2024-10-14 19:38] LABS: Hepatitis Delta Antibody NEGATIVE
[2024-10-16 14:48] LABS: FIB-ALT 15 U/L (6-29); FIB-Alpha-2-Macroglobulin 301 mg/dL (106-279); FIB-Apolipoprotein A1 172 mg/dL (101-198); FIB-GGT 9 U/L (3-65); FIB-Haptoglobin 174 mg/dL (43-212); FIB-Total Bilirubin 0.3 mg/dL (0.2-1.2); Liver Fibrosis Score 0.14; Liver Fibrosis Stage F0; Nec Inflam Act Grade A0; Nec Inflam Act Score 0.04; Reference ID 5373779
== END 2024-10-10 13:42 | disposition home or self-care (01) ==
LOC: HO.LAB 13:41
PROVIDERS: Internal Medicine; Absent Provider Student in an Organized Health Care Education/Training Program; PCP Internal Medicine; Visit Provider Student in an Organized Health Care Education/Training Program
DX: M05.9 Rheumatoid arthritis with rheumatoid factor, unspecified (principal); Z79.899 Other long term (current) drug therapy; E87.8 Other disorders of electrolyte and fluid balance, not elsewhere classified; B19.10 Unspecified viral hepatitis B without hepatic coma
CPT/HCPCS: 36415; 80053; 80076; 81596; 82248; 83735; 85025; 85610; 85652; 86140; 86692; 86803; 87517

== ENCOUNTER 2024-11-20 09:20 | Outpatient (AMB) | payer MEDICARE, SELFPAY ==
--- NOTE | 2024-11-20 09:31 | A.OFFVIS_ITS ---
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 Allergies wasp bites Allergy (Intermediate, Uncoded 06/14/24 11:56) hives Medication List - Last Reconciled 11/20/24 by James Mercado MD atorvastatin 80 mg PO DAILY cholecalciferol (vitamin D3) (Vitamin D3) 25 mcg PO DAILY diclofenac sodium 1% (Voltaren Arthritis Pain) 2 grams topical BID duloxetine 20 mg PO BID epinephrine 0.3 mg IM Q4H PRN gabapentin 300 mg PO TID insulin aspart U-100 (Novolog FlexPen U-100 Insulin aspart) 4 - 6 units subcut TID insulin glargine (Lantus Solostar U-100 Insulin) 50 units (0.5 mL) subcut BID 90 days ketoconazole 2% 1 appl topical DAILY 30 days lisinopril 10 mg PO DAILY 90 days pen needle, diabetic (BD Ultra-Fine Yessi Pen Needle) As directed once daily sulfasalazine 1,500 mg (3 x 500 mg) PO BID trazodone 75 mg (1.5 x 50 mg) PO BEDTIME PRN HPI Comments Details: The patient is a 59-year-old female presenting with episodes of palpitations and sharp chest pains. She has been experiencing these sharp pains and sensations of heart racing intermittently over the past year, primarily at rest. The pain is described as a quick, sharp twinge occurring without exertion and lasting only a few seconds. No history of exertional pain or cardiac events is noted, though family history reveals her father suffered from multiple heart attacks. The patient's medical history includes diabetes mellitus, hypertension, hyperlipidemia, and rheumatoid arthritis, with long-standing treatment involving insulin, lisinopril, statins, and sulfasalazine. They have expressed concern over their symptoms, emphasizing their significant anxiety surrounding cardiac health, given their complex medical background. The events occur without relation to exertion, hinting at a non-cardiac origin, however, due consideration is given to her cardiovascular risk profile, necessitating diagnostic evaluation. Past Cardiac History - No previous cardiac events reported - Family history of myocardial infarctions (father) Exercise - Limited exercise due to joint and leg pain from rheumatoid arthritis - Only activity mentioned is walking, which causes discomfort PFSH Medical History Shoulder pain skilled nursing use of drug Myofascial pain Type 2 diabetes, uncontrolled, with nonproliferative retinopathy with macular edema Hypovitaminosis D Hepatitis B Depression Anxiety Fibromyalgia Rheumatoid arthritis Hyperlipidemia Hypertension Diabetes mellitus Surgical History H/O left breast biopsy H/O: knee surgery H/O oral surgery History of hysterectomy Family History Father CVD (cardiovascular disease) HTN (hypertension) Diabetes Brother CVD (cardiovascular disease) Mother Liver cancer Son Asthma Paternal Aunt HTN (hypertension) Diabetes Social History Household Members: Spouse Housing: House Alcohol intake: current Alcohol intake frequency: holidays/special occasions only Alcohol type: wine and hard liquor Patient Tobacco Use Status: Never used Tobacco e-Cigarette/Vaping Use: Never Used service: No Current occupational status: disabled Cognitive needs: No Hearing needs: No Vision needs: Yes Review of Systems Const Denies weakness ENT Denies dizziness Card Denies chest pain, Denies chest pain with activity, Denies syncope, Denies rapid heart rate, Denies pedal edema, Denies edema, Denies leg edema, Denies lightheadedness, Reports palpitations, Denies dyspnea, Denies dyspnea on exertion and Denies orthopnea Resp Denies cough, Denies dyspnea and Denies dyspnea on exertion GI Denies hematochezia and Denies change in stool character Musc Denies abnormal gait, Denies muscle cramps, Denies muscle weakness, Denies n umbness, Denies radiating pain into limb and Denies tingling Neuro Denies abnormal gait, Denies dizziness, Denies syncope, Denies numbness, Denies tingling and Denies weakness Endo Reports palpitations Physical Exam Vital Signs: Last Vital Signs Pulse 78 11/20/24 09:32 BP 122/62 11/20/24 09:32 BMI result Body Mass Index 24.2 Const General: comfortable and no acute distress Orientation/consciousness: patient oriented x3 HEENT Other: Unremarkable Head: Yes normal to inspection Neck Neck: Yes normal visual inspection Chest Chest palpation & inspection: normal inspection of the chest Resp Auscultation: clear to auscultation bilaterally Cardio Palpation: normal PMI Heart sounds: S1 normal heart sound present, S2 normal heart sound present, no gallops, no murmurs and no rubs GI Palpation (GI): Soft to palpation Back/Spine/Pelvis Other: unremarkable Skin General skin exam: no rashes or lesions noted Neuro General: patient oriented x3 Extrem General: Yes normal to inspection Psych Mental Status: mental status grossly normal Assessment & Plan Assessment & Plan (1) Precordial chest pain: Code(s): R07.2 - Precordial pain Category: Medical (2) Diabetes mellitus: Code(s): E11.9 - Type 2 diabetes mellitus without complications Category: Medical Qualifiers: Diabetes mellitus type: type 2 Diabetes mellitus manager long term care insulin use: with fdc use Diabetes mellitus complication status: with ophthalmic compl ications Diabetes mellitus complication detail: with diabetic retinopathy Diabetic retinopathy severity: with mild nonproliferative retinopathy Diabetes mellitus macular edema: with macular edema Laterality: unspecified laterality Qualified Code(s): E11.3219 - Type 2 diabetes mellitus with mild nonproliferative diabetic retinopathy with macular edema, unspecified eye; Z79.4 - oil heaterman (current) use of insulin (3) Hypertension: Code(s): I10 - Essential (primary) hypertension Category: Medical Qualifiers: Hypertension type: essential hypertension Qualified Code(s): I10 - Essential (primary) hypertension (4) Hyperlipidemia: Code(s): E78.5 - Hyperlipidemia, unspecified Category: Medical Qualifiers: Hyperlipidemia type: pure hypercholesterolemia Qualified Code(s): E78.00 - Pure hypercholesterolemia, unspecified (5) Seropositive rheumatoid arthritis: Comment: onset about 2009+RF -ve CCP hydroxychloroquine stopped due to diabetic retinoapathy. methotrexate stopped due to hep B viremia. on chronic sulfasalazine. Kevzara and Rinvoq not approved. SSZ increased to 3 g daily 09/2023 Code(s): M05.9 - Rheumatoid arthritis with rheumatoid factor, unspecified Category: Medical Plan Prior EKG with underlying sinus rhythm at 96/Min; no ischemic changes; corrected QT is prolonged at 480 milliseconds. Holter monitor shows underlying sinus rhythm with an average rate of 84/Min. No significant arrhythmias. I plan to conduct a stress test and cardiac ultrasound to evaluate the cause of the patient?s palpitations and chest pain. This is to be thorough given her multiple risk factors from diabetes, hypertension, and hyperlipidemia. The likelihood of a cardiac origin is low as per the symptom description, happening at rest; however, given their anxiety and concern due to her familial history, these investigations are warranted. It is important to emphasize ongoing management of her existing illnesses and assess her response to current therapy. I have communicated to her about the nature of these tests, ensuring she is comfortable with proceeding. Patient was informed and verbally consented to the use of an ambient scribe for clinic note documentation during this visit. Discussion Notes I discussed with the patient that while her episodes are less likely to be cardiac-related due to their occurrence at rest, an evaluation is necessary given her risk profile. I explained the rationale for the stress test and cardiac ultrasound to rule out cardiac ischemia or structural abnormality. We reviewed the safety and non-invasive nature of these tests. The patient was informed about the potential waiting period to schedule the tests and was advised to seek medical attention should symptoms worsen. I assured her of minimal risk associated with these diagnostic procedures, with the aim to provide her clarity and reassurance regarding her symptoms and ensure comprehensive care. Orders: Orders CA echo transthoracic complete Today R07.2 - Precordial pain CA stress test Today R07.2 - Precordial pain NM cardiolite stress test Today R07.2 - Precordial pain Patient Instructions: - Schedule and complete the stress test and cardiac ultrasound as discussed - Continue medications for diabetes, hypertension, cholesterol, and rheumatoid arthritis as prescribed - Monitor symptoms and seek medical help if palpitations or pain becomes severe or changes in nature - Maintain regular follow-ups to manage chronic conditions like diabetes and hypertension effectively Coding Level of Care Code New Pt Level 4 (25834) Diagnoses Precordial chest pain R07.2 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, with long-term current use of insulin, unspecified laterality E11.3219; Z79.4 Diabetes mellitus type: type 2 Diabetes mellitus manager long term care insulin use: with manager long term care use Diabetes mellitus complication status: with ophthalmic complications Diabetes mellitus complication detail: with diabetic retinopathy Diabetic retinopathy severity: with mild nonproliferative retinopathy Diabetes mellitus macular edema: with macular edema Laterality: unspecified laterality Essential hypertension I10 Hypertension type: essential hypertension Pure hypercholesterolemia E78.00 Hyperlipidemia type: pure hypercholesterolemia Seropositive rheumatoid arthritis M05.9
[2024-11-20 09:32] VITALS: BP 122/62; PULSE 78; BMI 24.2
== END 2024-11-20 09:56 | disposition home or self-care (01) ==
LOC: HO.HCS 09:21
PROVIDERS: PCP Internal Medicine; Visit Provider Internal Medicine
DX: R07.2 Precordial pain (principal); E11.3219 Type 2 diabetes mellitus with mild nonproliferative diabetic retinopathy with macular edema, unspecified eye; Z79.4 Long term (current) use of insulin; I10 Essential (primary) hypertension; E78.00 Pure hypercholesterolemia, unspecified; M05.9 Rheumatoid arthritis with rheumatoid factor, unspecified
CPT/HCPCS: 99204

== ENCOUNTER → 2024-11-20 09:20 | Outpatient (BNVA) | payer MEDICARE, SELFPAY | PROVIDERS: PCP Internal Medicine; Visit Provider Internal Medicine | DX: R07.2 Precordial pain (principal); I10 Essential (primary) hypertension; E11.3219 Type 2 diabetes mellitus with mild nonproliferative diabetic retinopathy with macular edema, unspecified eye; E78.00 Pure hypercholesterolemia, unspecified; M05.9 Rheumatoid arthritis with rheumatoid factor, unspecified; Z79.4 Long term (current) use of insulin | CPT/HCPCS: 99202 ==

== ENCOUNTER → 2025-01-18 08:03 | Outpatient (REF) | payer MEDICARE, SELFPAY ==
--- NOTE | 2025-01-18 08:05 | CA_ITS ---
Transthoracic Echocardiogram Patient (Last, First, Middle): Maddy Erwin B Gender: Female Date of : 1965 Age: 59 Procedure Date: 01/18/2025 Procedure Type: Transthoracic Echocardiogram Location: OP Height: 170.18 cm Weight: 69.85 kg BSA: 1.81 m2 Heart Rate: bpm BP: 122 / 62 mmHg Cloth Reeler: SILAS Referring MD: James Mercado MD Application Engineer: William Carrillo MD Symptoms: R07.2 - Precordial pain Study Quality: Adequate ECG Rhythm: Sinus Conclusions: - 1. Normal LV ejection fraction of 60 65% with impaired relaxation filling pattern 2. Mild calcific mitral valve changes noted with normal cardiac valvular Dopplers 3. Normal RV systolic pressure 4. No gross pericardial effusion Findings Left Ventricle Normal left ventricular size, thickness, and systolic function. The visually estimated ejection fraction is between 60-65%. Spectral Doppler is indicative of an impaired relaxation filling pattern. E/E prime ratio is between 8 and 15 consistent with indeterminate filling pressures. Right Ventricle Normal right ventricular cavity size and systolic function. Atria Both atria are normal in size. There is no evidence of interatrial shunt. Aortic Valve Normal aortic valve structure and function. There is no aortic valve stenosis. There is no aortic valve regurgitation. Mitral Valve Normal mitral valve structure and function. There is mild mitral annular calcification. There is trace mitral valve regurgitation. There is no mitral valve stenosis. Pulmonic Valve The pulmonic valve is likely normal. Tricuspid Valve Normal tricuspid valve structure. There is trace tricuspid valve regurgitation. The right ventricular systolic pressure is normal. The right ventricular systolic pressure is 22 mmHg. Normal right atrial pressure. There is no evidence of pulmonary hypertension. Great Vessels All visible segments of the aorta are normal in size. The pulmonary artery was not well visualized. There is no dilatation of the ascending aorta measuring 3.20 cm. Venous The inferior vena cava is normal in size and collapses greater than 50% with inspiration. Pericardium/Pleural There is no evidence of pericardial effusion. Prior Study Comparison No prior study available for comparison. Measurements 2D Linear Measurements IVSd: 1.04 0.6-0.9/0.6-1.0 cm LVIDd: 3.71 3.9-5.3/4.2-5.9 cm LVIDd Index: 2.05 2.4-3.2/2.2-3.1 cm/m2 LVIDs: 2.38 2.0-3.6 cm LVPWd: 0.92 0.7-1.1 cm LA Diam: 2.60 2.7-3.8/3.0-4.0 cm LAIDs Index: 1.44 1.5-2.3 cm/m2 LV Mass: 136.37 67-162/88-224 g LV Mass Index: 75.34 43-95/49-115 g/m2 LVOT Diam: 2.00 3.0+(-)1.3 cm 2D Systolic Function EF 4C: 60.50 >55% EF 2C: 61.10 >55% EF BiP: 62.60 >55% Mitral Valve MV Pk E: 0.92 MV PK A: 0.91 MV Decel Time: 246.00 E/A: 1.00 E'Lateral: 6.85 E'Medial: 5.87 E/E' Med: 15.70 E/E' Lat: 13.40 PHT: 72.00 MVA PHT: 3.06 Decel [place]: 3.75 Aortic Valve AoV Pk Eric: 1.43 AoV Mn Eric: 1.02 AoV VTI: 0.32 AoV Pk Grad: 8.00 Aov Mn Grad: 5.00 STEPHANIE Cont.VTI: 2.04 LVOT LVOT Pk Eric: 0.81 LVOT Mn Eric: 0.55 LVOT VTI: 0.21 LVOT Pk Grad: 3.00 LVOT Mn Grad: 1.00 LVOT Diam: 2.00 LVOT Area: 3.14 Diastolic Function MV Pk E: 0.92 MV Pk A: 0.91 E/A: 1.00 E'Medial: 5.87 E/E' Med: 15.70 E' Laterial: 6.85 E/E' Lat: 13.40 Right Ventricle TAPSE (mm): 18.20 TVS' Eric: 9.79 Tricuspid Valve TR Pk Eric: 2.20 TR Pk Grad: 19.00 RA Press: 3.00 RVSP: 22.00 Great Vessels Aorta Sinus of Valsalva: 2.74 2.0-3.[address] [place]: 1.81 1.7-3.4 cm Ao Asc: 3.20 2.1-3.4 cm Ao Arch: 2.80 Updated in Other Vendor System with Status of Final William Carrillo MD electronically signed on 01/19/2025 3:03:23 PM with status of Final
== END ==
LOC: HO.CARD 08:03
PROVIDERS: PCP Internal Medicine; Visit Provider Internal Medicine
DX: R07.2 Precordial pain (principal)
CPT/HCPCS: 93306

== ENCOUNTER → 2025-01-18 08:05 | Outpatient (BNV) | payer MEDICARE, SELFPAY | PROVIDERS: PCP Internal Medicine; Visit Provider Internal Medicine Cardiovascular Disease | DX: R07.2 Precordial pain (principal) | CPT/HCPCS: 93306 ==

== ENCOUNTER 2025-01-26 11:08 | Outpatient (AMB) | payer MEDICARE, SELFPAY ==
[2025-01-26 11:09] VITALS: BP 124/80; PULSE 81; RESP 15; TEMP 36.7; O2SAT 99; BMI 23.8
--- NOTE | 2025-01-26 11:09 | MHC.PC.OV ---
Vital Signs 01/26/25 11:09 Height 5 ft 7 in Weight 152 lb BMI 23.8 BP 124/80 Blood Pressure Location Rt brachial Position Sitting Respiration 15 Pulse 81 Pulse Source Pulse Oximeter Temp 98.1 F Temp Source Oral Pulse Oximetry (%) 99 Oxygen Delivery Method Room Air Intake Visit Reasons: General health Allergies wasp bites Allergy (Intermediate, Uncoded 01/26/25 11:10) hives Medication List - Last Reconciled 01/26/25 by Vadim Sal MD atorvastatin 80 mg PO DAILY cholecalciferol (vitamin D3) (Vitamin D3) 25 mcg PO DAILY diclofenac sodium 1% (Voltaren Arthritis Pain) 2 grams topical BID duloxetine 20 mg PO BID epinephrine 0.3 mg IM Q4H PRN gabapentin 300 mg PO TID insulin aspart U-100 (Novolog FlexPen U-100 Insulin aspart) 4 - 6 units subcut TID insulin glargine (Lantus Solostar U-100 Insulin) 50 units (0.5 mL) subcut BID 90 days ketoconazole 2% 1 appl topical DAILY 30 days lisinopril 10 mg PO DAILY 90 days pen needle, diabetic (BD Ultra-Fine Yessi Pen Needle) As directed once daily trazodone 75 mg (1.5 x 50 mg) PO BEDTIME PRN Tobacco use date assessed: 01/26/25 Dental Screening Dental Screen Date: 01/26/25 Did you have a dental visit in the last 12 months?: No Did you have a dental problem in the last 6 months where you did not have access to dental care?: No Was dental information given to patient?: Patient has dentist HPI General health HPI Details History - The patient is a 59-year-old female presenting with a regular follow-up appointment to manage chronic conditions and review recent test results. - Anxiety: The patient reports ongoing anxiety, which she attributes to personal stressors, including her daughter's medical condition. - Palpitations: The patient experiences palpitations, which she believes are related to her anxiety. An echocardiogram showed normal ejection fraction and no significant cardiac issues. - Insomnia: The patient has difficulty sleeping, with periods of both good and poor sleep. She has been taking trazodone but ran out and reports not sleeping well without it. - Type 2 Diabetes Mellitus: The patient's blood glucose levels are generally well-controlled, with occasional spikes due to dietary indiscretions. - Hypertension: The patient is on lisinopril 10 mg, and her blood pressure is well-controlled. - Hyperlipidemia: The patient is on atorvastatin for lipid control. - Depression: The patient is taking duloxetine, which helps with both depression and pain management. - Preventative care: The patient is due for a follow-up with a practice management consultant and has not seen an SENIOR INDUSTRIAL ENGINEER in years following a partial hysterectomy. Problem List - Anxiety - Palpitations - Insomnia - Type 2 Diabetes Mellitus - Hypertension - Hyperlipidemia - Depression - Preventative care: Follow-up with practice management consultant Patient Instructions - Start taking Seroquel 25 mg for sleep, beginning with half a tablet for the first week. Stop trazodone - Refill and continue lisinopril, vitamin D, and gabapentin as prescribed. Gabapentin is through Rheumatology - Schedule and attend follow-up appointments with the practice management consultant and SENIOR INDUSTRIAL ENGINEER. - Monitor blood glucose levels and maintain a balanced diet to manage diabetes. - Expect a call in three weeks to discuss the response to Seroquel. Review of Systems - General: No fever no chills - Neurological: No headaches no dizziness - Ear nose throat: No sore throat no hearing difficulty no ear pain - Cardiovascular: No syncope, no chest pain, no palpitations - Gastrointestinal: No nausea vomiting or diarrhea - Endocrine: No polyuria polydipsia no heat intolerance - Genitourinary: No dysuria , no blood in urine Physical Exam General: No acute distress HEENT: No acute findings Neck: Supple Respiratory system: Lungs are clear, able to talk in full sentences, no audible wheeze Cardiovascular: S1-S2 regular in rate and rhythm,y Gastrointestinal: No pain Extremities: No new findings, no swelling : Alert awake oriented x3 motor sensory intact Skin: Normal turgor PFSH Medical History Shoulder pain [facility] use of drug Myofascial pain Type 2 diabetes, uncontrolled, with nonproliferative retinopathy with macular edema Hypovitaminosis D Hepatitis B Depression Anxiety Fibromyalgia Rheumatoid arthritis Hyperlipidemia Hypertension Diabetes mellitus Surgical History H/O left breast biopsy H/O: knee surgery H/O oral surgery History of hysterectomy Family History Father CVD (cardiovascular disease) HTN (hypertension) Diabetes Brother CVD (cardiovascular disease) Mother Liver cancer Son Asthma Paternal Aunt HTN (hypertension) Diabetes Social History Household Members: Spouse Housing: House Alcohol intake: current Alcohol intake frequency: holidays/special occasions only Alcohol type: wine and hard liquor Patient Tobacco Use Status: Never used Tobacco e-Cigarette/Vaping Use: Never Used service: No Current occupational status: disabled Cognitive needs: No Hearing needs: No Vision needs: Yes Questionnaire PHQ-9 Over the last 2 weeks, how often have you been bothered by any of the following problems? 1. Little interest or pleasure in doing things: several days 2. Feeling down, depressed, or hopeless: more than half the days 3. Trouble falling or staying asleep, or sleeping too much: nearly every day 4. Feeling tired or having little energy: more than half the days 5. Poor appetite or overeating: not at all 6. Feeling bad about yourself - or that you are a failure or have let yourself or your family down: not at all 7. Trouble concentrating on things, such as reading the newspaper or watching television: nearly every day 8. Moving or speaking so slowly that other people could have noticed. Or the opposite - being so fidgety or restless that you have been moving around a lot more than usual: several days 9. Thoughts that you would be better off or of hurting yourself in some way: not at all Total score: 12 Depression Screening Interpretation: Positive Depression Screening Follow-up: In treatment Depression Screening Done: Yes [id number] - PHQ-9 Billing: Yes Source: Developed by Drs. Darell Mina, Marjan Connolly, Sascha Thompson and colleagues, with an educational jameel from [employer]. Thrive Questionnaire Date Thrive assessed: 01/26/25 I am a: Patient What is your living situation today?: I have a steady place to live Within the past 12 months, did the food you bought not last and you didn't have the money to get more?: Sometimes True Within the past 12 months, did you worry whether your food would run out before you got money to buy more?: Sometimes True Do you have trouble paying for medicines?: Yes Do you have trouble getting transportation to medical appointments?: No Do you have trouble paying your heating and electricity bill?: No Do you have trouble taking care of your child, family member or friend?: No Do you have trouble with day-to-day activities such as bathing, preparing meals, shopping, managing finances, etc.?: No Are you currently unemployed and looking for a job?: No Are you interested in more education?: No Please select the resources that you would like help with: Paying for medicine Currently or been in a relationship where the following occur: No concerns reported THRIVE Score: 2 AUDIT C Alcohol Use Questionnaire (AUDIT-C) 1. How often do you have a drink containing alcohol?: Monthly or less 2. How many drinks containing alcohol do you have on a typical day when you are drinking?: 1 or 2 3. How often do you have six or more drinks on one occasion?: Never Total Score: 1 LIZZY-7 AMB Questionnaire LIZZY-7 Date LIZZY - 7 assessed: 01/26/25 Feeling nervous, anxious, or on edge: 3 = Nearly every day Not being able to stop or control worryin = Nearly every day Worrying too much about different things: 3 = Nearly every day Trouble relaxin = Nearly every day Being so restless that it is hard to sit still: 3 = Nearly every day Becoming easily annoyed or irritable: 3 = Nearly every day Feeling afraid as if something awful might happen: 3 = Nearly every day Total LIZZY-7 score (0-4 normal; 5-9 mild; 10-14 moderate; 15-21 severe): 21 Source: Developed by Drs. Darlel Mina, Marjan Connolly, Sascha Thompson and colleagues, with an educational jameel from [employer]. Physical exam (Primary Care) Vital Signs: Last Vital Signs Temp 98.1 F 01/26/25 11:09 Pulse 81 01/26/25 11:09 Resp 15 01/26/25 11:09 BP 124/80 01/26/25 11:09 Pulse Ox 99 01/26/25 11:09 Oxygen Delivery Method Room Air 01/26/25 11:09 BMI result Body Mass Index 23.8 Tobacco/Smoking Status: Tobacco use Status Tobacco use date assessed 01/26/25 01/26/25 11:11 Patient Tobacco Use Status Never used Tobacco 01/26/25 11:11 e-Cigarette/Vaping Use Never Used 01/26/25 11:11 PHQ-9: PHQ-9 Score PHQ-9: Total score 12 01/26/25 11:36 Depression Screening Interpretation: Positive Depression Screening Follow-up: In treatment Thrive Assessment: Date of Thrive Assessment Date Thrive assessed 01/26/25 01/26/25 11:11 Currently or been in a relationship where the following occur: No concerns reported Coding Level of Care Code Est Pt Level 4 (50214) Complex EM visit Add On G2211 Diagnoses Essential hypertension I10 Hypertension type: essential hypertension 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, with long-term current use of insulin, unspecified laterality E11.3219; Z79.4 Diabetes mellitus complication detail: with diabetic retinopathy Diabetes mellitus complication status: with ophthalmic complications Diabetes mellitus long term care phlebotomist insulin use: with long term care phlebotomist use Diabetes mellitus macular edema: with macular edema Diabetes mellitus type: type 2 Diabetic retinopathy severity: with mild nonproliferative retinopathy Laterality: unspecified laterality Anxiety, generalized F41.1 Pure hypercholesterolemia E78.00 Hyperlipidemia type: pure hypercholesterolemia Palpitations R00.2 [facility] (current) use of insulin Z79.4 Hypovitaminosis D E55.9 Seropositive rheumatoid arthritis M05.9 Chronic pain syndrome G89.4 Additional Codes PHQ-9 - 47669 - PHQ-9 Billing: Yes ([id number]) Assessment & Plan Assessment & Plan (1) Hypertension: Code(s): I10 - Essential (primary) hypertension Category: Medical Qualifiers: Hypertension type: essential hypertension Qualified Code(s): I10 - Essential (primary) hypertension (2) Diabetes mellitus: Code(s): E11.9 - Type 2 diabetes mellitus without complications Category: Medical Qualifiers: Diabetes mellitus complication detail: with diabetic retinopathy Diabetes mellitus complication status: with ophthalmic complications Diabetes mellitus long term care phlebotomist insulin use: with usp use Diabetes mellitus macular edema: with macular edema Diabetes mellitus type: type 2 Diabetic retinopathy severity: with mild nonproliferative retinopathy Laterality: unspecified laterality Qualified Code(s): E11.3219 - Type 2 diabetes mellitus with mild nonproliferative diabetic retinopathy with macular edema, unspecified eye; Z79.4 - [facility] (current) use of insulin (3) Anxiety, generalized: Code(s): F41.1 - Generalized anxiety disorder Category: Medical (4) Hyperlipidemia: Code(s): E78.5 - Hyperlipidemia, unspecified Category: Medical Qualifiers: Hyperlipidemia type: pure hypercholesterolemia Qualified Code(s): E78.00 - Pure hypercholesterolemia, unspecified (5) Palpitations: Code(s): R00.2 - Palpitations Category: Medical (6) intermediate frame tender (current) use of insulin: Code(s): Z79.4 - [facility] (current) use of insulin Category: Medical (7) Hypovitaminosis D: Code(s): E55.9 - Vitamin D deficiency, unspecified Category: Medical (8) Seropositive rheumatoid arthritis: Comment: onset about 2009 ++RF -ve CCP hydroxychloroquine stopped due to diabetic retinoapathy. methotrexate stopped due to hep B viremia. on chronic sulfasalazine. Kevzara and Rinvoq not approved. SSZ increased to 3 g daily 09/2023 Code(s): M05.9 - Rheumatoid arthritis with rheumatoid factor, unspecified Category: Medical (9) Chronic pain syndrome: Code(s): G89.4 - Chronic pain syndrome Category: Medical Plan History - The patient is a 59-year-old female presenting with a regular follow-up appointment to manage chronic conditions and review recent test results. - Anxiety: The patient reports ongoing anxiety, which she attributes to personal stressors, including her daughter's medical condition. - Palpitations: The patient experiences palpitations, which she believes are related to her anxiety. An echocardiogram showed normal ejection fraction and no significant cardiac issues. - Insomnia: The patient has difficulty sleeping, with periods of both good and poor sleep. She has been taking trazodone but ran out and reports not sleeping well without it. - Type 2 Diabetes Mellitus: The patient's blood glucose levels are generally well-controlled, with occasional spikes due to dietary indiscretions. - Hypertension: The patient is on lisinopril 10 mg, and her blood pressure is well-controlled. - Hyperlipidemia: The patient is on atorvastatin for lipid control. - Depression: The patient is taking duloxetine, which helps with both depression and pain management. - Preventative care: The patient is due for a follow-up with a practice management consultant and has not seen an SENIOR INDUSTRIAL ENGINEER in years following a partial hysterectomy. Problem List - Anxiety - Palpitations - Insomnia - Type 2 Diabetes Mellitus - Hypertension - Hyperlipidemia - Depression - Preventative care: Follow-up with practice management consultant - seropositive rheumatoid arthritis treatment through Rheumatology Patient Instructions - Start taking Seroquel 25 mg for sleep, beginning with half a tablet for the first week. Stop trazodone - Refill and continue lisinopril, vitamin D, and gabapentin as prescribed. Gabapentin is through Rheumatology - Schedule and attend follow-up appointments with the practice management consultant and SENIOR INDUSTRIAL ENGINEER. - Monitor blood glucose levels and maintain a balanced diet to manage diabetes. - Expect a call in three weeks to discuss the response to Seroquel. Review of Systems - General: No fever no chills - Neurological: No headaches no dizziness - Ear nose throat: No sore throat no hearing difficulty no ear pain - Cardiovascular: No syncope, no chest pain, no palpitations - Gastrointestinal: No nausea vomiting or diarrhea - Endocrine: No polyuria polydipsia no heat intolerance - Genitourinary: No dysuria , no blood in urine Physical Exam General: No acute distress HEENT: No acute findings Neck: Supple Respiratory system: Lungs are clear, able to talk in full sentences, no audible wheeze Cardiovascular: S1-S2 regular in rate and rhythm,y Gastrointestinal: No pain Extremities: No new findings, no swelling : Alert awake oriented x3 motor sensory intact Skin: Normal turgor Orders: Orders Complete Blood Count Auto Diff 3 Months - Type 2 diabetes mellitus with mild nonproliferative diabetic retinopathy with macular edema, unspecified eye, E55.9 - Vitamin D deficiency, unspecified, E78.00 - Pure hypercholesterolemia, unspecified, F41.1 - Generalized anxiety disorder, G89.4 - Chronic pain syndrome, I10 - Essential (primary) hypertension, M05.9 - Rheumatoid arthritis with rheumatoid factor, unspecified, R00.2 - Palpitations, Z79.4 - intermediate frame tender (current) use of insulin Vitamin D 25-OH (D2 and D3) 3 Months - Type 2 diabetes mellitus with mild nonproliferative diabetic retinopathy with macular edema, unspecified eye, E55.9 - Vitamin D deficiency, unspecified, E78.00 - Pure hypercholesterolemia, unspecified, F41.1 - Generalized anxiety disorder, G89.4 - Chronic pain syndrome, I10 - Essential (primary) hypertension, M05.9 - Rheumatoid arthritis with rheumatoid factor, unspecified, R00.2 - Palpitations, Z79.4 - intermediate frame tender (current) use of insulin Comprehensive [place]. Panel Fast 3 Months .3218 - Type 2 diabetes mellitus with mild nonproliferative diabetic retinopathy with macular edema, unspecified eye, E55.9 - Vitamin D deficiency, unspecified, E78.00 - Pure hypercholesterolemia, unspecified, F41.1 - Generalized anxiety disorder, G89.4 - Chronic pain syndrome, I10 - Essential (primary) hypertension, M05.9 - Rheumatoid arthritis with rheumatoid factor, unspecified, R00.2 - Palpitations, Z79.4 - [facility] (current) use of insulin Lipid Panel 3 Months - Type 2 diabetes mellitus with mild nonproliferative diabetic retinopathy with macular edema, unspecified eye, E55.9 - Vitamin D deficiency, unspecified, E78.00 - Pure hypercholesterolemia, unspecified, F41.1 - Generalized anxiety disorder, G89.4 - Chronic pain syndrome, I10 - Essential (primary) hypertension, M05.9 - Rheumatoid arthritis with rheumatoid factor, unspecified, R00.2 - Palpitations, Z79.4 - intermediate frame tender (current) use of insulin Vitamin B12 3 Months - Type 2 diabetes mellitus with mild nonproliferative diabetic retinopathy with macular edema, unspecified eye, E55.9 - Vitamin D deficiency, unspecified, E78.00 - Pure hypercholesterolemia, unspecified, F41.1 - Generalized anxiety disorder, G89.4 - Chronic pain syndrome, I10 - Essential (primary) hypertension, M05.9 - Rheumatoid arthritis with rheumatoid factor, unspecified, R00.2 - Palpitations, Z79.4 - intermediate frame tender (current) use of insulin Hemoglobin A1c 3 Months - Type 2 diabetes mellitus with mild nonproliferative diabetic retinopathy with macular edema, unspecified eye, E55.9 - Vitamin D deficiency, unspecified, E78.00 - Pure hypercholesterolemia, unspecified, F41.1 - Generalized anxiety disorder, G89.4 - Chronic pain syndrome, I10 - Essential (primary) hypertension, M05.9 - Rheumatoid arthritis with rheumatoid factor, unspecified, R00.2 - Palpitations, Z79.4 - intermediate frame tender (current) use of insulin Microalbumin, Random (w Creat) 3 Months - Type 2 diabetes mellitus with mild nonproliferative diabetic retinopathy with macular edema, unspecified eye, E55.9 - Vitamin D deficiency, unspecified, E78.00 - Pure hypercholesterolemia, unspecified, F41.1 - Generalized anxiety disorder, G89.4 - Chronic pain syndrome, I10 - Essential (primary) hypertension, M05.9 - Rheumatoid arthritis with rheumatoid factor, unspecified, R00.2 - Palpitations, Z79.4 - [facility] (current) use of insulin Referrals SENIOR INDUSTRIAL ENGINEER Referral Z01.419 - Encounter for gynecological examination (general) (routine) without abnormal findings Medications: New quetiapine (Seroquel) 25 mg PO BEDTIME 30 tabs 0RF Refilled lisinopril 10 mg PO DAILY 90 tabs 1RF 90 days I10 - Essential (primary) hypertension cholecalciferol (vitamin D3) (Vitamin D3) 25 mcg PO DAILY 90 caps 3RF Discontinued trazodone Discontinued Reason: Doctor's Order 75 mg (1.5 x 50 mg) PO BEDTIME PRN 135 tabs 1RF for insomnia
== END 2025-01-26 11:35 | disposition home or self-care (01) ==
LOC: HO.HMCC 11:09
PROVIDERS: PCP Internal Medicine; Visit Provider Internal Medicine
DX: I10 Essential (primary) hypertension (principal); E11.3219 Type 2 diabetes mellitus with mild nonproliferative diabetic retinopathy with macular edema, unspecified eye; Z79.4 Long term (current) use of insulin; M05.9 Rheumatoid arthritis with rheumatoid factor, unspecified; F41.1 Generalized anxiety disorder; E78.00 Pure hypercholesterolemia, unspecified; R00.2 Palpitations; E55.9 Vitamin D deficiency, unspecified; G89.4 Chronic pain syndrome

== ENCOUNTER → 2025-01-26 11:08 | Outpatient (BNVA) | payer MEDICARE, SELFPAY | PROVIDERS: PCP Internal Medicine; Visit Provider Internal Medicine | DX: I10 Essential (primary) hypertension (principal); E11.3219 Type 2 diabetes mellitus with mild nonproliferative diabetic retinopathy with macular edema, unspecified eye; F41.1 Generalized anxiety disorder; E78.00 Pure hypercholesterolemia, unspecified; R00.2 Palpitations; E55.9 Vitamin D deficiency, unspecified; M05.9 Rheumatoid arthritis with rheumatoid factor, unspecified; G89.4 Chronic pain syndrome; Z79.4 Long term (current) use of insulin | CPT/HCPCS: 96127; 99212 ==

== ENCOUNTER 2025-02-05 10:38 | Outpatient (REF) | payer MEDICARE, SELFPAY | END 2025-02-05 10:39 | disposition home or self-care (01) | LOC: HO.MAMMO 10:38 | PROVIDERS: PCP Internal Medicine; Visit Provider Internal Medicine | DX: Z12.31 Encounter for screening mammogram for malignant neoplasm of breast (principal) | CPT/HCPCS: 77063; 77067 ==

== ENCOUNTER → 2025-02-05 11:00 | Outpatient (BNV) | payer MEDICARE, SELFPAY | PROVIDERS: PCP Internal Medicine; Visit Provider Internal Medicine | DX: Z12.31 Encounter for screening mammogram for malignant neoplasm of breast (principal) | CPT/HCPCS: 77063; 77067 ==

== ENCOUNTER 2025-03-27 08:38 | Outpatient (AMB) | payer MEDICARE, SELFPAY ==
[2025-03-27 08:44] VITALS: BP 122/72; PULSE 84; O2SAT 98; BMI 23.7
--- NOTE | 2025-03-27 08:44 | A.OFFVIS_ITS ---
Vital Signs 03/27/25 08:44 Height 5 ft 7 in Weight 151 lb 4 oz BMI 23.7 BP 122/72 Blood Pressure Location Lt brachial Position Sitting Pulse 84 Pulse Source Pulse Oximeter Pulse Oximetry (%) 98 Oxygen Delivery Method Room Air Intake Visit Reasons: RA Intake Note: Patient presents for follow up on RA. Patient is requesting refill of her Gabapentin today. Allergies wasp bites Allergy (Intermediate, Uncoded 03/27/25 08:48) hives Medication List - Last Reconciled 03/27/25 by Lida Maher MD atorvastatin 80 mg PO DAILY cholecalciferol (vitamin D3) (Vitamin D3) 25 mcg PO DAILY diclofenac sodium 1% (Voltaren Arthritis Pain) 2 grams topical BID duloxetine 20 mg PO BID epinephrine 0.3 mg IM Q4H PRN gabapentin 300 mg PO TID insulin aspart U-100 (Novolog FlexPen U-100 Insulin aspart) 4 - 6 units subcut TID insulin glargine (Lantus Solostar U-100 Insulin) 50 units (0.5 mL) subcut BID 90 days ketoconazole 2% 1 appl topical DAILY 30 days lisinopril 10 mg PO DAILY 90 days pen needle, diabetic (BD Ultra-Fine Yessi Pen Needle) As directed once daily quetiapine (Seroquel) 25 mg PO BEDTIME HPI Comments Details: Patient is a 59 year old female with HLD, DM, HTN, anxiety, chronic hepatitis B, seropositive RA and fibromyalgia here today for follow up Interval History: Patient last seen 04/05/[address] Liz - On SSZ, duloxetine, gabapentin - Doing well overall - Complained about right knee pain, known OA - No changes made to medications Today, - On SSZ, duloxetine, gabapentin - Continues to do well - Still has right knee pain Rheumatologic History: Seropositive RA onset about 2009 ++RF -ve CCP hydroxychloroquine stopped due to diabetic retinoapathy. methotrexate stopped due to hep B viremia. on chronic sulfasalazine. Kevzara and Rinvoq not approved. 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 Myofascial pain Type 2 diabetes, uncontrolled, with nonproliferative retinopathy with macular edema Hypovitaminosis D Hepatitis B Depression Anxiety Fibromyalgia Rheumatoid arthritis Hyperlipidemia Hypertension Diabetes mellitus Surgical History H/O left breast biopsy H/O: knee surgery H/O oral surgery History of hysterectomy Family History Father CVD (cardiovascular disease) HTN (hypertension) Diabetes Brother CVD (cardiovascular disease) Mother Liver cancer Son Asthma Paternal Aunt HTN (hypertension) Diabetes Social History Household Members: Spouse Housing: House Alcohol intake: current Alcohol intake frequency: holidays/special occasions only Alcohol type: wine and hard liquor Patient Tobacco Use Status: Never used Tobacco e-Cigarette/Vaping Use: Never Used service: No Current occupational status: disabled Cognitive needs: No Hearing needs: No Vision needs: Yes Review of Systems Const Details: Review of Systems Constitutional: Denies fever, chills, weight loss ENT: Denies vision changes, eye pain or eye redness, dental caries, dry mouth GI: Denies nausea, vomiting, diarrhea, abdominal pain, change in BM Pulm: Denies SOB, ANDRADE, hemoptysis, wheezing Cards: Denies chest pain, palpitations Skin: Denies Raynaud's, rash, nail changes, photosensitivity, 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 Well appearing and in no apparent painful distress HEENT Conjunctiva and sclera clear. No lymphadenopathy. MSK Hands * Right Hand: Able to make a fist. No swelling or tenderness to palpation of these joints. * Left Hand: Able to make a fist. No swelling or tenderness to palpation of these joints. * Herbedens nodes noted bilaterally Wrists * Right Wrist: Full ROM. 70 degrees of wrist flexion, 80 degrees of wrist extension. No swelling or TTP * Left Wrist: Full ROM. 70 degrees of wrist flexion, 80 degrees of wrist extension. No swelling or TTP Elbows * Right Elbow: Full ROM. No swelling or TTP. No TTP of the medial and lateral epicondyles * Left Elbow: Full ROM. No swelling or TTP. No TTP of the medial and lateral epicondyles Shoulders * Right shoulder: Full ROM. No swelling noted. No TTP of the AC joint, subacromial bursa or posterior shoulder * Left shoulder: Full ROM. No swelling noted. No TTP of the AC joint, subacromial bursa or posterior shoulder Knees * Right knee: Full ROM. No swelling noted. No TTP of the knee joint lie or pes anserine bursa * Left knee: Full ROM. No swelling noted. No TTP of the knee joint lie or pes anserine bursa. * Crepitations felt bilaterally Ankles * Right ankle: Good ankle dorsiflexion and plantar flexion. No swelling. No TTP of the ankle joint * Left ankle: Good ankle dorsiflexion and plantar flexion. No swelling. No TTP of the ankle joint Feet * Right foot: Negative squeeze test * Left foot: Negative squeeze test Tender points? * No tenderness to palpation of the bilateral trapezius, supraspinatus, anterior costochondral junctions, bilateral suboccipital muscle insertions SKIN No rashes Vital Signs: Last Vital Signs Pulse 84 03/27/25 08:44 BP 122/72 03/27/25 08:44 Pulse Ox 98 03/27/25 08:44 Oxygen Delivery Method Room Air 03/27/25 08:44 BMI result Body Mass Index 23.7 Results Reviewed Results Reviewed: Laboratory Tests 10/10/24 14:08 WBC 8.0 RBC 4.62 Hgb 12.8 Hct 38.5 Plt Count 251 ESR 23 H Sodium 139 Potassium 3.7 Chloride 104 Carbon Dioxide 28 BUN 13 Creatinine 0.67 AST 30 ALT 17 C-Reactive Protein 0.11 Infectious serologies 12/14/23 10/10/24 13:11 14:08 Hep B DNA copies/mL NOT DETECTED Hep B DNA (IU/mL) NOT DETECTED Hepatitis C Ab (EIA) Nonreactive Hepatitis Delta Ab NEGATIVE TB Test (T-Spot) Com Negative XR Right Knee 12/2021 FINDINGS: RIGHT KNEE: Minimal loss of medial compartment joint space. The lateral and patellofemoral compartment joint space is normal. There is trace suprapatellar joint effusion. No bony lytic or sclerotic process seen. There are no loose bodies or bony erosive changes. IMPRESSION: Minimal loss of medial compartment joint space right knee. No visible acute fracture or dislocation. Assessment & Plan Assessment & Plan (1) Seropositive rheumatoid arthritis: Comment: onset about 2009 ++RF -ve CCP hydroxychloroquine stopped due to diabetic retinoapathy. methotrexate stopped due to hep B viremia. on chronic sulfasalazine. Kevzara and Rinvoq not approved. SSZ increased to 3 g daily 09/2023 Code(s): M05.9 - Rheumatoid arthritis with rheumatoid factor, unspecified Category: Medical Plan: #Seropositive RA Patient is a 59 y.o. female with seroposive RA here today for follow up Currently in remission with no evidence of synovitis Plan - SSZ 1500mg bid - RTC 6 months - Labs before visit: CBC, CMP, ESR, CRP (2) Osteoarthritis of right knee: Code(s): M17.11 - Unilateral primary osteoarthritis, right knee Category: Medical Qualifiers: Osteoarthritis type: primary Qualified Code(s): M17.11 - Unilateral primary osteoarthritis, right knee Plan: #Knee OA Patient with right knee pain 2/2 OA Steroid injections no longer efficacious Recommending gel injections, patient will consider (3) Fibromyalgia: Code(s): M79.7 - Fibromyalgia Category: Medical Plan: #Fibromyalgia Fibromyalgia currently under control Plan - Gabapentin 300mg tid - Duloxetine 20mg bid (4) Encounter for monitoring sulfasalazine therapy: Code(s): Z51.81 - Encounter for therapeutic drug level monitoring; Z79.899 - Other group home (current) drug therapy Plan: #Long-term Use of Sulfasalazine Discussed with patient the risks and benefits of sulfasalazine in the management of the rheumatic condition Benefits include: - Reduced pain, reduce mortality, maintenance of remission then reduction of flares Risks include: - GI upset, hemolysis (especially if G6PD deficiency), eosinophilia, headache, dizziness, rash, elevated LFTs Plan I spent 30 minutes reviewing the record and labs, taking a history, examining the patient, discussing the treatment plan, ordering diagnostic work up and documenting in the medical record Medications: New sulfasalazine give with food (meal/snack) 1,500 mg (3 x 500 mg) PO BID 540 tabs 1RF 90 days M05.9 - Rheumatoid arthritis with rheumatoid factor, unspecified Coding Level of Care Code Est Pt Level 4 (94084) Complex EM visit Add On G2211 Diagnoses Seropositive rheumatoid arthritis M05.9 Primary osteoarthritis of right knee M17.11 Osteoarthritis type: primary Fibromyalgia M79.7 Encounter for monitoring sulfasalazine therapy Z51.81; Z79.899
--- OUTSIDE RECORDS SUMMARY | 2025-03-27 09:22 | XMS_ITS | Clinical Summary ---
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 3 Active lisinopril (PRINIVIL,ZEST RIL) 10 MG tablet Take 10 mg by mouth every morning. 3 Active sulfaSALAzine (AZULFIDINE) 500 mg tablet Take 1,000 mg by mouth 4 (four) times a day. 3 Active traZODone (DESYREL) 50 MG tablet Take 75 mg by mouth nightly at bedtime. 3 Active atorvastatin (LIPITOR) 80 MG tablet Take 80 mg by mouth daily. Pt unsure of exact dose Active DULoxetine (CYMBALTA) 60 MG capsule Take 60 mg by mouth daily. Active LANTUS SOLOSTAR U-100 INSULIN 100 unit/mL (3 mL) InPn injection pen Inject 10 Units under the skin every morning AND 40 Units nightly at bedtime. 4 Active insulin aspart U-100 (NOVOLOG FLEXPEN U-100 INSULIN) 100 unit/mL (3 mL) injection penIndications :Type 2 diabetes mellitus with peripheral neuropathy Inject 4-6 Units under the skin 3 (three) times a day with meals. 30 mL 1 4 Active potassium chloride (MICRO-K) 10 mEq CR capsule Take 10 mEq by mouth daily. Active VITAMIN D3 25 mcg (1,000 unit) capsule Take 1,000 Units by mouth daily. Active BD ULTRA-FINE DEEP PEN NEEDLE 32 gauge x NdleIndication s:Type 2 diabetes mellitus with peripheral neuropathy 1 each by Miscellaneous route 5 (five) times a day. 500 each 1 Active Active Problems Problem Noted Date Diagnosed Date Type 2 diabetes mellitus with peripheral neuropa thy 04/14/2023 Assessment & Plan (05/23/2024 11:31 AM EDT): Neuropathy pain levels are stable Assessment & Plan (03/22/2024 11:02 AM EDT): Control is improving based upon the patient's recall of her SMBG readings. No frequent or severe hypoglycemia. She has had a couple lows into the 60's. She will correct and then is fine. Reviewed how to treat and prevent lows. She forgot to nut picker her novolog prescription from the pharmacy after her last visit. She is going to pick this up and start it later today. Continue to work on eating healthy and being active. To call or message with any issues managing her glucose levels. Up to date with opho. To do labs with PCP Assessment & Plan (12/16/2023 12:33 PM EDT): Control is poor based upon her freestyle john pro sensor download. No frequent or severe hypoglycemia. Her average reading is 196, time in range is 40%, time high is 29%, time very high is 26%, time low is 4%, time very low is <1%. She has been having some mild lows over night. She will occasionally wake up with symptoms but not often. Will lower her evening dose of insulin to help prevent the overnight lows. Will start insulin at meals to help prevent the spikes. When she is eating healthier her glucose spikes are not as bad. Will send a referral to meet with the educators to help with improving her diet. Continue to work on eating healthier and being active. To call or message with any issues managing her glucose levels. Assessment & Plan (12/02/2023 8:13 AM EDT): Control is poor based upon the patient's recall of her A1C and her SMBG readings. No frequent or severe hypoglycemia. She was never able to get the trulicity due to the copay cost. After her last visit with her PCP and her A1C being in double digits she is working hard to improve her glucose levels. Discussed using the freestyle john pro sensor to help determine where medications adjustments would be best made. She is agreeable to doing this. Placed the sensor on the back on her left arm. No bleeding or redness at the injection site. Will come back in 2 weeks to download and once able to review her glucose levels will make medication adjustments. Continue to work on eating healthy and being active. To call or message with any issues managing her glucose levels. Up to date with opho. Will request labs from PCP Assessment & Plan (04/14/2023 1:26 PM EDT): The patient was diagnosed with type 2 diabetes in her 40's after having a history of diet controlled gestational diabetes with her 30 years ago. She has symptoms and physical exam findings of peripheral neuropathy. She has retinopathy for which she is being treated with injections. Her control is poor based upon her last A1C of 10.6%. Her fasting SGMB readings look good but the occasional post prandial level is very high. She is currently using lantus to try and control her glucose levels. In the past she used metformin but had to stop after years of use due to severe abdominal pain. She was on glipizide while also using the metformin but this was stopped when started on trulicity. She was on trulicity for over a year with good glucose control but had to stop due to cost of the medication. She then went to lantus. 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 She will have crackers and peanut butter and then is fine. Discussed the use of a CGM to help monitor her glucose levels more and be able to detect a low glucose level before it happens. Will send the paperwork to [facility] to start this process. Will have her lower her lantus from 45 units to 35 units to help prevent the fasting hypoglycemia. Discussed the difference between basal and bolus insulin and how they affect her glucose levels. Will send a prescription for the low dose of trulicity to help with her post prandial levels. Will do any needed PA if not covered by insurance. Continue to work on eating healthy and being active. To call or message with any issues managing her glucose levels. Up to date with ophtho. Foot and nail care good. She was also seen by Dr Villa to discuss the treatment plan. Type 2 diabetes mellitus wit h retinopathy, with long-term current use of insulin 04/14/2023 Assessment & Plan (05/23/2024 11:30 AM EDT): Up to date with ophtho, scheduled to see in August Type 2 diabetes mellitus wit h hyperglycemia, with long-term current use of insulin 04/14/2023 Assessment & Plan (05/23/2024 11:36 AM EDT): Control is improving based upon the patient's SMBG readings. No frequent or severe hypoglycemia. She is going to look into getting medicare part D coverage for her to be able to get a CGM covered. Her glucose levels will be able to be under much better control when she is able to continuously monitor her levels. Will maintain her insulin dosing for now as her levels are doing much better over all. Continue to work on eating healthy and trying to be active. To call or message with any issues managing her glucose levels. Up to date with opho. 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 Not on isi e 04/01/2023 Are you concerned about learning? Not on file 04/01/2023 No 04/01/2023 No 04/01/2023 Digital Access Answer Date Recorded No 04/01/2023 No 04/01/2023 Reliable internet access at home? Not on file 04/01/2023 Device with a working camera? Not on file Comments Unknown Sex and Gender Information Value Date Recorded Sex Assigned at Not on file Legal Sex Female 2:13 PM EDT Gender Identity Not on file Sexual Orientation Not on file Last Filed Vital Signs Vital Sign Reading Time Taken Comments Blood Pressure 120/60 05/23/2024 10:36 AM EDT Pulse 97 05/23/2024 10:36 AM EDT Temperature - - Respiratory Rate - - Oxygen Saturation 97% 05/23/2024 10:36 AM EDT Inhaled Oxygen Concentration - - Weight 70.3 kg (155 lb) 05/23/2024 10:36 AM EDT Height 160.5 cm (5' 3.19 ) 05/23/2024 10:36 AM E DT Body Mass Index 27.29 05/23/2024 10:36 AM EDT Plan of Treatment Health Maintenance Due Date Last Done Comments HEMOGLOBIN A1C 1963 POTASSIUM LEVEL 1963 DEPRESSION SCREENING 1975 HEPATITIS C SCREENING 1981 HIV ONE-TIME SCREENING (18-65 YEARS) 1981 PAP SMEAR 1984 MAMMOGRAM 2003 COLOGUARD 2008 COLONOSCOPY 2008 COLORECTAL CANCER SCREENING 2008 FIT TEST 2008 FOBT 2008 SIGMOIDOSCOPY 2008 VIRTUAL COLONOSCOPY 2008 PNEUMOCOCCAL VACCINES (50+ years) (2 of 2 - PCV) 01/21/2013 01/22/2012 ZOSTER VACCINES (1 of 2) 2013 DIABETIC EYE EXAM 04/14/2023 RSV VACCINE (1 - Risk 60-74 years 1-dose series) 2023 BLOOD PRESSURE 11/21/2024 05/23/2024 CREATININE LEVEL 06/02/2025 06/02/2024 Adult Td,Tdap Booster 06/02/2026 06/02/2016 SMOKING STATUS SCREENING (Once After 26 Yrs) Completed 03/22/2024 COVID-19 VACCINE Completed 05/23/2024, , 10/31/2020, Additional history exists HEPATITIS A VACCINES Aged Out No long er eligible based on patient's age to complete this topic HIB VACCINES Aged Out No longer eligi ble based on patient's age to complete this topic MENINGOCOCCAL VACCINES (ACWY) Aged Out No longer eligible based on patient's age to complete this topic MENINGOCOCCAL VACCINES (B) Aged Out N o longer eligible based on patient's age to complete this topic Medical Devices Not on file Procedures Procedure Name Priority Date/Time Associated Diagnosis Comments COMPREHENSIVE METABOLIC PANEL Routine 06/02/2024 12:24 PM EDT from Last 3 Months or Most Recently Relevant to Health Maintenance Results * Comprehensive metabolic panel (06/02/2024 12:24 PM EDT) us Historical Provider LAB BLOOD ORDERABLES Regine l Result from Last 3 Months or Most Recently Relevant to Health Maintenance Insurance MEDICARE PART A & B MEDICARE PART A & B MEDICARE PART A & B MEDICARE PART A & B MEDICARE PART A & B MEDICARE PART A & B Care Teams 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 It is not the complete legal health record.[facility]
== END 2025-03-27 09:27 | disposition home or self-care (01) ==
LOC: HO.RHES 08:39
PROVIDERS: PCP Internal Medicine; Visit Provider Student in an Organized Health Care Education/Training Program
DX: M05.9 Rheumatoid arthritis with rheumatoid factor, unspecified (principal); M17.11 Unilateral primary osteoarthritis, right knee; M79.7 Fibromyalgia; Z51.81 Encounter for therapeutic drug level monitoring; Z79.899 Other long term (current) drug therapy
CPT/HCPCS: 99214; G2211

== ENCOUNTER → 2025-03-27 08:38 | Outpatient (BNVA) | payer MEDICARE, SELFPAY | PROVIDERS: PCP Internal Medicine; Visit Provider Student in an Organized Health Care Education/Training Program | DX: Z51.81 Encounter for therapeutic drug level monitoring (principal); M05.70 Rheumatoid arthritis with rheumatoid factor of unspecified site without organ or systems involvement; M17.11 Unilateral primary osteoarthritis, right knee; M79.7 Fibromyalgia; Z79.4 Long term (current) use of insulin; Z79.899 Other long term (current) drug therapy | CPT/HCPCS: 99212 ==

== ENCOUNTER 2025-06-04 09:57 | Outpatient (AMB) | payer MEDICARE, SELFPAY ==
--- NOTE | 2025-06-04 10:03 | A.OFFVIS_ITS ---
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 Thermit Present (Rachel) Accompanied by: Self / Same As Patient Allergies wasp bites Allergy (Intermediate, Uncoded 03/27/25 08:48) hives Medication List - Last Reconciled 06/04/25 by Katey Blanco CNM atorvastatin 80 mg PO DAILY cholecalciferol (vitamin D3) (Vitamin D3) 25 mcg PO DAILY diclofenac sodium 1% (Voltaren Arthritis Pain) 2 grams topical BID duloxetine 20 mg PO BID epinephrine 0.3 mg IM Q4H PRN gabapentin 300 mg PO TID insulin aspart U-100 (Novolog FlexPen U-100 Insulin aspart) 4 - 6 units subcut TID insulin glargine (Lantus Solostar U-100 Insulin) 50 units (0.5 mL) subcut BID 90 days ketoconazole 2% 1 appl topical DAILY 30 days lisinopril 10 mg PO DAILY 90 days pen needle, diabetic (BD Ultra-Fine Yessi Pen Needle) As directed once daily quetiapine (Seroquel) 25 mg PO BEDTIME sulfasalazine 1,500 mg (3 x 500 mg) PO BID 90 days Is last menstrual period known: No Post menopausal: Yes Patient : No HPI HPI 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 She is to get her care through [facility] and in [facility]. She had a hysterectomy 10 or 15 years ago for some kind of tumor that was noncancerous that was falling out of her. She has remembers that the doctor or nurse at the time told her she would not need anymore Pap smears. She has not been active for about 3 years because her has some issue. She is disabled because of rheumatoid arthritis and other issues and she has had knee problems as well she is trying to keep moving as best she can she gets her mammograms and was told she needs to go back and get another 1 with the breast ultrasound she thinks she was told she has dense breasts. [facility] Medical History Shoulder pain jail use of drug Myofascial pain Type 2 diabetes, uncontrolled, with nonproliferative retinopathy with macular edema Hypovitaminosis D Hepatitis B Depression Anxiety Fibromyalgia Rheumatoid arthritis Hyperlipidemia Hypertension Diabetes mellitus Surgical History H/O left breast biopsy H/O: knee surgery H/O oral surgery History of hysterectomy Family History (Updated 06/04/25 @ 10:07 by Rachel Talavera MA) Father CVD (cardiovascular disease) HTN (hypertension) Diabetes Brother CVD (cardiovascular disease) Mother Liver cancer Son Asthma Paternal Aunt HTN (hypertension) Diabetes Maternal Aunt Ovarian cancer Social History Household Members: Spouse Housing: House Alcohol intake: current Alcohol intake frequency: holidays/special occasions only Alcohol type: wine and hard liquor Patient Tobacco Use Status: Never used Tobacco e-Cigarette/Vaping Use: Never Used service: No Current occupational status: disabled Cognitive needs: No Hearing needs: No Vision needs: Yes Female Reproductive History Menstrual Age of Menarche: 7 control method: permanent sterilization Total pregnancies: 5 Full term: 2 History of abnormal pap smear: No Physical Exam Vital Signs: Last Vital Signs BP 120/70 06/04/25 10:11 BMI result Body Mass Index 23.2 Const General: healthy appearing, comfortable, no acute distress, well developed and alert Nutritional Appearance: average body habitus Orientation/consciousness: patient oriented x3 Limitations: no limitations HEENT Head: Yes normocephalic Neck Neck: Yes normal visual inspection Chest Chest palpation & inspection: normal inspection of the chest Breast/axilla inspection: normal inspection of the breasts and normal inspection of the axillae Breast/axilla palpation: normal palpation of the breasts and normal palpation of the axillae Resp Effort & Inspection: normal respiratory effort GI Inspection: Yes normal to inspection, No Abdominal wall edema and No distended Palpation (GI): Soft to palpation and nontender Other: Vagina is pink moist atrophic changes noted no cervix no uterus surgically removed vaginal cuff intact no adnexal enlargement or tenderness fair tone with Kegel General: Yes bladder normal to palpation External Female Exam: normal external appearance and normal appearance of the urethra Speculum Exam - Vagina: normal appearance of the vagina, normal palpation and normal vaginal discharge Speculum Exam - Cervix: Cervix absent Bimanual exam- vagina & uterus: normal bimanual exam, normal palpation, bladder normal to palpation and uterus absent Bimanual Exam- Adnexa, other: normal adnexae, no masses, normal and No adnexal tenderness Neuro General: patient oriented x3 Assessment & Plan Assessment & Plan (1) Postmenopausal: Code(s): Z78.0 - Asymptomatic menopausal state Category: Medical (2) S/P hysterectomy: Comment: Denies ever having any cancers concerns believes she had a large fibroid. Code(s): Z90.710 - Acquired absence of both cervix and uterus Category: Surgical Plan -----Discussed in this visit the following: healthy balanced diet, regular and consistent exercise, getting recommended health screens, doing the best she can for her particular health concerns, kegel exercises, pap smear screening and followup recommendations, mammography screening and SBE, normal changes in cycles in her life stage--- .This note is constructed using voice recognition software. While every effort has been made to ensure accuracy, melter supervisor open hearth furnace errors may have been included. Discussed her past tong setter history she is fairly certain she was told everything was noncancerous and she would not need another Pap smear ever again. She has not been sexually active in 3 years because her has issues as well. Discussed that if she were to resume activity she would need to go slow with lubrication secondary to postmenopausal changes for herself. Discussed continuing movement to maintain flexibility as much as possible She is up-to-date with her primary care and is getting all of her other cancer screenings including mammography and we will be going for follow-up mammogram and ultrasound for what she believes are dense breasts. Discussed that while she does not need Pap smears any longer and we might say come back every year if she chooses to defer a tong setter annual exam if she waits longer than 3 years she would be a new patient again she is keeping up with her primary care provider and all her other screens. Coding Level of Care Code New Pt Prev Care 40-64y(43561) Diagnoses Postmenopausal Z78.0 S/P hysterectomy Z90.710
[2025-06-04 10:11] VITALS: BP 120/70; BMI 23.2
--- OUTSIDE RECORDS SUMMARY | 2025-06-04 11:46 | XMS_ITS | Clinical Summary ---
Author Organization [facility] Address [address] [place] [id number] Phone Care Team Providers Care Tennis Ball Cover Cementer Name Role Phone Vadim Sal MD Primary [...] treat and prevent lows. 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 04/14/2023 Family History [...] 05/23/2024 10:36 AM EDT Plan of Treatment Upcoming Encounters Date Type Department Care Team (Late st Contact Info) Description 07/04/2025 1:10 PM EST Office Visit [facility] [address] [place] [address] Aranza Saunders MD [address] [facility], [address] [place] [address] Maria Antonia Ngo PA-C [address] [place] [address] Health Maintenance Due Date Last Done Comments HEMOGLOBIN A1C 1963 POTASSIUM LEVEL 1963 DEPRESSION SCREENING 1975 HEPATITIS C SCREENING 1981 HIV ONE-TIME SCREENING (18-65 YEARS) 1981 PAP SMEAR 1984 MAMMOGRAM 2003 COLOGUARD 2008 COLONOSCOPY 2008 COLORECTAL CANCER SCREENING 2008 FIT TEST 2008 FOBT 2008 SIGMOIDOSCOPY 2008 VIRTUAL COLONOSCOPY 2008 PNEUMOCOCCAL VACCINES (50+ years) (2 of 2 - PCV) 01/21/2013 01/22/2012 RSV VACCINE (1 - Risk 50-74 years 1-dose series) 2013 ZOSTER VACCINES (1 of 2) 2013 DIABETIC EYE EXAM 04/14/2023 BLOOD PRESSURE 11/21/2024 05/23/2024 INFLUENZA VACCINE (#1) 2025 , 05/25/2023, 07/12/2020, Additional history exists COVID-19 VACCINE (2024- season) 2025 05/23/2024, 09/29/2021, 10/31/2020, Additional history exists CREATININE LEVEL 06/02/2025 06/02/2024 Adult Td,Tdap Booster 06/02/2026 06/02/2016 SMOKING STATUS SCREENING (Once After 26 Yrs) Completed 03/22/2024 HEPATITIS A VACCINES Aged Out No long [...] Comprehensive metabolic panel (06/02/2024 12:24 PM EDT) Historical Provider LAB BLOOD ORDERABLES Regine l Result from Last 3 Months or Most Recently Relevant to Health Maintenance Insurance MEDICARE PART A & B MEDICARE PART A & B MEDICARE PART A & B MEDICARE PART A & B MEDICARE PART A & B MEDICARE PART A & B Care Teams Tennis Ball Cover Cementer Relationship Specialty Start Date End Date Vadim Sal MD [address] [facility] [place] [place] [address] PCP - General Internal Medicine 03/16/23 Additional Source Comments The information contained in this document represents components of the legal health record. It is not the complete legal health record.[facility]
== END 2025-06-04 11:00 | disposition home or self-care (01) ==
LOC: HO.HWS 09:59
PROVIDERS: PCP Internal Medicine; Visit Provider Advanced Practice Midwife
DX: Z01.419 Encounter for gynecological examination (general) (routine) without abnormal findings (principal); Z78.0 Asymptomatic menopausal state; Z90.710 Acquired absence of both cervix and uterus
CPT/HCPCS: G0101

== ENCOUNTER → 2025-06-04 09:57 | Outpatient (BNVA) | payer MEDICARE, SELFPAY | PROVIDERS: PCP Internal Medicine; Visit Provider Advanced Practice Midwife | DX: Z78.0 Asymptomatic menopausal state (principal); Z90.710 Acquired absence of both cervix and uterus | CPT/HCPCS: G0101 ==

== ENCOUNTER 2025-06-13 13:30 | Outpatient (AMB) | payer MEDICARE, SELFPAY ==
[2025-06-13 14:02] VITALS: PULSE 95; O2SAT 98; BMI 23.3
--- NOTE | 2025-06-13 14:02 | MHC.OFFVIS ---
Vital Signs 06/13/25 14:02 Height 5 ft 7 in Weight 149 lb BMI 23.3 Pulse 95 Pulse Source Pulse Oximeter Pulse Oximetry (%) 98 Oxygen Delivery Method Room Air Intake Visit Reasons: f/u, 1 yr. Allergies wasp bites Allergy (Intermediate, Uncoded 03/27/25 08:48) hives HPI Comments Details: History of Present Illness The patient is a 60-year-old female presenting with chronic hepatitis B and rheumatoid arthritis. Her hepatitis B condition displays an undetectable viral load, as noted in October, and is assessed as F0 on the liver fibrosis scale, with no coinfection evidence. She has not had a liver ultrasound since 2022. Regarding rheumatoid arthritis management, the patient relies on sulfasalazine for treatment. Due to insurance constraints and high costs, biologic therapies and DMARDs exceed her budget. Joint discomfort reported, focusing on the hands and back, affects her mobility in bed, although her overall condition is described as stable with no other significant complaints. Review of Systems - Musculoskeletal: Reports joint discomfort in hands and back. - General: Denies other significant complaints; feels generally unremarkable. Physical Exam - Vital Signs- Stable - Oropharynx- Clear - Pulmonary- Lungs clear - Cardiovascular- Heart rate rhythm regular - Gastrointestinal- Abdomen soft, non-tender - Musculoskeletal- No tenderness noted in extremities Results - Labs: Hepatitis B viral load undetectable as of October - Tests and Diagnostics: Liver fibrosis scale F0 with no signs of hepatitis D; Last liver ultrasound in 2022 Plan Patient was informed and verbally consented to the use of an ambient scribe for clinic note documentation during this visit. 1. Chronic viral hepatitis B with delta-agent B18.0 HCC 29 The patient's hepatitis B remains under control with no detectable viral load. Recommend immediate liver ultrasound with blood work in six months to preempt malignancy risks. Evaluation involves hepatitis B viral load, fibrosis panel, CBC, and creatinine measurements, with an annual review in stable circumstances. 2. Rheumatoid arthritis, unspecified M06.9 HCC 40 Rheumatoid arthritis treatment continues with sulfasalazine due to cost barriers of alternative therapies. Consideration for addressing joint pain in hands and back through symptomatic management is necessary, albeit without changes to the current pharmaceutical regimen due to insurance coverage restrictions. Discussion Notes During the consultation, we explored both the status and management of chronic hepatitis B and rheumatoid arthritis. I explained the benefits and necessity of ongoing hepatitis monitoring through immediate and scheduled liver ultrasounds and regular viral load assessments. Discussed financial implications of rheumatoid arthritis treatment, agreeing on sulfasalazine continuation and exploring ways to alleviate joint discomfort. We reviewed follow-up protocol, emphasizing promptly seeking medical attention should symptoms change significantly. Medical Decision Making Chronic hepatitis B and rheumatoid arthritis form the core clinical focus of this visit. Hepatitis B remains controlled, yet vigilance through imaging and labs is essential for early malignancy detection. Rheumatoid arthritis therapy aligns with economic considerations, maintaining sulfasalazine treatment. Addressing joint discomfort encompasses potential future symptomatic management adjustments. Immediate imaging and longer-term monitoring comprise the goals, balancing disease control with accessible care. Patient Instructions - Continue sulfasalazine as prescribed for rheumatoid arthritis management. - Schedule and complete liver ultrasounds as planned. - Attend all follow-up appointments for further evaluation. See in one year with blood in six months - Report any changes in joint discomfort or other symptoms immediately. 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 Myofascial pain Type 2 diabetes, uncontrolled, with nonproliferative retinopathy with macular edema Hypovitaminosis D Hepatitis B Depression Anxiety Fibromyalgia Rheumatoid arthritis Hyperlipidemia Hypertension Diabetes mellitus Surgical History H/O left breast biopsy H/O: knee surgery H/O oral surgery History of hysterectomy Family History (Updated 06/04/25 @ 10:07 by Rachel Talavera MA) Father CVD (cardiovascular disease) HTN (hypertension) Diabetes Brother CVD (cardiovascular disease) Mother Liver cancer Son Asthma Paternal Aunt HTN (hypertension) Diabetes Maternal Aunt Ovarian cancer Social History Household Members: Spouse Housing: House Alcohol intake: current Alcohol intake frequency: holidays/special occasions only Alcohol type: wine and hard liquor Patient Tobacco Use Status: Never used Tobacco e-Cigarette/Vaping Use: Never Used service: No Current occupational status: disabled Cognitive needs: No Hearing needs: No Vision needs: Yes Female Reproductive History Menstrual Age of Menarche: 7 Physical Exam Vital Signs: Last Vital Signs Pulse 95 06/13/25 14:02 Pulse Ox 98 06/13/25 14:02 Oxygen Delivery Method Room Air 06/13/25 14:02 BMI result Body Mass Index 23.3 Assessment & Plan Assessment & Plan (1) Chronic hepatitis B: Code(s): B18.1 - Chronic viral hepatitis B without delta-agent Category: Medical Plan: as above Orders: Orders Prothrombin Time INR 6 Months B18.1 - Chronic viral hepatitis B without delta-agent Liver Panel 6 Months B18.1 - Chronic viral hepatitis B without delta-agent Hepatitis Delta Antibody 6 Months B18.1 - Chronic viral hepatitis B without delta-agent Hepatitis B Viral DNA Qn Today B18.1 - Chronic viral hepatitis B without delta-agent Liver Fibrosis Pnl 6 Months B18.1 - Chronic viral hepatitis B without delta-agent Complete Blood Count Auto Diff 6 Months B18.1 - Chronic viral hepatitis B without delta-agent Hepatitis C Antibody 6 Months B18.1 - Chronic viral hepatitis B without delta-agent US abdomen complete Today B18.1 - Chronic viral hepatitis B without delta-agent Coding Level of Care Code Est Pt Level 3 (63325) Diagnoses Chronic hepatitis B B18.1
--- OUTSIDE RECORDS SUMMARY | 2025-06-13 16:25 | XMS_ITS | Clinical Summary ---
Author Organization [facility] Address [address] [place] [phone] Phone Care Team Providers Care Slitting Machine Operator Name Role Phone Vadim Sal MD Primary Care Provider [phone] Allergies Active Allergy Reactions Criticality Noted Date [...] treat and prevent lows. 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 04/14/2023 Family History [...] PM EST Office Visit [facility] [address] [place] [address] Aranza Saunders MD [address] [facility] [place] [address] Maria Antonia Ngo PA-C [address] [place] [address] Health Maintenance Due Date Last Done Comments [...] Date/Time Associated Diagnosis Comments COMPREHENSIVE METABOLIC PANEL (CMP) Routine 06/02/2024 12:24 PM EDT from Last 3 Months or Most Recently Relevant to Health Maintenance Results * Comprehensive metabolic panel (06/02/2024 12:24 PM EDT) Historical Provider LAB BLOOD BKR ORDERABLES Final Result from Last 3 Months or Most Recently Relevant to Health Maintenance Insurance MEDICARE PART A & B MEDICARE PART A & B MEDICARE PART A & B MEDICARE PART A & B MEDICARE PART A & B MEDICARE PART A & B Care Teams Slitting Machine Operator Relationship Specialty Start Date End Date Vadim Sal MD 1963 [facility] [address] PCP - General Internal Medicine 03/16/23 Additional Source Comments The information contained in this document represents components of the legal health record. It is not the complete legal health record.[facility]
== END 2025-06-13 14:31 | disposition home or self-care (01) ==
LOC: HO.HID 13:30
PROVIDERS: PCP Internal Medicine; Visit Provider Internal Medicine
DX: B18.1 Chronic viral hepatitis B without delta-agent (principal)
CPT/HCPCS: 99213

== ENCOUNTER → 2025-06-13 13:30 | Outpatient (BNVA) | payer MEDICARE, SELFPAY | PROVIDERS: PCP Internal Medicine; Visit Provider Internal Medicine | DX: B18.1 Chronic viral hepatitis B without delta-agent (principal); M06.842 Other specified rheumatoid arthritis, left hand; M06.841 Other specified rheumatoid arthritis, right hand; M45.9 Ankylosing spondylitis of unspecified sites in spine | CPT/HCPCS: 99212 ==

== ENCOUNTER 2025-07-02 12:59 | Outpatient (REF) | payer MEDICARE, SELFPAY ==
--- NOTE | ~2025-07-02 | MM_ITS ---
EXAMINATION(S): MM DIAGNOSTIC DIGITAL BREAST TOMOSYNTHESIS, LEFT CLINICAL INFORMATION: Callback from screening for questionable left breast architectural distortion in the left breast posterior depth on the CC view. -November 24, 2017, describes two groups of calcifications of the left breast, both recommended for stereotactic needle core biopsy. -December 03, 2017: Upper outer quadrant more anterior calcifications sampled with placement of T-shaped marker. Upper outer quadrant posterior with placement of cylindrical-shaped marker. Both pathology results were benign. COMPARISON: Comparison made to multiple prior, most recent February 05, 2025, and most remote May 12, 2018. TECHNIQUE: Digital breast tomosynthesis is performed in full field ML 90 degrees along with computer-aided detection (CAD). Synthesized 2D images are generated from the tomosynthesis. Spot compression tomosynthesis were obtained. FINDINGS: BREAST COMPOSITION: The breasts are heterogeneously dense, which may obscure small masses. LEFT BREAST: No significant masses, suspicious calcifications or other abnormalities are seen. On today's images, the architectural distortion seen on the CC view centered at the top hat shape stereotactic needle core biopsy marker located in the upper outer quadrant (but better seen on the CC view) has similar appearance to multiple prior studies as far back as 2018, and is presumably associated with prior stereotactic biopsy. MM/MM tomosynthesis added views L IMPRESSION: LEFT BREAST: Benign, no mammographic evidence of malignancy. Patient may return to routine screening mammogram. ASSESSMENT: BI-RADS: Category 2: Benign RECOMMENDATION: 1 year F/U Results were provided to the patient at time of visit by the technologist. This patient's information was entered into a reminder system with a target due date for their next mammogram. Electronically signed by: Dain Bueno MD 07/02/2025 01:[address] [facility]
== END 2025-07-02 13:00 | disposition home or self-care (01) ==
LOC: HO.MAMMO 12:59
PROVIDERS: PCP Internal Medicine; Visit Provider Internal Medicine
DX: R92.8 Other abnormal and inconclusive findings on diagnostic imaging of breast (principal)
CPT/HCPCS: 77061; 77065

== ENCOUNTER → 2025-07-02 13:30 | Outpatient (BNV) | payer MEDICARE, SELFPAY | PROVIDERS: PCP Internal Medicine; Visit Provider Radiology Body Imaging | DX: R92.1 Mammographic calcification found on diagnostic imaging of breast (principal) | CPT/HCPCS: 77065; G0279 ==